=== PATIENT | male | born 1930 | race Caucasian/White ===

== ENCOUNTER 2017-03-15 12:08 | Inpatient (IN) | payer OTHER, MEDICARE ==
[2017-03-15] MEDS ORDERED: IPRATROPIUM/ALBUTEROL 0.5-2.5 MG/3 ML AMPUL NEB ONE (12:12)
[2017-03-15] MEDS ORDERED: ALBUTEROL SULFATE 0.083% NEB 2.5 MG/3 ML AMPUL NEB ONE (12:12)
--- NOTE | 2017-03-15 12:15 | ER Document Report ---
ED General - General Stated Complaint: DIFFICULTY BREATHING Time Seen by Provider: 03/15/17 12:12 Mode of Arrival: Medic Information source: Patient, Emergency Med Personnel Notes: 86-year-old male history of COPD presents in respiratory distress. Patient was found by EMS to be satting 72% on room air. Patient had been complaining of shortness of breath over 3 days with productive cough. Patient was given 2 DuoNeb's 125 mg of Cymetra prior to arrival notes improvement but is still breathing very hard TRAVEL OUTSIDE OF THE [place] IN LAST 30 DAYS: No - HPI Onset: Other - 3 day duration Onset/Duration: Persistent Quality of pain: No pain Severity: Severe Pain Level: Denies Associated symptoms: Productive cough - Yellow cough, Shortness of breath Exacerbated by: Walking, Coughing Relieved by: Denies Similar symptoms previously: No Recently seen / treated by doctor: No - Related Data Allergies/Adverse Reactions: Penicillins Allergy (Verified 03/15/17 13:02) Past Medical History - Social History Smoking Status: Current Every Day Smoker Cigarette use (# per day): Yes Chew tobacco use (# tins/day): No Smoking Education Provided: Yes - Patient counselled regarding cessation for 4 minutes Family History: Reviewed & Not Pertinent Review of Systems - Review of Systems Notes: REVIEW OF SYSTEMS: CONSTITUTIONAL : Denies fever, chills, or sweats. Denies recent illness. EENT: Denies eye, ear, throat, or mouth pain or symptoms. Denies nasal or sinus congestion or discharge. Denies throat, tongue, or mouth swelling or difficulty swallowing. CARDIOVASCULAR: Denies chest pain. Denies palpitations or racing or irregular heart beat. Denies ankle edema. RESPIRATORY: Admits shortness of breath difficulty breathing GASTROINTESTINAL: Denies abdominal pain or distention. Denies nausea, vomiting , or diarrhea. Denies blood in vomitus, stools, or per rectum. Denies black, tarry stools. Denies constipation. GENITOURINARY: Denies difficulty urinating, painful urination, burning, frequency, blood in urine, or discharge. MUSCULOSKELETAL: Denies back or neck pain or stiffness. Denies joint pain or swelling. SKIN: Denies rash, lesions or sores. HEMATOLOGIC : Denies easy bruising or bleeding. LYMPHATIC: Denies swollen, enlarged glands. NEUROLOGICAL: Denies confusion or altered mental status. Denies passing out or loss of consciousness. Denies dizziness or lightheadedness. Denies headache. Denies weakness or paralysis or loss of use of either side. Denies problems with gait or speech. Denies sensory loss, numbness, or tingling. Denies seizures. PSYCHIATRIC: Denies anxiety or stress. Denies depression, suicidal ideation, or homicidal ideation. ALL OTHER SYSTEMS REVIEWED AND NEGATIVE. Dictation was performed using [employer] voice recognition software PHYSICAL EXAMINATION: GENERAL: Cachectic male significant respiratory distress HEAD: Atraumatic, normocephalic. EYES: Pupils equal round and reactive to light, extraocular movements intact, sclera anicteric, conjunctiva are normal. ENT: Nares patent, oropharynx clear without exudates. Moist mucous membranes. NECK: Normal range of motion, supple without lymphadenopathy LUNGS: Decreased breath sounds all throughout faint inspiratory wheezing significant respiratory distress with intercostal supraclavicular retractions HEART: Regular rate and rhythm without murmurs ABDOMEN: Soft, nontender, nondistended abdomen. No guarding, no rebound. No masses appreciated. Musculoskeletal: Normal range of motion, no pitting or edema. No cyanosis. NEUROLOGICAL: Cranial nerves grossly intact. Normal speech, normal gait. Normal sensory, motor exams PSYCH: Normal mood, normal affect. SKIN: Warm, Dry, normal turgor, no rashes or lesions noted. Physical Exam - Vital signs Vitals: Resp 24 H 03/15/17 12:20 Course - Re-evaluation Re-evalutation: 03/15/17 12:15 Patient's O2 sats now has improved significantly at rest the patient is still having significant respiratory distress - Vital Signs Vital signs: Temp Pulse Resp BP Pulse Ox 21 H 106/50 L 96 03/15/17 13:01 03/15/17 13:01 03/15/17 13:01 - Laboratory Result Diagrams: 03/15/17 12:10 03/15/17 12:10 Laboratory results interpreted by me: 03/15/17 03/15/17 03/15/17 12:10 12:10 12:10 WBC 11.1 H Plt Count 138 L Lymphocytes % 12.6 L Absolute Neutrophils 8.4 H VBG pH 7.26 L VBG pCO2 84.2 H* VBG HCO3 37.3 H Chloride 93 L Carbon Dioxide 36 H BUN 23 H Glucose 127 H Calcium 10.3 H Direct Bilirubin 0.5 H Critical Care Note - Critical Care Note Total time excluding time spent on procedures (mins): 37 Comments: please allow for 37 minutes of CC time given respiratroy distress, hypercapnea, use of BIPAP and inpatient IMCU admission. direct face time with patient, family and admitting physician Discharge - Discharge Clinical Impression: Hypercapnia COPD (chronic obstructive pulmonary disease) Qualifiers: COPD type: chronic bronchitis Chronic bronchitis type: simple Qualified Code(s) : J41.0 - Simple chronic bronchitis Condition: Serious Disposition: ADMITTED INPATIENT Admitting Provider: Hospitalist Unit Admitted: IMCU
[2017-03-15 12:34] LABS: VENOUS BLOOD BASE EXCESS 6.3 mmol/L; VENOUS BLOOD HCO3 37.3 mmol/L (20-32); VENOUS BLOOD PH 7.26 (7.30-7.42)
[2017-03-15 12:36] LABS: ABSOLUTE LYMPHOCYTES (AUTO) 1.4 10^3/uL (0.5-4.7); ABSOLUTE MONOCYTES (AUTO) 1.2 10^3/uL (0.1-1.4); ABSOLUTE NEUT (AUTO) 8.4 10^3/uL (1.7-8.2); BASOPHILS % (AUTO) 0.3 % (0-2); EOSINOPHILS % (AUTO) 0.1 % (0-6); HEMATOCRIT 46.3 % (37.9-51.0); HEMOGLOBIN 15.8 g/dL (13.5-17.0); HGB HCT DIFFERENCE 1.1; LYMPHOCYTES % (AUTO) 12.6 % (13-45); MEAN CORPUSCULAR HEMOGLOBIN 31.5 pg (27.0-33.4); MEAN CORPUSCULAR HGB CONC 34.2 g/dL (32.0-36.0); MEAN CORPUSCULAR VOLUME 92 fl (80-97); MONOCYTES % (AUTO) 11.2 % (3-13); RED BLOOD COUNT 5.02 10^6/uL (4.35-5.55); RED CELL DISTRIBUTION WIDTH 13.6 % (11.5-14.0); SEGMENTED NEUTROPHILS % (AUTO) 75.8 % (42-78); WHITE BLOOD COUNT 11.1 10^3/uL (4.0-10.5)
[2017-03-15 12:37] LABS: VENOUS BLOOD PCO2 84.2 mmHg (35-63)
[2017-03-15 12:48] LABS: ALANINE AMINOTRANSFERASE 39 U/L (21-72); ALBUMIN 4.3 g/dL (3.5-5.0); ALKALINE PHOSPHATASE 116 U/L (38-126); ANION GAP 12 (5-19); ASPARTATE AMINO TRANSFERASE 32 U/L (17-59); BILIRUBIN,DIRECT 0.5 mg/dL (0.0-0.4); BILIRUBIN,TOTAL 0.7 mg/dL (0.2-1.3); BLOOD UREA NITROGEN 23 mg/dL (7-20); CALCIUM 10.3 mg/dL (8.4-10.2); CARBON DIOXIDE 36 mmol/L (22-30); CHLORIDE 93 mmol/L (98-107); CREATININE RESULT 0.66 mg/dL (0.52-1.25); GLUCOSE 127 mg/dL (75-110); POTASSIUM 4.4 mmol/L (3.6-5.0); SODIUM 141.4 mmol/L (137-145); TOTAL PROTEIN 7.3 g/dL (6.3-8.2)
--- NOTE | 2017-03-15 12:50 | RADIOLOGY REPORT (SQ) ---
EXAM DESCRIPTION: CHEST SINGLE VIEW COMPLETED DATE/TIME: 03/15/2017 12:42 pm REASON FOR STUDY: bed 9 sepsis protocol COMPARISON: 07/27/2007 NUMBER OF VIEWS: One view. TECHNIQUE: Single frontal radiographic view of the chest acquired. LIMITATIONS: None. FINDINGS: LUNGS AND PLEURA: No opacities, masses or pneumothorax. No pleural effusion. Attenuated bl ood vessels and flattened manuel-diaphragms. MEDIASTINUM AND HILAR STRUCTURES: No masses. Contour normal. HEART AND VASCULAR STRUCTURES: Heart normal in size. Normal vasculature. BONES: No acute findings. HARDWARE: None in the chest. OTHER: No other significant finding. IMPRESSION: COPD. NO ACUTE RADIOGRAPHIC FINDING IN THE CHEST. TECHNICAL DOCUMENTATION: JOB ID: [id number] [employer]- All Rights Reserved
[2017-03-15] MEDS ORDERED: ACETAMINOPHEN 325 MG TABLET PO PRN (13:27)
[2017-03-15] MEDS ORDERED: ONDANSETRON 4 MG TAB.RAPDIS PO PRN (13:27)
--- NOTE | 2017-03-15 13:54 | PDOC H&P ---
History of Present Illness Admission Date/PCP: LAURIE KELLOGG MD Patient complains of: Shortness of breath History of Present Illness: ARACELI PICKETT is a 86 year old male presents to the emergency room due to not been able to breathe. Patient's called paramedics due to patient being sick. Per ER report when patient was seen by the paramedics his O2 sat was in the low 80s. When patient arrived to the emergency room patient was placed on BiPAP due to venous blood gas demonstrated a PCO2 of 84. During my encounter patient was alert and oriented person place and time and answering questions appropriately is at bedside. Patient stated that he had been short of breath for the last several days. Patient also reports that he has been coughing up more phlegm than normal. states that she has noticed that he has not been himself for at least 4-5 days. also was concerned about patient's weight loss. reports that pulmonary doctor stated that he possibly saw a mass on an x-ray. states that no additional studies have been done since then. Past Medical History Cardiac Medical History: Reports: Hyperlipidema, Hypertension Pulmonary Medical History: Reports: Chronic Obstructive Pulmonary Disease (COPD) Past Surgical History Past Surgical History: Reports: Tonsillectomy, Vascular Surgery - veins stripped , carotid artery Social History Smoking Status: Current Every Day Smoker Family History Family History: Reviewed & Not Pertinent Parental Family History Reviewed: Yes - Father was an alcoholic, mother from old age Children Family History Reviewed: Yes Sibling(s) Family History Reviewed.: Yes Medication/Allergy Allergies/Adverse Reactions: Penicillins Allergy (Verified 03/15/17 13:02) Review of Systems Constitutional: PRESENT: fatigue, weakness, weight loss Eyes: ABSENT: visual disturbances Ears: ABSENT: hearing changes Cardiovascular: ABSENT: chest pain, dyspnea on exertion, edema, orthropnea, palpitations Respiratory: PRESENT: cough, dyspnea, sputum Gastrointestinal: ABSENT: abdominal pain, constipation, diarrhea, hematemesis, hematochezia, nausea, vomiting Genitourinary: ABSENT: dysuria, hematuria Musculoskeletal: ABSENT: joint swelling Integumentary: ABSENT: rash, wounds Neurological: ABSENT: abnormal gait, abnormal speech, confusion, dizziness, focal weakness, syncope Psychiatric: ABSENT: anxiety, depression, homidical ideation, suicidal ideation Endocrine: ABSENT: cold intolerance, heat intolerance, polydipsia, polyuria Hematologic/Lymphatic: ABSENT: easy bleeding, easy bruising Physical Exam Vital Signs: Temp Pulse Resp BP Pulse Ox 21 H 106/50 L 96 03/15/17 13:01 03/15/17 13:01 03/15/17 13:01 Intake & Output 03/14/17 03/15/17 03/16/17 06:59 06:59 06:59 Weight 49.442 kg General appearance: PRESENT: mild distress, other - Frail, appears older than stated age, temporal wasting, BiPAP machine in place Head exam: PRESENT: atraumatic, normocephalic Eye exam: PRESENT: conjunctiva pink, EOMI. ABSENT: scleral icterus Ear exam: PRESENT: normal external ear exam Mouth exam: PRESENT: moist, tongue midline Neck exam: ABSENT: carotid bruit, JVD, lymphadenopathy, thyromegaly Respiratory exam: PRESENT: prolonged expiratory phas - Fair air movement heard, wheezes Cardiovascular exam: PRESENT: RRR, tachycardia. ABSENT: diastolic murmur, rubs , systolic murmur Pulses: PRESENT: normal dorsalis pedis pul Vascular exam: PRESENT: normal capillary refill GI/Abdominal exam: PRESENT: normal bowel sounds, soft. ABSENT: distended, guarding, mass, organolmegaly, rebound, tenderness Rectal exam: PRESENT: deferred Extremities exam: PRESENT: full ROM. ABSENT: calf tenderness, clubbing, pedal edema Neurological exam: PRESENT: alert, awake, oriented to person, oriented to place , oriented to time, oriented to situation, CN II-XII grossly intact. ABSENT: motor sensory deficit Psychiatric exam: PRESENT: appropriate affect, normal mood. ABSENT: homicidal ideation, suicidal ideation Skin exam: PRESENT: dry, intact, warm. ABSENT: cyanosis, rash Results Laboratory Results: 03/15/17 12:10 03/15/17 12:10 03/15/17 03/15/17 03/15/17 12:10 12:10 12:10 WBC 11.1 H RBC 5.02 Hgb 15.8 Hct 46.3 MCV 92 MCH 31.5 MCHC 34.2 RDW 13.6 Plt Count 138 L Seg Neutrophils % 75.8 Lymphocytes % 12.6 L Monocytes % 11.2 Eosinophils % 0.1 Basophils % 0.3 Absolute Neutrophils 8.4 H Absolute Lymphocytes 1.4 Absolute Monocytes 1.2 Absolute Eosinophils 0.0 Absolute Basophils 0.0 VBG pH VBG pCO2 VBG HCO3 VBG Base Excess Sodium 141.4 Potassium 4.4 Chloride 93 L Carbon Dioxide 36 H Anion Gap 12 BUN 23 H Creatinine 0.66 Est GFR ( Amer) > 60 Est GFR (Non-Af Amer) > 60 Glucose 127 H Lactic Acid 1.4 Calcium 10.3 H Total Bilirubin 0.7 AST 32 ALT 39 Alkaline Phosphatase 116 Total Protein 7.3 Albumin 4.3 03/15/17 12:10 WBC RBC Hgb Hct MCV MCH MCHC RDW Plt Count Seg Neutrophils % Lymphocytes % Monocytes % Eosinophils % Basophils % Absolute Neutrophils Absolute Lymphocytes Absolute Monocytes Absolute Eosinophils Absolute Basophils VBG pH 7.26 L VBG pCO2 84.2 H* VBG HCO3 37.3 H VBG Base Excess 6.3 Sodium Potassium Chloride Carbon Dioxide Anion Gap BUN Creatinine Est GFR ( Amer) Est GFR (Non-Af Amer) Glucose Lactic Acid Calcium Total Bilirubin AST ALT Alkaline Phosphatase Total Protein Albumin Impressions: Chest X-Ray 03/15/17 12:09 IMPRESSION: COPD. NO ACUTE RADIOGRAPHIC FINDING IN THE CHEST. Assessment & Plan - Diagnosis (1) Acute respiratory failure with hypoxia and hypercapnia Is this a current diagnosis for this admission?: Yes Plan: We will place patient on steroids, breathing treatments, and antibiotics. Patient will continue on BiPAP. Will obtain ABG. Once patient's respiratory function is more stable will obtain CT of chest abdomen and pelvis. (2) COPD (chronic obstructive pulmonary disease) Qualifiers: COPD type: chronic bronchitis Chronic bronchitis type: simple Qualified Code(s): J41.0 - Simple chronic bronchitis Is this a current diagnosis for this admission?: Yes Plan: We will place patient on steroids, breathing treatments, and antibiotics. Will check ABG. Will continue patient on BiPAP. (3) Protein-calorie malnutrition, severe Is this a current diagnosis for this admission?: Yes Plan: Concern for malignancy as to why patient has continued to lose weight. Will check CT of chest abdomen and pelvis once respiratory function has stabilized. Have also recommended that patient see GI for outpatient colonoscopy and EGD. Will place patient on Ensure with meals. In addition patient with has been placed on regular diet. (4) Tobacco abuse Is this a current diagnosis for this admission?: Yes Plan: Encourage patient to discontinue tobacco use. (5) Dyspnea Qualifiers: Dyspnea type: acute respiratory distress Qualified Code(s): R06.03 - Acute respiratory distress Is this a current diagnosis for this admission?: Yes Plan: Secondary to COPD exacerbation: We will continue with steroids, breathing treatments, and antibiotics (6) CAD (coronary artery disease) Is this a current diagnosis for this admission?: Yes Plan: Patient denies chest pain. Will continue to monitor patient (7) Hypertension Qualifiers: Hypertension type: essential hypertension Qualified Code(s): I10 - Essential (primary) hypertension Is this a current diagnosis for this admission?: Yes Plan: Monitor patient's blood pressure throughout hospitalization. (8) Hyperlipidemia Is this a current diagnosis for this admission?: Yes Plan: Continue statin (9) DVT prophylaxis Is this a current diagnosis for this admission?: Yes Plan: Heparin for DVT prophylaxis - Time Time Spent: 30 to 50 Minutes Anticipated discharge: Home
[2017-03-15] MEDS: NORMAL SALINE 1000 ML 1,000 ML IV PRN (14:29)
[2017-03-15] MEDS: METHYLPREDNISOLONE INJ 40 MG/1 ML SDV IV SCH ×2 (14:33→21:07)
[2017-03-15] MEDS: HEPARIN SOD (PORCINE) 5,000 UNIT/ML 1 ML SYRINGE SUBCUT SCH ×2 (14:33→21:07)
[2017-03-15] MEDS ORDERED: LEVOFLOXACIN 500 MG/D5W RTU 500 MG/100 ML RTUPB IV SCH (15:00)
[2017-03-15] MEDS: LEVALBUTEROL HCL NEB 0.63 MG/3 ML AMPUL NEB SCH ×2 (15:34→20:01)
[2017-03-15 16:23] LABS: ARTERIAL BLOOD BASE EXCESS -0.2 mmol/L; ARTERIAL BLOOD O2 SATURATION 96.4 % (94-98)
[2017-03-15] MEDS ORDERED: INFLUENZA ADLT QUAD (36MOS+) 2017-18 VAC 0.5 ML SYR IM PRN (16:52)
--- NOTE | 2017-03-15 19:01 | PDOC CONSULTATION ---
Consultation Consult Date: 03/15/17 Attending physician:: KATHERIN RAMEY Consult reason:: Shortness of breath History of Present Illness Admission Date/PCP: 03/15/17 13:28 LAURIE KELLOGG MD Patient complains of: Shortness of breath History of Present Illness: ARACELI PICKETT is a 86 year old male presents to the emergency room due to not been able to breathe. Patient's called paramedics due to patient being sick. Per ER report when patient was seen by the paramedics his O2 sat was in the low 80s. When patient arrived to the emergency room patient was placed on BiPAP due to venous blood gas demonstrated a PCO2 of 84. During my encounter patient was alert and oriented person place and time and answering questions appropriately is at bedside. Patient stated that he had been short of breath for the last several days. Patient also reports that he has been coughing up more phlegm than normal. states that she has noticed that he has not been himself for at least 4-5 days. also was concerned about patient's weight loss. reports that pulmonary doctor stated that he possibly saw a mass on an x-ray. states that no additional studies have been done since then. This history was reviewed and confirmed. Patient does have history of coronary artery disease having had coronary artery bypass graft surgery many years ago. He denied any anginal type discomfort. Patient also denied any sustained palpitations, syncope, near syncope. Patient still currently smokes. Past Medical History Cardiac Medical History: Reports: Coronary Artery Disease, Hyperlipidema, Hypertension Pulmonary Medical History: Reports: Chronic Obstructive Pulmonary Disease (COPD) Past Surgical History Past Surgical History: Reports: Coronary Artery Bypass Graft, Tonsillectomy, Vascular Surgery - veins stripped, carotid artery Social History Smoking Status: Current Every Day Smoker Cigarettes Packs Per Day: 2 Frequency of Alcohol Use: None Hx Recreational Drug Use: No Drugs: None Hx Prescription Drug Abuse: No - Advance Directive Resuscitation Status: Full Code Surrogate healthcare decision maker:: Patient's is the surrogate decision-maker Family History Family History: CAD, Hypertension Parental Family History Reviewed: Yes Children Family History Reviewed: Yes Sibling(s) Family History Reviewed.: Yes Medication/Allergy Home Medications: Amlodipine Besylate [Norvasc 5 mg Tablet] 5 mg PO DAILY 03/15/17 Aspirin [Ecotrin 81 mg EC Tablet] 81 mg PO DAILY 03/15/17 Atorvastatin Calcium [Lipitor 40 mg Tablet] 40 mg PO QHS 03/15/17 Metoprolol Tartrate [Lopressor 50 mg Tablet] 50 mg PO Q12 03/15/17 Ramipril [Altace 10 mg Capsule] 10 mg PO Q12 03/15/17 Allergies/Adverse Reactions: Penicillins Allergy (Verified 03/15/17 15:25) Sulfa (Sulfonamide Antibiotics) Allergy (Verified 03/15/17 15:25) Physical Exam Vital Signs: Temp Pulse Resp BP Pulse Ox 97.4 F 89 22 H 133/101 H 96 03/15/17 16:08 03/15/17 16:11 03/15/17 16:08 03/15/17 16:08 03/15/17 16:08 Exam: GENERAL: Thin built and cachectic and in mild respiratory distress. Currently wearing BiPAP therapy. Alert and oriented x3 HEAD: Atraumatic, normocephalic. EYES: Pupils equal round and reactive to light, extraocular movements intact, sclera anicteric, conjunctiva are normal. ENT: TMs normal, nares patent, oropharynx clear without exudates. Moist mucous membranes. No oral ulcerations or bleeding gums noted NECK: supple without lymphadenopathy. Trachea is central. No cervical or axillary lymphadenopathy noted. Carotids are 2+, JVD WNL LUNGS: Respiration seems mildly labored, bilateral wheezes rales or rhonchi noted. No significant dullness noted on percussion. CHEST: Palpation of the chest wall shows no significant chest wall tenderness. No other significant abnormalities noted. HEART: [place] BUSHLER, No PSH, 1/6 LORETO aortic area, 1/6 adame systolic murmur mitral area, no rubs, no gallops. ABDOMEN: Soft, no significant tenderness appreciated, normoactive bowel sounds. No guarding, no rebound. No rigidity noted . No masses appreciated. EXTREMITIES: Pedal pulses are 1-2+, no calf tenderness noted. No clubbing or cyanosis.trace to 1+ pedal edema noted NEUROLOGICAL: Focused neurological exam showed no significant neurologic deficit. Normal speech, no focal weakness appreciated. PSYCH: Normal mood, normal affect. Judgment and insight within normal limits. SKIN: No significant ecchymosis, rash, ulcerations or signs of pruritus noted. MUSCULOSKELETAL EXAM: No significant joint swelling noted. Results Laboratory Results: 10/08/17 16:15 Carbonic Acid 1.72 H HCO3/H2CO3 Ratio 15:1 ABG pH 7.30 L ABG pCO2 57.1 H ABG pO2 94.6 ABG HCO3 27.5 H ABG O2 Saturation 96.4 ABG Base Excess -0.2 FiO2 30% 03/15/17 17:52 Troponin I 0.040 EKG Comments: Sinus rhythm, LVH with minor nonspecific ST segment changes. Impressions: Chest X-Ray 03/15/17 12:09 IMPRESSION: COPD. NO ACUTE RADIOGRAPHIC FINDING IN THE CHEST. Assessment & Plan - Diagnosis (1) Acute respiratory failure with hypoxia and hypercapnia Is this a current diagnosis for this admission?: Yes (2) CAD (coronary artery disease) Qualifiers: Coronary Disease-Associated Artery/Lesion type: unspecified vessel or lesion type Associated angina: angina presence unspecified Is this a current diagnosis for this admission?: Yes (3) COPD (chronic obstructive pulmonary disease) Qualifiers: COPD type: chronic bronchitis Chronic bronchitis type: simple Qualified Code(s): J41.0 - Simple chronic bronchitis Is this a current diagnosis for this admission?: Yes (4) Hyperlipidemia Qualifiers: Hyperlipidemia type: unspecified Qualified Code(s): E78.5 - Hyperlipidemia , unspecified Is this a current diagnosis for this admission?: Yes (5) Hypertension Qualifiers: Hypertension type: essential hypertension Qualified Code(s): I10 - Essential (primary) hypertension Is this a current diagnosis for this admission?: Yes (6) Protein-calorie malnutrition, severe Is this a current diagnosis for this admission?: Yes (7) Tobacco abuse Is this a current diagnosis for this admission?: Yes - Notes Notes: Acute respiratory failure: Most likely related to severe COPD with exacerbation. Chest x-ray shows no evidence of CHF. Coronary artery disease: Patient's has known CAD, and status post CABG in the past. Currently no significant EKG changes nor any significant chest discomfort. Will recommend just optimizing medical management. COPD: Patient seems to have severe COPD along with emphysema. Consider pulmonary evaluation. Dyslipidemia: LDL goal should be less than 70. Statins at the preferred treatment. Hypertension: Blood pressure under reasonable control. JAY inhibitors and beta- blockers preferred but beta-blockers may be relatively contraindicated. Tobacco abuse: Patient has been advised to quit smoking. Weight loss along with protein calorie malnutrition: Patient will benefit from improving nutrition. This could be a manifestation of severe COPD. - Time Time Spent: 30 to 50 Minutes - CODE STATUS was discussed, patient remains full code. Surrogate decision-maker unchanged. Multiple medical problems were addressed. More than 50% of the time spent coordinating care, discussing management plans with involved caregivers. Management plans discussed with involved personnels. Medical decision making was of moderate to high complexity , patient's has multiple comorbidities. Medications reviewed and adjusted accordingly: Yes
[2017-03-16] MEDS: LEVALBUTEROL HCL NEB 0.63 MG/3 ML AMPUL NEB SCH ×7 (00:05→23:38)
[2017-03-16] MEDS: NORMAL SALINE 1000 ML 1,000 ML IV PRN (02:40)
[2017-03-16] MEDS: METHYLPREDNISOLONE INJ 40 MG/1 ML SDV IV SCH ×2 (05:56→14:59)
[2017-03-16] MEDS: HEPARIN SOD (PORCINE) 5,000 UNIT/ML 1 ML SYRINGE SUBCUT SCH ×3 (05:56→21:32)
[2017-03-16] MEDS ORDERED: LANSOPRAZOLE 30 MG TAB.RAP.DR PO SCH (06:00)
[2017-03-16 06:18] LABS: ALANINE AMINOTRANSFERASE 38 U/L (21-72); ALBUMIN 3.4 g/dL (3.5-5.0); ALKALINE PHOSPHATASE 79 U/L (38-126); ANION GAP 9 (5-19); ASPARTATE AMINO TRANSFERASE 23 U/L (17-59); BILIRUBIN,DIRECT 0.4 mg/dL (0.0-0.4); BILIRUBIN,TOTAL 0.5 mg/dL (0.2-1.3); BLOOD UREA NITROGEN 38 mg/dL (7-20); CALCIUM 9.5 mg/dL (8.4-10.2); CARBON DIOXIDE 30 mmol/L (22-30); CHLORIDE 99 mmol/L (98-107); CREATININE RESULT 0.83 mg/dL (0.52-1.25); GLUCOSE 107 mg/dL (75-110); MAGNESIUM 1.9 mg/dL (1.6-2.3); PHOSPHORUS 3.3 mg/dL (2.5-4.5); POTASSIUM 4.4 mmol/L (3.6-5.0); SODIUM 138.4 mmol/L (137-145)
--- NOTE | 2017-03-16 06:27 | EKG REPORT ---
SEVERITY:- ABNORMAL ECG - SINUS RHYTHM BIATRIAL ABNORMALITIES NONSPECIFIC INTRAVENTRICULAR CONDUCTION DELAY CONSIDER LEFT VENTRICULAR HYPERTROPHY INFERIOR INFARCT, AGE INDETERMINATE : Confirmed by: Zari Vegas MD 16-Mar-2017 06:26:43
[2017-03-16 06:55] LABS: THYROID STIMULATING HORMONE 1.08 uIU/mL (0.47-4.68)
[2017-03-16 09:31] LABS: ABSOLUTE LYMPHOCYTES (AUTO) 0.7 10^3/uL (0.5-4.7); ABSOLUTE MONOCYTES (AUTO) 0.8 10^3/uL (0.1-1.4); ABSOLUTE NEUT (AUTO) 9.6 10^3/uL (1.7-8.2); BASOPHILS % (AUTO) 0.1 % (0-2); HEMATOCRIT 41.8 % (37.9-51.0); HEMOGLOBIN 14.2 g/dL (13.5-17.0); HGB HCT DIFFERENCE 0.8; LYMPHOCYTES % (AUTO) 6.2 % (13-45); MEAN CORPUSCULAR HEMOGLOBIN 31.2 pg (27.0-33.4); MEAN CORPUSCULAR HGB CONC 33.9 g/dL (32.0-36.0); MEAN CORPUSCULAR VOLUME 92 fl (80-97); MONOCYTES % (AUTO) 7.3 % (3-13); RED BLOOD COUNT 4.54 10^6/uL (4.35-5.55); RED CELL DISTRIBUTION WIDTH 13.5 % (11.5-14.0); SEGMENTED NEUTROPHILS % (AUTO) 86.4 % (42-78); WHITE BLOOD COUNT 11.1 10^3/uL (4.0-10.5)
[2017-03-16] MEDS: LEVOFLOXACIN 250 MG/D5W RTU 250 MG/50 ML RTUPB IV SCH (12:20)
[2017-03-16] MEDS ORDERED: INFLUENZA ADLT QUAD (36MOS+) 2017-18 VAC 0.5 ML SYR IM PRN (15:00)
[2017-03-16] MEDS ORDERED: ONDANSETRON 4 MG TAB.RAPDIS PO PRN (15:30)
--- NOTE | 2017-03-16 15:41 | PDOC PROGRESS REPORT ---
Subjective Progress Note for:: 03/16/17 Subjective:: Patient states that he is doing better. Patient's 2 daughters were in the room with multiple questions about patient's medical situation. Patient's was also present as well. Patient had eaten breakfast prior to my arrival and was on nasal cannula. Family expresses great concern over patient's weight loss. Physical Exam Vital Signs: Temp Pulse Resp BP Pulse Ox 97.6 F 80 22 H 128/55 H 100 03/16/17 12:00 03/16/17 12:25 03/16/17 12:25 03/16/17 12:00 03/16/17 12:00 Intake & Output 03/15/17 03/16/17 03/17/17 06:59 06:59 06:59 Intake Total 950 Balance 950 Weight 49.44 kg General appearance: PRESENT: mild distress, thin, other - Temporal wasting, fragility Head exam: PRESENT: atraumatic, normocephalic Eye exam: PRESENT: conjunctiva pink, EOMI. ABSENT: scleral icterus Ear exam: PRESENT: normal external ear exam Mouth exam: PRESENT: moist, tongue midline Neck exam: ABSENT: carotid bruit, JVD, lymphadenopathy, thyromegaly Respiratory exam: PRESENT: prolonged expiratory phas, rhonchi, wheezes Cardiovascular exam: PRESENT: RRR. ABSENT: diastolic murmur, rubs, systolic murmur Pulses: PRESENT: normal dorsalis pedis pul GI/Abdominal exam: PRESENT: normal bowel sounds, soft. ABSENT: distended, guarding, mass, organolmegaly, rebound, tenderness Rectal exam: PRESENT: deferred Extremities exam: PRESENT: full ROM. ABSENT: calf tenderness, clubbing, pedal edema Neurological exam: PRESENT: alert, awake, oriented to person, oriented to place , oriented to time, oriented to situation, CN II-XII grossly intact. ABSENT: motor sensory deficit Psychiatric exam: PRESENT: appropriate affect, normal mood. ABSENT: homicidal ideation, suicidal ideation Skin exam: PRESENT: dry, intact, warm. ABSENT: cyanosis, rash Results Laboratory Results: 03/16/17 09:10 03/16/17 05:06 03/15/17 03/16/17 03/16/17 16:15 05:06 05:06 WBC Cancelled RBC Cancelled Hgb Cancelled Hct Cancelled MCV Cancelled MCH Cancelled MCHC Cancelled RDW Cancelled Plt Count Cancelled Seg Neutrophils % Lymphocytes % Monocytes % Eosinophils % Basophils % Absolute Neutrophils Absolute Lymphocytes Absolute Monocytes Absolute Eosinophils Absolute Basophils Carbonic Acid 1.72 H HCO3/H2CO3 Ratio 15:1 ABG pH 7.30 L ABG pCO2 57.1 H ABG pO2 94.6 ABG HCO3 27.5 H ABG O2 Saturation 96.4 ABG Base Excess -0.2 FiO2 30% Sodium 138.4 Potassium 4.4 Chloride 99 Carbon Dioxide 30 Anion Gap 9 BUN 38 H Creatinine 0.83 Est GFR ( Amer) > 60 Est GFR (Non-Af Amer) > 60 Glucose 107 Calcium 9.5 Phosphorus 3.3 Magnesium 1.9 Total Bilirubin 0.5 AST 23 ALT 38 Alkaline Phosphatase 79 Total Protein 6.0 L Albumin 3.4 L TSH Free T4 03/16/17 03/16/17 03/16/17 05:06 07:25 09:10 WBC Cancelled 11.1 H RBC Cancelled 4.54 Hgb Cancelled 14.2 Hct Cancelled 41.8 MCV Cancelled 92 MCH Cancelled 31.2 MCHC Cancelled 33.9 RDW Cancelled 13.5 Plt Count Cancelled 178 Seg Neutrophils % Cancelled 86.4 H Lymphocytes % Cancelled 6.2 L Monocytes % Cancelled 7.3 Eosinophils % Cancelled 0.0 Basophils % Cancelled 0.1 Absolute Neutrophils Cancelled 9.6 H Absolute Lymphocytes Cancelled 0.7 Absolute Monocytes Cancelled 0.8 Absolute Eosinophils Cancelled 0.0 Absolute Basophils Cancelled 0.0 Carbonic Acid HCO3/H2CO3 Ratio ABG pH ABG pCO2 ABG pO2 ABG HCO3 ABG O2 Saturation ABG Base Excess FiO2 Sodium Potassium Chloride Carbon Dioxide Anion Gap BUN Creatinine Est GFR ( Amer) Est GFR (Non-Af Amer) Glucose Calcium Phosphorus Magnesium Total Bilirubin AST ALT Alkaline Phosphatase Total Protein Albumin TSH 1.08 Free T4 1.30 03/15/17 03/16/17 03/16/17 17:52 00:22 05:06 Troponin I 0.040 0.035 0.041 03/16/17 11:49 Troponin I 0.032 Impressions: Chest X-Ray 03/15/17 12:09 IMPRESSION: COPD. NO ACUTE RADIOGRAPHIC FINDING IN THE CHEST. Assessment & Plan - Diagnosis (1) Acute respiratory failure with hypoxia and hypercapnia Is this a current diagnosis for this admission?: Yes Plan: Patient appears to be doing better this morning. We will continue BiPAP at bedtime and with naps. Will continue steroids, reading treatments, and antibiotics. (2) COPD (chronic obstructive pulmonary disease) Qualifiers: COPD type: chronic bronchitis Chronic bronchitis type: simple Qualified Code(s): J41.0 - Simple chronic bronchitis Is this a current diagnosis for this admission?: Yes Plan: We will continue BiPAP, breathing treatments, steroids, and antibiotics. Family reports that patient's primary doctor had told him in the past that he needed home oxygen however patient refuses. Patient states that he knows that if he has home oxygen he is not able to smoke. (3) Protein-calorie malnutrition, severe Is this a current diagnosis for this admission?: Yes Plan: Ensure with meals. Will obtain CT of chest abdomen and pelvis to evaluate for malignancy. (4) Tobacco abuse Is this a current diagnosis for this admission?: Yes Plan: Encourage patient to discontinue tobacco use. (5) Dyspnea Qualifiers: Dyspnea type: acute respiratory distress Qualified Code(s): R06.03 - Acute respiratory distress Is this a current diagnosis for this admission?: Yes Plan: Secondary to COPD exacerbation: We will continue with steroids, breathing treatments, and antibiotics (6) CAD (coronary artery disease) Qualifiers: Coronary Disease-Associated Artery/Lesion type: unspecified vessel or lesion type Associated angina: angina presence unspecified Is this a current diagnosis for this admission?: Yes Plan: Patient denies chest pain. Will continue to monitor patient (7) Hypertension Qualifiers: Hypertension type: essential hypertension Qualified Code(s): I10 - Essential (primary) hypertension Is this a current diagnosis for this admission?: Yes Plan: Patient's blood pressure has been well controlled. Have modified patient's home blood pressure medications. (8) Hyperlipidemia Qualifiers: Hyperlipidemia type: unspecified Qualified Code(s): E78.5 - Hyperlipidemia , unspecified Is this a current diagnosis for this admission?: Yes Plan: Continue statin (9) Elevated troponin Is this a current diagnosis for this admission?: Yes Plan: Patient with slight equivocal elevation of troponins in setting of respiratory failure: Most likely supply demand mismatch. Patient has been chest pain-free throughout hospitalization. (10) DVT prophylaxis Is this a current diagnosis for this admission?: Yes Plan: Heparin for DVT prophylaxis - Time Time Spent with patient: 25-34 minutes Anticipated discharge: Home
[2017-03-16 18:56] LABS: APPEARANCE,URINE SLIGHTLY-CLOUDY; BILIRUBIN,URINE NEGATIVE (NEGATIVE); GLUCOSE, URINE NEGATIVE (NEGATIVE); KETONES,URINE NEGATIVE (NEGATIVE); LEUKOCYTE ESTERASE,URINE NEGATIVE (NEGATIVE); NITRITE,URINE NEGATIVE (NEGATIVE); PROTEIN,URINE 100 mg/dL (NEGATIVE); URINE SPECIFIC GRAVITY 1.025; UROBILINOGEN,URINE NEGATIVE mg/dL (<2.0)
--- NOTE | 2017-03-16 18:56 | RADIOLOGY REPORT (SQ) ---
EXAM DESCRIPTION: CT CHEST WITH COMPLETED DATE/TIME: 03/16/2017 6:43 pm REASON FOR STUDY: Concern for malignancy COMPARISON: None. TECHNIQUE: CT scan of the chest performed using helical scanning technique with dynamic intravenous contrast injection. Images reviewed with lung, soft tissue and bone windows. Reconstructed coronal and sagittal MPR images reviewed. All images stored on PACS. All CT scanners at this facility use dose modulation, iterative reconstruction, and/or weight based d osing when appropriate to reduce radiation dose to as low as reasonably achievable (ALARA). [facility]: Dose Right [facility]: CareDose [facility]: Dose Right [facility]: Teradose 4D [facility]: FIGS CONTRAST TYPE AND DOSE: contrast/concentration: Isovue 370.00 mg/ml; Total Contrast Delivered: 80.0 ml; Total Saline Delivered: 55.0 ml RENAL FUNCTION: GFR > 60. RADIATION DOSE: . LIMITATIONS: None. FINDINGS: LUNGS AND PLEURA: Extensive bullous emphysema. No opacities. No effusions. No masses. HILAR AND MEDIASTINAL STRUCTURES: No identified masses or abnormal nodes. HEART AND VASCULAR STRUCTURES: No aneurysm or dissection. No central pulmonary emboli. No pericardi al effusion. Extensive coronary artery calcification. Prior CABG. HARDWARE: None in the chest. UPPER ABDOMEN: See separate report of the CT of the abdomen. THYROID AND OTHER SOFT TISSUES: No masses. No adenopathy. BONES: No significant finding. OTHER: No other significant finding. IMPRESSION: Extensive emphysema. No acute process. TECHNICAL DOCUMENTATION: JOB ID: [id number] Quality ID # [id number]: Final reports with documentation of one or more dose reduction techniques (e.g., Au tomated exposure control, adjustment of the mA and/or kV according to patient size, use of iterative reconstruction technique) 2010 [employer]- All Rights Reserved
--- NOTE | 2017-03-16 19:02 | RADIOLOGY REPORT (SQ) ---
EXAM DESCRIPTION: CT ABD/PELVIS WITH IV ORAL COMPLETED DATE/TIME: 03/16/2017 6:43 pm REASON FOR STUDY: Concern for malignancy COMPARISON: None. TECHNIQUE: CT scan of the abdomen and pelvis performed using helical scanning technique with dynamic intravenous contrast injection. With oral contrast. Images reviewed with lung, soft tissue, and bon e windows. Reconstructed coronal and sagittal MPR images reviewed. Delayed images for evaluation of t he urinary system also acquired. All images stored on PACS. All CT scanners at this facility use dose modulation, iterative reconstruction, and/or weight based d osing when appropriate to reduce radiation dose to as low as reasonably achievable (ALARA). [facility]: Dose Right [facility]: CareDose [facility]: Dose Right [facility]: Teradose 4D [facility]: StyleFeeder CONTRAST TYPE AND DOSE: 80 Isovue 370- low osmolar. RENAL FUNCTION: GFR > 60. RADIATION DOSE: Up-to-date CT equipment and radiation dose reduction techniques were employed. CTDIv ol: 4.8 - 5.7 mGy. DLP: 604 mGy-cm.. LIMITATIONS: None. FINDINGS: LOWER CHEST: See separate report of the CT of the chest. LIVER: Normal size. No masses. No dilated ducts. SPLEEN: Normal size. No focal lesions. PANCREAS: No masses. No significant calcifications. No adjacent inflammation or peripancreatic fluid collections. Pancreatic duct not dilated. GALLBLADDER: No identified stones by CT criteria. No inflammatory changes to suggest cholecystitis. ADRENAL GLANDS: No significant masses or asymmetry. RIGHT KIDNEY AND URETER: Cyst No significant calcifications. No hydronephrosis or hydroureter. LEFT KIDNEY AND URETER: Cyst No significant calcifications. No hydronephrosis or hydroureter. AORTA AND VESSELS: Extensive vascular calcification. 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 RETROPERITONEUM: No retroperitoneal adenopathy, hemorrhage or masses. BOWEL AND PERITONEAL CAVITY: No masses or inflammatory changes. No free fluid or peritoneal masses. APPENDIX: Normal. PELVIS: No mass. No free fluid. Normal bladder. ABDOMINAL WALL: No masses. No hernias. BONES: No significant or acute findings. OTHER: No other significant finding. IMPRESSION: No acute findings. 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 TECHNICAL DOCUMENTATION: JOB ID: [id number] Quality ID # [id number]: Final reports with documentation of one or more dose reduction techniques (e.g., Au tomated exposure control, adjustment of the mA and/or kV according to patient size, use of iterative reconstruction technique) 2010 [employer]- All Rights Reserved
--- NOTE | 2017-03-16 19:59 | PDOC PROGRESS REPORT ---
Subjective Progress Note for:: 03/16/17 Subjective:: Patient seems to be doing better with some improvement. Pt is denying any chest arm or neck discomfort. Patient denying any PND, orthopnea. Patient denied any sustained palpitations, dizziness, syncope, near syncope. Patient denying any fever chills. Patient denying any other significant discomfort. Patient is maintaining sinus rhythm. Multiple family members in the room. They are concerned that home cardiac medications have not been restarted. It seems that they are on hold because of low blood pressure. Review of systems: Rest review of systems negative. Medications: Medications have been reviewed. Physical Exam Vital Signs: Temp Pulse Resp BP Pulse Ox 98.0 F 81 19 112/43 L 94 03/16/17 15:24 03/16/17 19:51 03/16/17 19:51 03/16/17 15:24 03/16/17 19:51 Intake & Output 03/15/17 03/16/17 03/17/17 06:59 06:59 06:59 Intake Total 950 840 Output Total 200 Balance 950 640 Weight 49.44 kg Results Laboratory Results: 03/16/17 09:10 03/16/17 05:06 03/16/17 03/16/17 03/16/17 05:06 05:06 05:06 WBC Cancelled RBC Cancelled Hgb Cancelled Hct Cancelled MCV Cancelled MCH Cancelled MCHC Cancelled RDW Cancelled Plt Count Cancelled Seg Neutrophils % Lymphocytes % Monocytes % Eosinophils % Basophils % Absolute Neutrophils Absolute Lymphocytes Absolute Monocytes Absolute Eosinophils Absolute Basophils Sodium 138.4 Potassium 4.4 Chloride 99 Carbon Dioxide 30 Anion Gap 9 BUN 38 H Creatinine 0.83 Est GFR ( Amer) > 60 Est GFR (Non-Af Amer) > 60 Glucose 107 Calcium 9.5 Phosphorus 3.3 Magnesium 1.9 Total Bilirubin 0.5 AST 23 ALT 38 Alkaline Phosphatase 79 Total Protein 6.0 L Albumin 3.4 L TSH 1.08 Free T4 1.30 Urine Color Urine Appearance Urine pH Ur Specific Wing Urine Protein Urine Glucose (UA) Urine Ketones Urine Blood Urine Nitrite Ur Leukocyte Esterase Urine WBC (Auto) Urine RBC (Auto) 03/16/17 03/16/17 03/16/17 07:25 09:10 14:30 WBC Cancelled 11.1 H RBC Cancelled 4.54 Hgb Cancelled 14.2 Hct Cancelled 41.8 MCV Cancelled 92 MCH Cancelled 31.2 MCHC Cancelled 33.9 RDW Cancelled 13.5 Plt Count Cancelled 178 Seg Neutrophils % Cancelled 86.4 H Lymphocytes % Cancelled 6.2 L Monocytes % Cancelled 7.3 Eosinophils % Cancelled 0.0 Basophils % Cancelled 0.1 Absolute Neutrophils Cancelled 9.6 H Absolute Lymphocytes Cancelled 0.7 Absolute Monocytes Cancelled 0.8 Absolute Eosinophils Cancelled 0.0 Absolute Basophils Cancelled 0.0 Sodium Potassium Chloride Carbon Dioxide Anion Gap BUN Creatinine Est GFR ( Amer) Est GFR (Non-Af Amer) Glucose Calcium Phosphorus Magnesium Total Bilirubin AST ALT Alkaline Phosphatase Total Protein Albumin TSH Free T4 Urine Color YELLOW Urine Appearance SLIGHTLY-CLOUDY Urine pH 5.0 Ur Specific Wing 1.025 Urine Protein 100 H Urine Glucose (UA) NEGATIVE Urine Ketones NEGATIVE Urine Blood SMALL H Urine Nitrite NEGATIVE Ur Leukocyte Esterase NEGATIVE Urine WBC (Auto) 5 Urine RBC (Auto) 5 03/15/17 03/16/17 03/16/17 17:52 00:22 05:06 Troponin I 0.040 0.035 0.041 03/16/17 03/16/17 11:49 18:15 Troponin I 0.032 0.038 Impressions: Chest X-Ray 03/15/17 12:09 IMPRESSION: COPD. NO ACUTE RADIOGRAPHIC FINDING IN THE CHEST. Abdomen/Pelvis CT 03/16/17 15:25 IMPRESSION: No acute findings. 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 Chest CT 03/16/17 15:25 IMPRESSION: Extensive emphysema. No acute process. Assessment & Plan - Diagnosis (1) Acute respiratory failure with hypoxia and hypercapnia Is this a current diagnosis for this admission?: Yes (2) CAD (coronary artery disease) Qualifiers: Coronary Disease-Associated Artery/Lesion type: unspecified vessel or lesion type Associated angina: angina presence unspecified Is this a current diagnosis for this admission?: Yes (3) COPD (chronic obstructive pulmonary disease) Qualifiers: COPD type: chronic bronchitis Chronic bronchitis type: simple Qualified Code(s): J41.0 - Simple chronic bronchitis Is this a current diagnosis for this admission?: Yes (4) Hyperlipidemia Qualifiers: Hyperlipidemia type: unspecified Qualified Code(s): E78.5 - Hyperlipidemia , unspecified Is this a current diagnosis for this admission?: Yes (5) Hypertension Qualifiers: Hypertension type: essential hypertension Qualified Code(s): I10 - Essential (primary) hypertension Is this a current diagnosis for this admission?: Yes (6) Protein-calorie malnutrition, severe Is this a current diagnosis for this admission?: Yes (7) Tobacco abuse Is this a current diagnosis for this admission?: Yes - Notes Notes: Acute respiratory failure: Most likely related to severe COPD with exacerbation. Chest x-ray shows no evidence of CHF. CT scan results reviewed. Coronary artery disease: Patient's has known CAD, and status post CABG in the past. Currently no significant EKG changes nor any significant chest discomfort. Will recommend just optimizing medical management. Patient was supposed to have an echocardiogram as an outpatient. They prefer to have it done as an inpatient therefore this order was entered. COPD: Patient seems to have severe COPD along with emphysema. Consider pulmonary evaluation. Dyslipidemia: LDL goal should be less than 70. Statins at the preferred treatment. Hypertension: Blood pressure under reasonable control, however noted to be on the low side. JAY inhibitors and beta-blockers preferred but beta-blockers may be relatively contraindicated. Tobacco abuse: Patient has been advised to quit smoking. Weight loss along with protein calorie malnutrition: Patient will benefit from improving nutrition. This could be a manifestation of severe COPD. - Time Time with patient: 15-25 minutes Medications reviewed and adjusted accordingly: Yes
[2017-03-16] MEDS: METHYLPREDNISOLONE INJ 125 MG/2 ML SDV IV SCH (21:32)
[2017-03-16] MEDS: METOPROLOL TARTRATE 50 MG TABLET PO SCH (21:32)
[2017-03-16] MEDS: ATORVASTATIN CALCIUM 40 MG TABLET PO SCH (21:32)
[2017-03-17] MEDS: LEVALBUTEROL HCL NEB 0.63 MG/3 ML AMPUL NEB SCH ×6 (03:50→23:48)
[2017-03-17] MEDS: HEPARIN SOD (PORCINE) 5,000 UNIT/ML 1 ML SYRINGE SUBCUT SCH ×3 (05:52→22:28)
[2017-03-17] MEDS: METHYLPREDNISOLONE INJ 125 MG/2 ML SDV IV SCH ×3 (05:53→22:28)
[2017-03-17] MEDS: LANSOPRAZOLE 30 MG TAB.RAP.DR PO SCH (05:53)
[2017-03-17] MEDS: NORMAL SALINE 1000 ML 1,000 ML IV PRN (05:55)
[2017-03-17] MEDS: LEVOFLOXACIN 250 MG/D5W RTU 250 MG/50 ML RTUPB IV SCH (11:05)
[2017-03-17] MEDS: ASPIRIN 81 MG TABLET, ENT COATED PO SCH (11:06)
[2017-03-17] MEDS: METOPROLOL TARTRATE 50 MG TABLET PO SCH ×2 (11:06→22:28)
--- NOTE | 2017-03-17 12:44 | XCELERA REPORT ---
[address] [address] Transthoracic Echocardiogram Report Name: ARACELI PICKETT Age: 86 yrs Gender: Male : 1930 Patient Status: Inpatient Patient Location: [address] [place] [address] Study Date: 03/17/2017 09:16 AM Height: 68 in Weight: 108 lb BSA: 1.6 m2 Procedure: A complete two-dimensional transthoracic echocardiogram was performed (2D, M-mode, spectral and color flow Doppler). The study was technically adequate with some images being suboptimal in quality. Reason For Study: Hypotension Ordering Physician: LUCIO HANSON Performed By: Gilles Rodriguez Interpretation Summary The left ventricular ejection fraction is normal. There is mild concentric left ventricular hypertrophy. Doppler measurements suggest pseudonormalized left ventricular relaxation, which is associated with grade II/IV or mild to moderate diastolic dysfunction The left ventricle is grossly normal size. Wall motion cannot be accurately commented on, but no definite regional wall motion abnormalities noted. The right ventricle is mildly dilated. The right atrium is normal in size The left atrial size is normal. There is a trace to mild amount of mitral regurgitation There is no mitral valve stenosis. No aortic regurgitation is present. There is no aortic valve stenosis There is a trace or physiologic amount of tricuspid regurgitation Tricuspid regurgitation jet envelope not well defined to measure RV systolic pressure accurately. The aortic root is not well visualized. The inferior vena cava appeared normal and decreased > 50% with respiration (RAP 5-10 mmHg) There is no pericardial effusion. MMode/2D Measurements & Calculations RVDd: 2.4 cm LVIDd: 5.3 cm FS: 35.7 % Ao root diam: 3.0 cm IVSd: 0.95 cm LVIDs: 3.4 cm EDV(Teich): 132.7 ml LVPWd: 0.95 cm ESV(Teich): 46.7 ml Ao root area: 7.0 cm2 EF(Teich): 64.8 % Doppler Measurements & Calculations MV E max melissa: MV dec slope: Ao V2 max: LV V1 max P.3 cm/sec 181.0 cm/sec 3.8 mmHg MV A max melissa: 457.3 cm/sec2 Ao max PG: LV V1 max: 117.9 cm/sec MV dec time: 13.1 mmHg 97.5 cm/sec MV E/A: 0.72 0.19 sec PA V2 max: TR max melissa: RAP systole: 110.0 cm/sec 272.8 cm/sec 5.0 mmHg PA max P.8 mmHg TR max P.8 mmHg RVSP(TR): 34.8 mmHg Left Ventricle The left ventricle is grossly normal size. There is mild concentric left ventricular hypertrophy. The left ventricular ejection fraction is normal. Doppler measurements suggest pseudonormalized left ventricular relaxation, which is associated with grade II/IV or mild to moderate diastolic dysfunction. Wall motion cannot be accurately commented on, but no definite regional wall motion abnormalities noted. Right Ventricle The right ventricle is mildly dilated. There is normal right ventricular wall thickness. The right ventricular systolic function is normal. Atria The right atrium is normal in size. The left atrial size is normal. Interarterial septum not well visualized and not well dopplered. Cannot comment on ASD/PFO presence. Mitral Valve The mitral valve leaflets are sclerotic, but show no functional abnormalities. There is no mitral valve stenosis. There is a trace to mild amount of mitral regurgitation. Aortic Valve The aortic valve is moderately calcified. The aortic valve opens well. A bicuspid aortic valve cannot be excluded. There is no aortic valve stenosis. No aortic regurgitation is present. Tricuspid Valve The tricuspid valve is not well visualized, but is grossly normal. There is no tricuspid stenosis. There is a trace or physiologic amount of tricuspid regurgitation. Tricuspid regurgitation jet envelope not well defined to measure RV systolic pressure accurately. Pulmonic Valve The pulmonic valve is not well visualized. Great Vessels The aortic root is not well visualized. The inferior vena cava appeared normal and decreased > 50% with respiration (RAP 5-10 mmHg). Effusions There is no pericardial effusion. : LUCIO HANSON > Lucio Hanson
--- NOTE | 2017-03-17 19:26 | PDOC PROGRESS REPORT ---
Subjective Progress Note for:: 03/17/17 Subjective:: Patient is a 86-year-old male who has advanced lung disease who continues to smoke and uses inhalers intermittently. Patient does not want any intervention. Physical Exam Vital Signs: Temp Pulse Resp BP Pulse Ox 97.7 F 59 L 16 130/48 H 95 03/17/17 16:24 03/17/17 16:24 03/17/17 16:24 03/17/17 16:24 03/17/17 16:24 Intake & Output 03/16/17 03/17/17 03/18/17 06:59 06:59 06:59 Intake Total 950 3165 1029 Output Total 200 Balance 950 2965 1029 Weight 49.44 kg 53.07 kg General appearance: PRESENT: no acute distress, thin Head exam: PRESENT: normocephalic Eye exam: PRESENT: EOMI Neck exam: PRESENT: full ROM Respiratory exam: PRESENT: decreased breath sounds, unlabored. ABSENT: wheezes Cardiovascular exam: PRESENT: RRR, +S1, +S2 GI/Abdominal exam: PRESENT: normal bowel sounds, soft. ABSENT: tenderness Rectal exam: PRESENT: deferred Extremities exam: ABSENT: pedal edema, tenderness Musculoskeletal exam: PRESENT: ambulatory, full ROM Neurological exam: PRESENT: alert, awake, oriented to person, oriented to place , oriented to time, oriented to situation, CN II-XII grossly intact Psychiatric exam: PRESENT: normal mood Skin exam: PRESENT: pallor Results Laboratory Results: 03/16/17 09:10 03/16/17 05:06 03/15/17 03/16/17 03/16/17 17:52 00:22 05:06 Troponin I 0.040 0.035 0.041 03/16/17 03/16/17 11:49 18:15 Troponin I 0.032 0.038 Impressions: Chest X-Ray 03/15/17 12:09 IMPRESSION: COPD. NO ACUTE RADIOGRAPHIC FINDING IN THE CHEST. Abdomen/Pelvis CT 03/16/17 15:25 IMPRESSION: No acute findings. 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 Chest CT 03/16/17 15:25 IMPRESSION: Extensive emphysema. No acute process. Assessment & Plan - Diagnosis (1) Acute respiratory failure with hypoxia and hypercapnia Is this a current diagnosis for this admission?: Yes Plan: Is slowly improving. Patient on steroids and antibiotics along with breathing treatments. BiPAP at night. Patient may benefit from home O2 however patient does not want this is he wants to continue to smoke (2) CAD (coronary artery disease) Qualifiers: Coronary Disease-Associated Artery/Lesion type: unspecified vessel or lesion type Associated angina: angina presence unspecified Is this a current diagnosis for this admission?: Yes Plan: Continue beta alysa, aspirin and statin. (3) COPD (chronic obstructive pulmonary disease) Qualifiers: COPD type: chronic bronchitis Chronic bronchitis type: simple Qualified Code(s): J41.0 - Simple chronic bronchitis Is this a current diagnosis for this admission?: Yes Plan: Continue steroids antibiotics and nebs. Patient will benefit from smoking cessation however he continues to smoke. (4) DVT prophylaxis Is this a current diagnosis for this admission?: Yes Plan: Continue heparin. (5) Elevated troponin Is this a current diagnosis for this admission?: Yes Plan: Most likely due to demand ischemia. Cardiac echo was completed today. Patient denies any chest pain. (6) Hyperlipidemia Qualifiers: Hyperlipidemia type: unspecified Qualified Code(s): E78.5 - Hyperlipidemia , unspecified Is this a current diagnosis for this admission?: Yes Plan: Continue on statin (7) Protein-calorie malnutrition, severe Is this a current diagnosis for this admission?: Yes Plan: Ensure with meals. CT of chest abdomen and pelvis has no obvious findings for malignancy. Patient weight loss may be due to his chronic lung disease. (8) Tobacco abuse Is this a current diagnosis for this admission?: Yes Plan: Counseled on cessation. - Time Time Spent with patient: 15-24 minutes Anticipated discharge: Home with Homehealth - Will continue to monitor patient respiratory status closely. Because patient does not want any intervention and wants to continue to smoke. He may benefit from palliative care.
[2017-03-17] MEDS: ATORVASTATIN CALCIUM 40 MG TABLET PO SCH (22:28)
[2017-03-18] MEDS: ACETAMINOPHEN 325 MG TABLET PO PRN ×2 (01:46→13:00)
[2017-03-18] MEDS: LEVALBUTEROL HCL NEB 0.63 MG/3 ML AMPUL NEB SCH ×6 (03:56→23:53)
[2017-03-18] MEDS: HEPARIN SOD (PORCINE) 5,000 UNIT/ML 1 ML SYRINGE SUBCUT SCH ×3 (05:20→21:29)
[2017-03-18] MEDS: LANSOPRAZOLE 30 MG TAB.RAP.DR PO SCH (05:20)
[2017-03-18] MEDS: METHYLPREDNISOLONE INJ 125 MG/2 ML SDV IV SCH ×2 (05:21→16:57)
--- NOTE | 2017-03-18 09:35 | RADIOLOGY REPORT (SQ) ---
EXAM DESCRIPTION: HIP RIGHT AP/LATERAL COMPLETED DATE/TIME: 03/18/2017 9:06 am REASON FOR STUDY: fall COMPARISON: CT abdomen and pelvis 03/16/2017 NUMBER OF VIEWS: Two views. TECHNIQUE: AP pelvis and additional frog-leg view of the right hip. LIMITATIONS: None. FINDINGS: MINERALIZATION: Osteopenic RIGHT HIP: No fracture or dislocation. No worrisome bone lesions. High-grade joint space narrowing with mild osteophyte formation. LEFT HIP: No fracture or dislocation. No worrisome bone lesions. Mild left hip joint space narrowin g. No significant bony spurs PUBIS AND ISCHIUM: No fracture. PELVIS: No fracture. SACRUM: No fracture or dislocation. No worrisome bone lesions. LOWER LUMBAR SPINE: Advanced disc space loss of height at L3-4, L4-5, L5-S1 SOFT TISSUES: Atherosclerotic aortoiliac calcification OTHER: No other significant finding. IMPRESSION: Advanced joint space narrowing right hip with bony spurring. No fracture. TECHNICAL DOCUMENTATION: JOB ID: [id number] [employer]- All Rights Reserved
[2017-03-18] MEDS: LEVOFLOXACIN 250 MG TABLET PO SCH (11:10)
[2017-03-18] MEDS: ASPIRIN 81 MG TABLET, ENT COATED PO SCH (11:13)
[2017-03-18] MEDS: METOPROLOL TARTRATE 50 MG TABLET PO SCH ×2 (11:13→21:28)
[2017-03-18] MEDS ORDERED: MONTELUKAST SODIUM 10 MG TABLET PO ONE (12:00)
[2017-03-18] MEDS ORDERED: TRAMADOL HCL 50 MG TABLET PO PRN (15:37)
[2017-03-18] MEDS: ZINC OXIDE 20% OINTMENT 28.35 GM TP SCH (16:57)
[2017-03-18] MEDS: OXYCODONE HCL IR 5 MG TABLET PO PRN (19:49)
--- NOTE | 2017-03-18 20:17 | PDOC PROGRESS REPORT ---
Subjective Progress Note for:: 03/18/17 Subjective:: Patient seems to be doing better with significant improvement. Dyspnea is much improved. Pt is denying any chest arm or neck discomfort. Patient denying any PND, orthopnea. Patient denied any sustained palpitations, dizziness, syncope, near syncope. Patient denying any fever chills. Patient denying any other significant discomfort. Patient is maintaining sinus rhythm. Review of systems: Rest review of systems negative. Medications: Medications have been reviewed. Physical Exam Vital Signs: Temp Pulse Resp BP Pulse Ox 98.3 F 78 24 H 120/68 98 03/18/17 16:07 03/18/17 16:07 03/18/17 16:07 03/18/17 16:07 03/18/17 16:07 Intake & Output 03/17/17 03/18/17 03/19/17 06:59 06:59 06:59 Intake Total 3165 1604 980 Output Total 200 Balance 2965 1604 980 Weight 53.07 kg 54.7 kg Exam: GENERAL: Thin built and seems undernourished and in no acute distress. Alert and oriented x3 HEAD: Atraumatic, normocephalic. EYES: Pupils equal round and reactive to light, extraocular movements intact, sclera anicteric, conjunctiva are normal. ENT: TMs normal, nares patent, oropharynx clear without exudates. Moist mucous membranes. No oral ulcerations or bleeding gums noted NECK: supple without lymphadenopathy. Trachea is central. No cervical or axillary lymphadenopathy noted. Carotids are 2+, JVD WNL LUNGS: Respiration seems nonlabored, no significant accessory muscle action noted. Mild bilateral wheezing noted. No dullness noted. CHEST: Palpation of the chest wall shows no significant chest wall tenderness. No other significant abnormalities noted. 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 ABDOMEN: Soft, no significant tenderness appreciated, normoactive bowel sounds. No guarding, no rebound. No rigidity noted . No masses appreciated. EXTREMITIES: Pedal pulses are 1-2+, no calf tenderness noted. No clubbing or cyanosis.trace + pedal edema noted NEUROLOGICAL: Focused neurological exam showed no significant neurologic deficit. Normal speech, no focal weakness appreciated. PSYCH: Normal mood, normal affect. Judgment and insight within normal limits. SKIN: No significant ecchymosis, rash, ulcerations or signs of pruritus noted. MUSCULOSKELETAL EXAM: No significant joint swelling noted. Results Laboratory Results: 03/16/17 09:10 03/16/17 05:06 03/16/17 09:45 Sputum Gram Stain - Final 03/16/17 09:45 Sputum Sputum Culture - Final NORMAL SHEA 03/16/17 14:30 Clean Catch Midstream Urine Culture - Final Mixed Urogenital Shea 03/15/17 03/16/17 03/16/17 17:52 00:22 05:06 Troponin I 0.040 0.035 0.041 03/16/17 03/16/17 11:49 18:15 Troponin I 0.032 0.038 Impressions: Chest X-Ray 03/15/17 12:09 IMPRESSION: COPD. NO ACUTE RADIOGRAPHIC FINDING IN THE CHEST. Abdomen/Pelvis CT 03/16/17 15:25 IMPRESSION: No acute findings. 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 Chest CT 03/16/17 15:25 IMPRESSION: Extensive emphysema. No acute process. Hip/Pelvis X-Ray 03/18/17 00:00 IMPRESSION: Advanced joint space narrowing right hip with bony spurring. No fracture. Assessment & Plan - Diagnosis (1) Acute respiratory failure with hypoxia and hypercapnia Is this a current diagnosis for this admission?: Yes (2) CAD (coronary artery disease) Qualifiers: Coronary Disease-Associated Artery/Lesion type: unspecified vessel or lesion type Associated angina: angina presence unspecified Is this a current diagnosis for this admission?: Yes (3) COPD (chronic obstructive pulmonary disease) Qualifiers: COPD type: chronic bronchitis Chronic bronchitis type: simple Qualified Code(s): J41.0 - Simple chronic bronchitis Is this a current diagnosis for this admission?: Yes (4) Hyperlipidemia Qualifiers: Hyperlipidemia type: unspecified Qualified Code(s): E78.5 - Hyperlipidemia , unspecified Is this a current diagnosis for this admission?: Yes (5) Hypertension Qualifiers: Hypertension type: essential hypertension Qualified Code(s): I10 - Essential (primary) hypertension Is this a current diagnosis for this admission?: Yes (6) Protein-calorie malnutrition, severe Is this a current diagnosis for this admission?: Yes (7) Tobacco abuse Is this a current diagnosis for this admission?: Yes - Notes Notes: Patient overall seems significantly improved. 2D echo results were reviewed. It showed normal LVEF. No significant stenotic valve disease or valvular regurgitation noted. Discussed with the patient and family that his main problem seems to be severe COPD and very advanced emphysema and that he would benefit from tobacco cessation. 2D echo results were reviewed. Will continue to follow tomorrow and he see does well, will sign off. Patient' s medical regimen was reviewed. - Time Time with patient: 15-25 minutes - CODE STATUS : was discussed, patient remains DO NOT RESUSCITATE. Surrogate decision-maker unchanged. Multiple medical problems were addressed. More than 50% of the time spent coordinating care, discussing management plans with involved caregivers. Management plans discussed with involved personnels. Medical decision making was of moderate to high complexity, patient's has multiple comorbidities. Medications reviewed and adjusted accordingly: Yes
[2017-03-18] MEDS: ATORVASTATIN CALCIUM 40 MG TABLET PO SCH (21:28)
[2017-03-18] MEDS: GABAPENTIN 100 MG CAPSULE PO SCH (21:28)
[2017-03-19] MEDS: OXYCODONE HCL IR 5 MG TABLET PO PRN ×4 (00:17→19:52)
[2017-03-19] MEDS: LEVALBUTEROL HCL NEB 0.63 MG/3 ML AMPUL NEB SCH ×6 (03:24→23:46)
[2017-03-19] MEDS: LANSOPRAZOLE 30 MG TAB.RAP.DR PO SCH (05:23)
[2017-03-19] MEDS: METHYLPREDNISOLONE INJ 125 MG/2 ML SDV IV SCH (05:23)
[2017-03-19] MEDS: GABAPENTIN 100 MG CAPSULE PO SCH ×3 (05:23→22:05)
[2017-03-19] MEDS: HEPARIN SOD (PORCINE) 5,000 UNIT/ML 1 ML SYRINGE SUBCUT SCH ×3 (05:23→22:02)
[2017-03-19] MEDS ORDERED: PREDNISONE 20 MG TABLET PO ONE (09:30)
[2017-03-19] MEDS: ASPIRIN 81 MG TABLET, ENT COATED PO SCH (09:39)
[2017-03-19] MEDS: METOPROLOL TARTRATE 50 MG TABLET PO SCH ×2 (09:39→22:04)
[2017-03-19] MEDS: LEVOFLOXACIN 250 MG TABLET PO SCH (09:39)
[2017-03-19] MEDS: ZINC OXIDE 20% OINTMENT 28.35 GM TP SCH ×2 (09:39→22:05)
--- NOTE | 2017-03-19 16:35 | PDOC CONSULTATION ---
Consultation Consult Date: 03/18/17 Consult reason:: Right hip pain status post fall History of Present Illness Admission Date/PCP: 03/15/17 13:28 LAURIE KELLOGG MD Patient complains of: Pain in the right hip with ambulation and range of motion History of Present Illness: 86-year-old gentleman admitted for pneumonia and other medical reasons who status post fall on 03/17/2017. States since the fall has having significant pain with range of motion and weightbearing. He does admit that he has been having on and off pain for years in that right hip but now has increased pain since the fall. Denies any numbness or tingling or paresthesias. Denies any numbness or tingling. States the weakness is second the pain. Denies any other extremity pain and denies any loss of consciousness. Describes the pain right now to be 5 out of 5 with weightbearing and ambulation. At rest pain is about a 2 out of 5 and it is in the groin anterior hip. Past Medical History Cardiac Medical History: Reports: Coronary Artery Disease, Hyperlipidema, Hypertension Pulmonary Medical History: Reports: Chronic Obstructive Pulmonary Disease (COPD) Past Surgical History Past Surgical History: Reports: Coronary Artery Bypass Graft, Tonsillectomy, Vascular Surgery - veins stripped, carotid artery Social History Smoking Status: Current Every Day Smoker Cigarettes Packs Per Day: 2 Frequency of Alcohol Use: None Hx Recreational Drug Use: No Drugs: None Hx Prescription Drug Abuse: No - Advance Directive Resuscitation Status: Full Code Family History Family History: Reviewed & Not Pertinent Parental Family History Reviewed: No Children Family History Reviewed: No Sibling(s) Family History Reviewed.: No Medication/Allergy Home Medications: Amlodipine Besylate [Norvasc 5 mg Tablet] 5 mg PO DAILY 03/15/17 Aspirin [Ecotrin 81 mg EC Tablet] 81 mg PO DAILY 03/15/17 Atorvastatin Calcium [Lipitor 40 mg Tablet] 40 mg PO QHS 03/15/17 Metoprolol Tartrate [Lopressor 50 mg Tablet] 50 mg PO Q12 03/15/17 Ramipril [Altace 10 mg Capsule] 10 mg PO Q12 03/15/17 Allergies/Adverse Reactions: Penicillins Allergy (Verified 03/15/17 15:25) Sulfa (Sulfonamide Antibiotics) Allergy (Verified 03/15/17 15:25) Review of Systems All systems: reviewed and no additional remarkable complaints except as stated Physical Exam Vital Signs: Temp Pulse Resp BP Pulse Ox 36.3 C 84 20 105/46 L 95 03/19/17 16:26 03/19/17 16:26 03/19/17 16:26 03/19/17 16:26 03/19/17 16:26 Intake & Output 03/18/17 03/19/17 03/20/17 06:59 06:59 06:59 Intake Total 1604 1760 Balance 1604 1760 Weight 54.7 kg 54.4 kg General appearance: PRESENT: no acute distress, well-nourished Eye exam: PRESENT: EOMI Neck exam: ABSENT: tenderness, thyromegaly, tracheal deviation Respiratory exam: PRESENT: symmetrical, unlabored. ABSENT: accessory muscle use , tachypnea Pulses: PRESENT: +2 pedal pulses bilateral Vascular exam: PRESENT: normal capillary refill GI/Abdominal exam: PRESENT: soft. ABSENT: distended, guarding, organolmegaly, rigid, tenderness Neurological exam: PRESENT: alert, awake, oriented to person, oriented to place , oriented to time, oriented to situation Psychiatric exam: PRESENT: appropriate affect, normal mood Skin exam: PRESENT: intact, normal color. ABSENT: abrasion, erythema, rash Adult Front & Back Image: 1 - Tender to palpation over the right groin and and to her hip. No tenderness over the greater trochanter. Limb lengths are grossly equal. Pain with flexion of the hip and pain with flexion and internal rotation of the hip. Good sensation to light touch distally with good capillary refill. Internal rotation is at 0 with hip flexed Results Laboratory Results: 03/16/17 09:10 03/16/17 05:06 03/15/17 03/16/17 03/16/17 17:52 00:22 05:06 Troponin I 0.040 0.035 0.041 03/16/17 03/16/17 11:49 18:15 Troponin I 0.032 0.038 Impressions: Chest X-Ray 03/15/17 12:09 IMPRESSION: COPD. NO ACUTE RADIOGRAPHIC FINDING IN THE CHEST. Abdomen/Pelvis CT 03/16/17 15:25 IMPRESSION: No acute findings. 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 Chest CT 03/16/17 15:25 IMPRESSION: Extensive emphysema. No acute process. Hip/Pelvis X-Ray 03/18/17 00:00 IMPRESSION: Advanced joint space narrowing right hip with bony spurring. No fracture. Status: Image reviewed by me Assessment & Plan - Diagnosis (1) Hip osteoarthritis Qualifiers: Osteoarthritis type: primary Laterality: right Qualified Code(s): M16.11 - Unilateral primary osteoarthritis, right hip Is this a current diagnosis for this admission?: Yes Plan: 86-year-old gentleman with exacerbation of his hip arthritis on the right side. X-rays show severe osteoarthritis with no joint space left. He has significant osteophytes as well. I believe the fall has irritated this. The CT scan and x-rays are negative for fracture. Recommend anti-inflammatories and pain control. Differential could be a bone contusion versus nondisplaced fracture that could only be seen on MRI but this moment do not deem necessary. Weight-bear as tolerated with physical therapy. Anticipate need of a walker until he can bear weight fully with time. If symptoms persist I recommend he consult radiology for a C-arm guided intra- articular corticosteroid injection. Patient can follow-up in the office to manage his hip arthritis once medical acute issues are resolved during this admission.
--- NOTE | 2017-03-19 19:50 | PDOC PROGRESS REPORT ---
Subjective Progress Note for:: 03/19/17 Subjective:: Patient seems to be doing better with significant improvement. Dyspnea is much improved. Pt is denying any chest arm or neck discomfort. Patient denying any PND, orthopnea. Patient denied any sustained palpitations, dizziness, syncope, near syncope. Patient denying any fever chills. Patient denying any other significant discomfort. Patient today complains of significant bilateral hip pain. Patient is maintaining sinus rhythm. Review of systems: Rest review of systems negative. Medications: Medications have been reviewed. Physical Exam Vital Signs: Temp Pulse Resp BP Pulse Ox 97.4 F 103 H 20 105/46 L 95 03/19/17 16:26 03/19/17 19:00 03/19/17 16:26 03/19/17 16:26 03/19/17 16:26 Intake & Output 03/18/17 03/19/17 03/20/17 06:59 06:59 06:59 Intake Total 1604 1760 1740 Balance 1604 1760 1740 Weight 54.7 kg 54.4 kg Exam: GENERAL: well-nourished and in no acute distress. Alert and oriented x3 HEAD: Atraumatic, normocephalic. EYES: Pupils equal round and reactive to light, extraocular movements intact, sclera anicteric, conjunctiva are normal. ENT: TMs normal, nares patent, oropharynx clear without exudates. Moist mucous membranes. No oral ulcerations or bleeding gums noted NECK: supple without lymphadenopathy. Trachea is central. No cervical or axillary lymphadenopathy noted. Carotids are 2+, JVD WNL LUNGS: Respiration seems nonlabored, no significant accessory muscle action noted. Bilateral wheezing noted. No dullness noted. CHEST: Palpation of the chest wall shows no significant chest wall tenderness. No other significant abnormalities noted. 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 ABDOMEN: Soft, no significant tenderness appreciated, normoactive bowel sounds. No guarding, no rebound. No rigidity noted . No masses appreciated. EXTREMITIES: Pedal pulses are 1-2+, no calf tenderness noted. No clubbing or cyanosis.trace to 1+ pedal edema noted NEUROLOGICAL: Focused neurological exam showed no significant neurologic deficit. Normal speech, no focal weakness appreciated. PSYCH: Normal mood, normal affect. Judgment and insight within normal limits. SKIN: No significant ecchymosis, rash, ulcerations or signs of pruritus noted. MUSCULOSKELETAL EXAM: No significant joint swelling noted. Bilateral hip pain noted Results Laboratory Results: 03/16/17 09:10 03/16/17 05:06 03/15/17 03/16/17 03/16/17 17:52 00:22 05:06 Troponin I 0.040 0.035 0.041 03/16/17 03/16/17 11:49 18:15 Troponin I 0.032 0.038 Impressions: Chest X-Ray 03/15/17 12:09 IMPRESSION: COPD. NO ACUTE RADIOGRAPHIC FINDING IN THE CHEST. Abdomen/Pelvis CT 03/16/17 15:25 IMPRESSION: No acute findings. 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 Chest CT 03/16/17 15:25 IMPRESSION: Extensive emphysema. No acute process. Hip/Pelvis X-Ray 03/18/17 00:00 IMPRESSION: Advanced joint space narrowing right hip with bony spurring. No fracture. Assessment & Plan - Diagnosis (1) Acute respiratory failure with hypoxia and hypercapnia Is this a current diagnosis for this admission?: Yes (2) CAD (coronary artery disease) Qualifiers: Coronary Disease-Associated Artery/Lesion type: unspecified vessel or lesion type Associated angina: angina presence unspecified Is this a current diagnosis for this admission?: Yes (3) COPD (chronic obstructive pulmonary disease) Qualifiers: COPD type: chronic bronchitis Chronic bronchitis type: simple Qualified Code(s): J41.0 - Simple chronic bronchitis Is this a current diagnosis for this admission?: Yes (4) Hyperlipidemia Qualifiers: Hyperlipidemia type: unspecified Qualified Code(s): E78.5 - Hyperlipidemia , unspecified Is this a current diagnosis for this admission?: Yes (5) Hypertension Qualifiers: Hypertension type: essential hypertension Qualified Code(s): I10 - Essential (primary) hypertension Is this a current diagnosis for this admission?: Yes (6) Protein-calorie malnutrition, severe Is this a current diagnosis for this admission?: Yes (7) Tobacco abuse Is this a current diagnosis for this admission?: Yes - Notes Notes: Acute respiratory failure: Most likely related to severe COPD with exacerbation. Chest x-ray shows no evidence of CHF. CT scan results reviewed. Patient dyspnea mostly related to COPD. It seems patient has severe emphysema and COPD. Coronary artery disease: Patient's has known CAD, and status post CABG in the past. Currently no significant EKG changes nor any significant chest discomfort. Currently stable as regards coronary artery disease. Patient seems to be on a stable regimen. COPD: Patient seems to have severe COPD along with emphysema. Currently on oxygen supplementation. Dyslipidemia: LDL goal should be less than 70. Statins at the preferred treatment. Hypertension: Blood pressure under reasonable control, however noted to be on the low side. JAY inhibitors and beta-blockers preferred but beta-blockers may be relatively contraindicated. Tobacco abuse: Patient has been advised to quit smoking. Patient has actually improved since he quit smoking in hospital. Weight loss along with protein calorie malnutrition: Patient's appetite has improved. Had a recent fall in the hospital, currently having some hip pain but that has improved. SHEENT has remained stable from cardiac standpoint for last several days. Therefore will sign off. Patient to follow-up with his primary care metal spinner. - Time Time with patient: 15-25 minutes - CODE STATUS : was discussed, patient remains DO NOT RESUSCITATE. Surrogate decision-maker unchanged. Multiple medical problems were addressed. More than 50% of the time spent coordinating care, discussing management plans with involved caregivers. Management plans discussed with involved personnels. Medical decision making was of moderate to high complexity, patient's has multiple comorbidities. Medications reviewed and adjusted accordingly: Yes
[2017-03-19] MEDS: ATORVASTATIN CALCIUM 40 MG TABLET PO SCH (22:05)
[2017-03-19] MEDS: MONTELUKAST SODIUM 10 MG TABLET PO SCH (22:05)
[2017-03-20] MEDS: OXYCODONE HCL IR 5 MG TABLET PO PRN ×2 (03:51→08:34)
[2017-03-20] MEDS: LEVALBUTEROL HCL NEB 0.63 MG/3 ML AMPUL NEB SCH ×5 (03:59→19:56)
--- NOTE | 2017-03-20 05:39 | PDOC PROGRESS REPORT ---
Subjective Progress Note for:: 03/18/17 Subjective:: Patient is a 86-year-old male who has advanced lung disease who continues to smoke and uses inhalers intermittently. Patient had a fall overnight while trying to get out of bed to go to the bathroom. Patient did not tell anyone. He is now complaining of right hip pain this morning. Patient states his very sore. He can feel it in his right buttock radiating down to his leg. It hurts to move. Physical Exam Vital Signs: Temp Pulse Resp BP Pulse Ox 98.8 F 87 18 152/74 H 99 03/18/17 21:00 03/18/17 21:00 03/18/17 21:00 03/18/17 21:00 03/18/17 21:00 Intake & Output 03/17/17 03/18/17 03/19/17 06:59 06:59 06:59 Intake Total 3165 1604 980 Output Total 200 Balance 2965 1604 980 Weight 53.07 kg 54.7 kg General appearance: PRESENT: mild distress, thin Head exam: PRESENT: atraumatic Eye exam: PRESENT: conjunctiva pink. ABSENT: scleral icterus Ear exam: PRESENT: normal external ear exam Mouth exam: PRESENT: moist Teeth exam: PRESENT: other - dentures in place Neck exam: ABSENT: carotid bruit, JVD, lymphadenopathy, thyromegaly Respiratory exam: PRESENT: clear to auscultation cortez, other - diffussely diminished. ABSENT: rales, rhonchi, wheezes Cardiovascular exam: PRESENT: RRR. ABSENT: diastolic murmur, rubs, systolic murmur GI/Abdominal exam: PRESENT: normal bowel sounds, soft. ABSENT: distended, guarding, mass, organolmegaly, rebound, tenderness Rectal exam: PRESENT: deferred Extremities exam: PRESENT: full ROM. ABSENT: calf tenderness, clubbing, pedal edema Neurological exam: PRESENT: alert, awake, oriented to person, oriented to place , oriented to time, oriented to situation, CN II-XII grossly intact. ABSENT: motor sensory deficit Psychiatric exam: PRESENT: agitated. ABSENT: homicidal ideation, suicidal ideation Skin exam: PRESENT: dry, intact, warm. ABSENT: cyanosis, rash Results Laboratory Results: 03/16/17 09:10 03/16/17 05:06 03/16/17 09:45 Sputum Gram Stain - Final 03/16/17 09:45 Sputum Sputum Culture - Final NORMAL BRODERICK 03/16/17 14:30 Clean Catch Midstream Urine Culture - Final Mixed Urogenital Broderick 03/15/17 03/16/17 03/16/17 17:52 00:22 05:06 Troponin I 0.040 0.035 0.041 03/16/17 03/16/17 11:49 18:15 Troponin I 0.032 0.038 Impressions: Chest X-Ray 03/15/17 12:09 IMPRESSION: COPD. NO ACUTE RADIOGRAPHIC FINDING IN THE CHEST. Abdomen/Pelvis CT 03/16/17 15:25 IMPRESSION: No acute findings. 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 Chest CT 03/16/17 15:25 IMPRESSION: Extensive emphysema. No acute process. Hip/Pelvis X-Ray 03/18/17 00:00 IMPRESSION: Advanced joint space narrowing right hip with bony spurring. No fracture. Assessment & Plan - Diagnosis (1) Acute respiratory failure with hypoxia and hypercapnia Is this a current diagnosis for this admission?: Yes Plan: Is slowly improving but stable on 2L NC. Patient on steroids and antibiotics along with breathing treatments. BiPAP at night as needed. Weaning steroids as patient is improving respiratory cordova. (2) CAD (coronary artery disease) Qualifiers: Coronary Disease-Associated Artery/Lesion type: unspecified vessel or lesion type Associated angina: angina presence unspecified Is this a current diagnosis for this admission?: Yes Plan: Continue beta alysa, aspirin and statin. No cardiac symptoms at present. No acute findings on echo. Cardiology following. Elevated troponin could be secondary to patient pulmonary status. (3) COPD (chronic obstructive pulmonary disease) Qualifiers: COPD type: chronic bronchitis Chronic bronchitis type: simple Qualified Code(s): J41.0 - Simple chronic bronchitis Is this a current diagnosis for this admission?: Yes Plan: Continue steroids antibiotics and nebs. Patient will benefit from smoking cessation however he continues to smoke. Currently weaning steroids. Will transition to oral in the am. (4) DVT prophylaxis Is this a current diagnosis for this admission?: Yes Plan: Continue heparin. (5) Elevated troponin Is this a current diagnosis for this admission?: Yes Plan: Most likely due to demand ischemia from patient's respiratory status. Patient denies chest pain. Cardiology following. Patient on aspirin, beta alysa. (6) Hyperlipidemia Qualifiers: Hyperlipidemia type: unspecified Qualified Code(s): E78.5 - Hyperlipidemia , unspecified Is this a current diagnosis for this admission?: Yes Plan: Continue on statin (7) Protein-calorie malnutrition, severe Is this a current diagnosis for this admission?: Yes Plan: Ensure with meals. CT of chest abdomen and pelvis has no obvious findings for malignancy. Patient weight loss may be due to his chronic lung disease and lack of large appetite since patient spends most of his time sitting in recliner at home. (8) Tobacco abuse Is this a current diagnosis for this admission?: Yes Plan: Counseled on cessation. Nicotine patch (9) Fall Is this a current diagnosis for this admission?: Yes Plan: Patient fell last night unwitnessed and got back up. X ray hip negative for fracture it does show OA. Family want more done. Explained to them that it may be bruised and will take a long time to feel better. Will attempt to management pain. Will consult ortho pedics to reassure them. Patient placed on fall precautions. PT/OT were already consulted. - Time Time Spent with patient: 35 or more minutes Anticipated discharge: Home with Homehealth Within: within 48 hours - Spent a lot of time talking with 2 daughters and . Seemed to asking the same questions if different ways. Made every effort to answer appropirately and completely.
--- NOTE | 2017-03-20 05:52 | PDOC PROGRESS REPORT ---
Subjective Progress Note for:: 03/19/17 Subjective:: Patient is a 86-year-old male who has advanced lung disease who continues to smoke and uses inhalers intermittently. Patient resting after given oxycodone for pain. Family at bedside and had several questions. Explained to them that he will need a doctor on discharge. Also expressed to them that he may benefit from rehab before returning home. The asked to speak to case management. Physical Exam Vital Signs: Temp Pulse Resp BP Pulse Ox 98.4 F 85 16 105/49 L 92 03/19/17 20:01 03/19/17 20:01 03/19/17 20:01 03/19/17 20:01 03/19/17 20:01 Intake & Output 03/18/17 03/19/17 03/20/17 06:59 06:59 06:59 Intake Total 1604 1760 1740 Balance 1604 1760 1740 Weight 54.7 kg 54.4 kg General appearance: PRESENT: no acute distress, thin Head exam: PRESENT: normocephalic Eye exam: ABSENT: scleral icterus Ear exam: PRESENT: normal external ear exam Mouth exam: PRESENT: moist, other - sleeping with mouth open Neck exam: ABSENT: tracheal deviation Respiratory exam: PRESENT: clear to auscultation cortez, decreased breath sounds. ABSENT: rales, rhonchi, wheezes Cardiovascular exam: PRESENT: RRR. ABSENT: diastolic murmur, rubs, systolic murmur GI/Abdominal exam: PRESENT: normal bowel sounds, soft. ABSENT: distended, guarding, mass, organolmegaly, rebound, tenderness Rectal exam: PRESENT: deferred Extremities exam: ABSENT: calf tenderness, clubbing, pedal edema Neurological exam: PRESENT: other - sleeping. ABSENT: motor sensory deficit Psychiatric exam: ABSENT: homicidal ideation, suicidal ideation Skin exam: PRESENT: dry, intact, warm. ABSENT: cyanosis, rash Results Laboratory Results: 03/16/17 09:10 03/16/17 05:06 03/15/17 03/16/17 03/16/17 17:52 00:22 05:06 Troponin I 0.040 0.035 0.041 03/16/17 03/16/17 11:49 18:15 Troponin I 0.032 0.038 Impressions: Chest X-Ray 03/15/17 12:09 IMPRESSION: COPD. NO ACUTE RADIOGRAPHIC FINDING IN THE CHEST. Abdomen/Pelvis CT 03/16/17 15:25 IMPRESSION: No acute findings. 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 Chest CT 03/16/17 15:25 IMPRESSION: Extensive emphysema. No acute process. Hip/Pelvis X-Ray 03/18/17 00:00 IMPRESSION: Advanced joint space narrowing right hip with bony spurring. No fracture. Assessment & Plan - Diagnosis (1) Fall Is this a current diagnosis for this admission?: Yes Plan: Patient fell 2 nights ago unwitnessed and got back up. Patient does not remember any details. X ray hip negative for fracture it does show extensive OA. Evaluated by orthopedics and there is nothing surgical to be done however pain needs to be managed. Patient placed on fall precautions. PT/OT were already consulted and plan in for rehab. Will have patient follow with ortho outpatient. (2) Acute respiratory failure with hypoxia and hypercapnia Is this a current diagnosis for this admission?: Yes Plan: Stable on 2L NC. BiPAP at night as needed. Explained to family that patient may benefit from night time oxygen at home although he refused. Patient has advance lung disease and have chronic hypoxia with hypercapnia. (3) CAD (coronary artery disease) Qualifiers: Coronary Disease-Associated Artery/Lesion type: unspecified vessel or lesion type Associated angina: angina presence unspecified Is this a current diagnosis for this admission?: Yes Plan: Continue beta alysa, aspirin and statin. No cardiac symptoms at present. No acute findings on echo. Cardiology following. Elevated troponin could be secondary to patient pulmonary status. No further intervention at this time. Also patient doesn't want anything aggressive. (4) COPD (chronic obstructive pulmonary disease) Qualifiers: COPD type: chronic bronchitis Chronic bronchitis type: simple Qualified Code(s): J41.0 - Simple chronic bronchitis Is this a current diagnosis for this admission?: Yes Plan: Continue steroids antibiotics and nebs. Patient will benefit from smoking cessation however he continues to smoke. Currently weaning steroids. Patient now on 40mg po prednsione. (5) DVT prophylaxis Is this a current diagnosis for this admission?: Yes Plan: Continue heparin. (6) Elevated troponin Is this a current diagnosis for this admission?: Yes Plan: Stable. Most likely due to demand ischemia from patient's respiratory status. Patient denies chest pain. Cardiology following. Patient on aspirin, beta alysa. (7) Hyperlipidemia Qualifiers: Hyperlipidemia type: unspecified Qualified Code(s): E78.5 - Hyperlipidemia , unspecified Is this a current diagnosis for this admission?: Yes Plan: Continue on statin (8) Protein-calorie malnutrition, severe Is this a current diagnosis for this admission?: Yes Plan: Ensure with meals. Encourage patient to eat. CT of chest abdomen and pelvis has no obvious findings for malignancy. Patient weight loss may be due to his chronic lung disease and lack of large appetite since patient spends most of his time sitting in recliner at home. (9) Tobacco abuse Is this a current diagnosis for this admission?: Yes Plan: Counseled on cessation. Nicotine patch - Time Time Spent with patient: 35 or more minutes Anticipated discharge: SNF Within: when bed available - Case managment working on looking for rehab for patient. Family decided on this today.
[2017-03-20] MEDS: HEPARIN SOD (PORCINE) 5,000 UNIT/ML 1 ML SYRINGE SUBCUT SCH ×3 (06:30→22:52)
[2017-03-20] MEDS: GABAPENTIN 100 MG CAPSULE PO SCH ×3 (06:34→22:49)
[2017-03-20] MEDS: LANSOPRAZOLE 30 MG TAB.RAP.DR PO SCH (06:34)
[2017-03-20] MEDS: LEVOFLOXACIN 250 MG TABLET PO SCH (10:56)
[2017-03-20] MEDS: METOPROLOL TARTRATE 50 MG TABLET PO SCH ×2 (10:56→22:52)
[2017-03-20] MEDS: ZINC OXIDE 20% OINTMENT 28.35 GM TP SCH ×2 (10:56→22:52)
[2017-03-20] MEDS: ASPIRIN 81 MG TABLET, ENT COATED PO SCH (10:56)
[2017-03-20] MEDS: MONTELUKAST SODIUM 10 MG TABLET PO SCH (22:47)
[2017-03-20] MEDS: ATORVASTATIN CALCIUM 40 MG TABLET PO SCH (22:48)
[2017-03-21] MEDS: LEVALBUTEROL HCL NEB 0.63 MG/3 ML AMPUL NEB SCH ×7 (00:02→23:56)
[2017-03-21] MEDS: HEPARIN SOD (PORCINE) 5,000 UNIT/ML 1 ML SYRINGE SUBCUT SCH ×3 (06:22→21:37)
[2017-03-21] MEDS: LANSOPRAZOLE 30 MG TAB.RAP.DR PO SCH (06:22)
[2017-03-21] MEDS: OXYCODONE HCL IR 5 MG TABLET PO PRN ×2 (06:22→17:48)
[2017-03-21] MEDS: GABAPENTIN 100 MG CAPSULE PO SCH ×3 (06:23→21:37)
[2017-03-21] MEDS: ASPIRIN 81 MG TABLET, ENT COATED PO SCH (10:40)
[2017-03-21] MEDS: METOPROLOL TARTRATE 50 MG TABLET PO SCH ×2 (10:40→21:37)
[2017-03-21] MEDS: LEVOFLOXACIN 250 MG TABLET PO SCH (10:40)
[2017-03-21] MEDS: ZINC OXIDE 20% OINTMENT 28.35 GM TP SCH ×2 (10:40→21:38)
[2017-03-21] MEDS: ATORVASTATIN CALCIUM 40 MG TABLET PO SCH (21:37)
[2017-03-21] MEDS: MONTELUKAST SODIUM 10 MG TABLET PO SCH (21:37)
[2017-03-22] MEDS: LEVALBUTEROL HCL NEB 0.63 MG/3 ML AMPUL NEB SCH ×4 (04:12→20:01)
--- NOTE | 2017-03-22 04:25 | PDOC PROGRESS REPORT ---
Subjective Progress Note for:: 03/20/17 Subjective:: Patient is a 86-year-old male who has advanced lung disease who continues to smoke and uses inhalers intermittently. Patient resting after given oxycodone for pain. Patient doing well today. is concerned about a tremor his has. He also has this tremor at home. Physical Exam Vital Signs: Temp Pulse Resp BP Pulse Ox 98.7 F 103 H 14 94/35 L 95 03/20/17 20:00 03/20/17 20:00 03/20/17 20:00 03/20/17 20:00 03/20/17 20:00 Intake & Output 03/19/17 03/20/17 03/21/17 06:59 06:59 06:59 Intake Total 1760 1890 1460 Output Total 400 Balance 1760 1490 1460 Weight 54.4 kg 52.9 kg General appearance: PRESENT: no acute distress, thin Head exam: PRESENT: normocephalic Eye exam: PRESENT: EOMI. ABSENT: scleral icterus Mouth exam: PRESENT: moist Neck exam: ABSENT: carotid bruit, JVD, lymphadenopathy, thyromegaly Respiratory exam: PRESENT: clear to auscultation cortez, decreased breath sounds, unlabored. ABSENT: rales, rhonchi, wheezes Cardiovascular exam: PRESENT: RRR. ABSENT: diastolic murmur, rubs, systolic murmur Pulses: PRESENT: normal dorsalis pedis pul Vascular exam: PRESENT: normal capillary refill GI/Abdominal exam: PRESENT: normal bowel sounds, soft. ABSENT: distended, guarding, mass, organolmegaly, rebound, tenderness Rectal exam: PRESENT: deferred Extremities exam: PRESENT: full ROM. ABSENT: calf tenderness, clubbing, pedal edema Neurological exam: PRESENT: alert, awake, oriented to person, oriented to place , oriented to time, oriented to situation, CN II-XII grossly intact. ABSENT: motor sensory deficit Psychiatric exam: PRESENT: appropriate affect, normal mood. ABSENT: homicidal ideation, suicidal ideation Skin exam: PRESENT: dry, intact, warm. ABSENT: cyanosis, rash Results Laboratory Results: 03/16/17 09:10 03/16/17 05:06 03/15/17 13:41 Blood Blood Culture - Final Corynebacterium Species 03/15/17 03/16/17 03/16/17 17:52 00:22 05:06 Troponin I 0.040 0.035 0.041 03/16/17 03/16/17 11:49 18:15 Troponin I 0.032 0.038 Impressions: Chest X-Ray 03/15/17 12:09 IMPRESSION: COPD. NO ACUTE RADIOGRAPHIC FINDING IN THE CHEST. Abdomen/Pelvis CT 03/16/17 15:25 IMPRESSION: No acute findings. 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 Chest CT 03/16/17 15:25 IMPRESSION: Extensive emphysema. No acute process. Hip/Pelvis X-Ray 03/18/17 00:00 IMPRESSION: Advanced joint space narrowing right hip with bony spurring. No fracture. Assessment & Plan - Diagnosis (1) Fall Is this a current diagnosis for this admission?: Yes Plan: Patient fell 2 nights ago unwitnessed and got back up. Patient does not remember any details. X ray hip negative for fracture it does show extensive OA. Evaluated by orthopedics. No surgical intervention needed. Patient better controlled with oxycodone. Patient placed on fall precautions. PT/OT were already consulted and plan in for rehab. Will have patient follow with ortho outpatient. (2) Acute respiratory failure with hypoxia and hypercapnia Is this a current diagnosis for this admission?: Yes Plan: Stable on 2L NC. BiPAP at night as needed. Explained to family that patient may benefit from night time oxygen at home although he initially refused. Patient has advance lung disease and have chronic hypoxia with hypercapnia. (3) CAD (coronary artery disease) Qualifiers: Coronary Disease-Associated Artery/Lesion type: unspecified vessel or lesion type Associated angina: angina presence unspecified Is this a current diagnosis for this admission?: Yes Plan: Stable. Continue beta alysa, aspirin and statin. No cardiac symptoms at present. No acute findings on echo. Cardiology following. Elevated troponin could be secondary to patient pulmonary status. No further intervention at this time. (4) COPD (chronic obstructive pulmonary disease) Qualifiers: COPD type: chronic bronchitis Chronic bronchitis type: simple Qualified Code(s): J41.0 - Simple chronic bronchitis Is this a current diagnosis for this admission?: Yes Plan: Continue steroids antibiotics and nebs. Patient will benefit from smoking cessation however he continues to smoke. Currently weaning steroids. Patient now on 40mg po prednisone. Will wean to 20mg po tomorrow. (5) DVT prophylaxis Is this a current diagnosis for this admission?: Yes Plan: Continue heparin. (6) Elevated troponin Is this a current diagnosis for this admission?: Yes Plan: Stable. Most likely due to demand ischemia from patient's respiratory status. Patient denies chest pain. Cardiology following. Patient on aspirin, beta alysa. (7) Hyperlipidemia Qualifiers: Hyperlipidemia type: unspecified Qualified Code(s): E78.5 - Hyperlipidemia , unspecified Is this a current diagnosis for this admission?: Yes Plan: Continue statin (8) Protein-calorie malnutrition, severe Is this a current diagnosis for this admission?: Yes Plan: Ensure with meals. Encourage patient to eat. CT of chest abdomen and pelvis has no obvious findings for malignancy. Patient weight loss may be due to his chronic lung. (9) Tobacco abuse Is this a current diagnosis for this admission?: Yes Plan: Counseled on cessation. Nicotine patch - Time Time Spent with patient: 15-24 minutes Anticipated discharge: SNF - SNF for rehab. Patient family looking into places.
--- NOTE | 2017-03-22 04:33 | PDOC PROGRESS REPORT ---
Subjective Progress Note for:: 03/21/17 Subjective:: Patient is a 86-year-old male who has advanced lung disease who continues to smoke and uses inhalers intermittently. Patient resting after given oxycodone for pain. Patient doing well today. Patient is having a good day. Awaiting rehab placement. Physical Exam Vital Signs: Temp Pulse Resp BP Pulse Ox 98.8 F 88 17 118/44 L 97 03/21/17 21:04 03/21/17 21:04 03/21/17 21:04 03/21/17 21:04 03/21/17 21:04 Intake & Output 03/20/17 03/21/17 03/22/17 06:59 06:59 06:59 Intake Total 1890 1480 880 Output Total 400 500 125 Balance 1490 980 755 Weight 52.9 kg 54.5 kg General appearance: PRESENT: no acute distress, thin Head exam: PRESENT: atraumatic, normocephalic Eye exam: PRESENT: conjunctiva pink, EOMI. ABSENT: scleral icterus Ear exam: PRESENT: normal external ear exam Mouth exam: PRESENT: moist Neck exam: ABSENT: carotid bruit, JVD, lymphadenopathy, thyromegaly Respiratory exam: PRESENT: clear to auscultation cortez, decreased breath sounds. ABSENT: rales, rhonchi, unlabored, wheezes Cardiovascular exam: PRESENT: RRR. ABSENT: diastolic murmur, rubs, systolic murmur Pulses: PRESENT: normal dorsalis pedis pul Vascular exam: PRESENT: normal capillary refill GI/Abdominal exam: PRESENT: normal bowel sounds, soft. ABSENT: distended, guarding, mass, organolmegaly, rebound, tenderness Rectal exam: PRESENT: deferred Extremities exam: PRESENT: full ROM. ABSENT: calf tenderness, clubbing, pedal edema Neurological exam: PRESENT: alert, awake, oriented to person, oriented to place , oriented to time, oriented to situation, CN II-XII grossly intact. ABSENT: motor sensory deficit Psychiatric exam: PRESENT: appropriate affect, normal mood. ABSENT: homicidal ideation, suicidal ideation Skin exam: PRESENT: dry, intact, warm. ABSENT: cyanosis, rash Results Laboratory Results: 03/16/17 09:10 03/16/17 05:06 03/15/17 03/16/17 03/16/17 17:52 00:22 05:06 Troponin I 0.040 0.035 0.041 03/16/17 03/16/17 11:49 18:15 Troponin I 0.032 0.038 Impressions: Chest X-Ray 03/15/17 12:09 IMPRESSION: COPD. NO ACUTE RADIOGRAPHIC FINDING IN THE CHEST. Abdomen/Pelvis CT 03/16/17 15:25 IMPRESSION: No acute findings. 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 Chest CT 03/16/17 15:25 IMPRESSION: Extensive emphysema. No acute process. Hip/Pelvis X-Ray 03/18/17 00:00 IMPRESSION: Advanced joint space narrowing right hip with bony spurring. No fracture. Assessment & Plan - Diagnosis (1) Fall Is this a current diagnosis for this admission?: Yes Plan: Patient fell 2 nights ago unwitnessed and got back up. Patient does not remember any details. X ray hip negative for fracture it does show extensive OA. Evaluated by orthopedics. No surgical intervention needed. Patient better controlled with oxycodone. Patient placed on fall precautions. Plan for discharge to rehab. Follow up ortho outpatient. (2) Acute respiratory failure with hypoxia and hypercapnia Is this a current diagnosis for this admission?: Yes Plan: Stable on 2L NC. BiPAP at night as needed. Explained to family that patient may benefit from night time oxygen at home although he initially refused. Patient has advance lung disease and have chronic hypoxia with hypercapnia. (3) CAD (coronary artery disease) Qualifiers: Coronary Disease-Associated Artery/Lesion type: unspecified vessel or lesion type Associated angina: angina presence unspecified Is this a current diagnosis for this admission?: Yes Plan: Stable. Continue beta alysa, aspirin and statin. No cardiac symptoms at present. No acute findings on echo. Cardiology following. Elevated troponin could be secondary to patient pulmonary status. No further intervention at this time. Decreased the dose of beta alysa as patient blood pressure are running on the lower side. (4) COPD (chronic obstructive pulmonary disease) Qualifiers: COPD type: chronic bronchitis Chronic bronchitis type: simple Qualified Code(s): J41.0 - Simple chronic bronchitis Is this a current diagnosis for this admission?: Yes Plan: Continue steroids antibiotics and nebs. Patient will benefit from smoking cessation however he continues to smoke. Weaned off steroids. (5) DVT prophylaxis Is this a current diagnosis for this admission?: Yes Plan: Continue heparin. (6) Elevated troponin Is this a current diagnosis for this admission?: Yes Plan: Stable. Most likely due to demand ischemia from patient's respiratory status. Patient denies chest pain. Cardiology following. Patient on aspirin, beta alysa. (7) Hyperlipidemia Qualifiers: Hyperlipidemia type: unspecified Qualified Code(s): E78.5 - Hyperlipidemia , unspecified Is this a current diagnosis for this admission?: Yes Plan: Continue statin (8) Protein-calorie malnutrition, severe Is this a current diagnosis for this admission?: Yes Plan: Ensure with meals. Encourage patient to eat. CT of chest abdomen and pelvis has no obvious findings for malignancy. Patient weight loss may be due to his chronic lung disease. (9) Tobacco abuse Is this a current diagnosis for this admission?: Yes Plan: Counseled on cessation. Nicotine patch - Time Time Spent with patient: 15-24 minutes Medications reviewed and adjusted accordingly: Yes Anticipated discharge: SNF Within: when bed available - Patient going to rehab. Case management following.
[2017-03-22] MEDS: HEPARIN SOD (PORCINE) 5,000 UNIT/ML 1 ML SYRINGE SUBCUT SCH ×2 (06:23→14:23)
[2017-03-22] MEDS: GABAPENTIN 100 MG CAPSULE PO SCH ×3 (06:23→22:02)
[2017-03-22] MEDS: LANSOPRAZOLE 30 MG TAB.RAP.DR PO SCH (06:23)
[2017-03-22] MEDS: OXYCODONE HCL IR 5 MG TABLET PO PRN (09:49)
[2017-03-22] MEDS: METOPROLOL TARTRATE 50 MG TABLET PO SCH ×2 (09:53→22:02)
[2017-03-22] MEDS: ZINC OXIDE 20% OINTMENT 28.35 GM TP SCH ×2 (09:53→22:02)
[2017-03-22] MEDS: ASPIRIN 81 MG TABLET, ENT COATED PO SCH (09:53)
[2017-03-22] MEDS ORDERED: NORMAL SALINE 1000 ML 1,000 ML IV PRN (14:20)
[2017-03-22] MEDS ORDERED: SENNOSIDES/DOCUSATE 8.6-50 MG 1 EACH TABLET PO ONE (15:00)
[2017-03-22] MEDS ORDERED: DOCUSATE SODIUM 100 MG CAPSULE PO ONE (15:00)
--- NOTE | 2017-03-22 15:46 | RADIOLOGY REPORT (SQ) ---
EXAM DESCRIPTION: CHEST SINGLE VIEW COMPLETED DATE/TIME: 03/22/2017 3:30 pm REASON FOR STUDY: gisella rhonchi COMPARISON: CT chest 03/16/2017 Chest films 03/15/2017, 07/27/2007 EXAM PARAMETERS: NUMBER OF VIEWS: One view. TECHNIQUE: Single frontal radiographic view of the chest acquired. RADIATION DOSE: NA LIMITATIONS: None. FINDINGS: LUNGS AND PLEURA: Increased interstitial markings pulmonary vascular congestion worrisome for fluid overload or congestive failure. No dense consolidation worrisome for pneumonia. No pleural effusions. No pneumothorax. MEDIASTINUM AND HILAR STRUCTURES: No masses. Contour normal. HEART AND VASCULAR STRUCTURES: No cardiomegaly. Old sternotomy for CABG. Calcified aortic arch. BONES: No acute findings. HARDWARE: None in the chest. OTHER: No other significant finding. IMPRESSION: Pulmonary vascular congestion with mild interstitial edema. TECHNICAL DOCUMENTATION: JOB ID: [id number]
--- NOTE | 2017-03-22 15:56 | RADIOLOGY REPORT (SQ) ---
EXAM DESCRIPTION: CT PELVIS WITHOUT COMPLETED DATE/TIME: 03/22/2017 3:18 pm REASON FOR STUDY: ? occult fx of left hip COMPARISON: CT abdomen pelvis 03/16/2017 TECHNIQUE: CT scan of the pelvis performed without intravenous or oral contrast. Images reviewed wi th soft tissue and bone windows. Reconstructed coronal and sagittal MPR images reviewed. All images stored on PACS. All CT scanners at this facility use dose modulation, iterative reconstruction, and/or weight based d osing when appropriate to reduce radiation dose to as low as reasonably achievable (ALARA). [facility]: Dose Right [facility]: CareDose [facility]: Dose Right [facility]: Teradose 4D [facility]: [employer] RADIATION DOSE: Up-to-date CT equipment and radiation dose reduction techniques were employed. CTDIv ol: 12.2 mGy. DLP: 473 mGy-cm. mGy. LIMITATIONS: None. FINDINGS: A moderate size retroperitoneal hematoma is present on the right, extending from the upper edge of the field of view at the L3 level down along the iliacus muscle into the pelvis. This measu res about 15 cm craniocaudad by 8 cm transverse by 4 cm AP, and is best shown on the axial images 1-4 8. This report was called to Dr. Harris PELVIC BONES: No acute fracture. No worrisome bone lesions. VISUALIZED SPINE: No acute findings. HIPS: No acute fracture or dislocation. Advanced joint space narrowing is present bilaterally. PELVIC SOFT TISSUES: As above. No free pelvic fluid. Bladder unremarkable. Oral contrast in the di stal colon. Heavily calcified aorta and iliac vessels. EXTRAPELVIC SOFT TISSUES: No significant findings. OTHER: No other significant finding. IMPRESSION: Right-sided retroperitoneal acute hematoma, incompletely included in the field of view, this may extend superiorly in the retroperitoneum up around the right kidney or liver. Findings call ed as a critical result to the attending physician, 1545 hours 03/22/2017 TECHNICAL DOCUMENTATION: JOB ID: [id number] Quality ID # [id number]: Final reports with documentation of one or more dose reduction techniques (e.g., Au tomated exposure control, adjustment of the mA and/or kV according to patient size, use of iterative reconstruction technique) 2010 [employer]- All Rights Reserved
--- NOTE | 2017-03-22 16:16 | PDOC PROGRESS REPORT ---
Subjective Progress Note for:: 03/22/17 Subjective:: Patient seen earlier today on morning rounds with and [id number] at bedside. Patient complains of left hip pain. reports that his appetite has been poor. Patient has constipation. Patient does have some abdominal pain. Patient denies chest pain, shortness of breath, nausea, vomiting, fevers, chills , diarrhea, headache, new onset weakness. Physical Exam Vital Signs: Temp Pulse Resp BP Pulse Ox 98.5 F 123 H 14 106/40 L 91 L 03/22/17 07:12 03/22/17 14:00 03/22/17 12:13 03/22/17 07:12 03/22/17 08:34 Intake & Output 03/21/17 03/22/17 03/23/17 06:59 06:59 06:59 Intake Total 1480 1190 Output Total 500 375 Balance 980 815 Weight 54.5 kg 54.5 kg Exam: General: Awake alert and oriented x3, mild respiratory distress, mild tachypnea HEENT: AT/NC, PERRL, EOMI, oropharynx is dry, pink, no scleral icterus, no conjunctival injection Neck: No JVD, trachea midline Chest: Prolonged expiratory phase, Rhonchi BOYD CV: Regular rate and rhythm, normal S1 and S2, no rub or gallop Abdomen: Firm, tender to palpation RUQ, nondistended, hypoactive bowel sounds; no rebound; voluntary guarding Extremities: No cyanosis, clubbing or edema Neuro: Cranial nerves II through XII are grossly intact without focal deficits; awake alert and oriented x3 Psych: Normal mood and affect Results Laboratory Results: 03/16/17 09:10 03/16/17 05:06 03/15/17 03/16/17 03/16/17 17:52 00:22 05:06 Troponin I 0.040 0.035 0.041 03/16/17 03/16/17 11:49 18:15 Troponin I 0.032 0.038 Impressions: Abdomen/Pelvis CT 03/16/17 15:25 IMPRESSION: No acute findings. 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 Chest CT 03/16/17 15:25 IMPRESSION: Extensive emphysema. No acute process. Hip/Pelvis X-Ray 03/18/17 00:00 IMPRESSION: Advanced joint space narrowing right hip with bony spurring. No fracture. Chest X-Ray 03/22/17 00:00 IMPRESSION: Pulmonary vascular congestion with mild interstitial edema. Pelvis CT 03/22/17 00:00 IMPRESSION: Right-sided retroperitoneal acute hematoma, incompletely included in the field of view, this may extend superiorly in the retroperitoneum up around the right kidney or liver. Findings called as a critical result to the attending physician, 1545 hours 03/22/2017 Assessment & Plan - Diagnosis (1) Traumatic retroperitoneal hematoma Qualifiers: Encounter type: subsequent encounter Qualified Code(s): S36.892D - Contusion of other intra-abdominal organs, subsequent encounter Is this a current diagnosis for this admission?: Yes Plan: Patient fell in the hospital on the night of 03/17/17. Have repeated patient's CT of the pelvis for possible occult hip fracture in light of his severe osteoarthritis ongoing pain and abdominal pain. Patient found to have a retroperitoneal hematoma. Repeat CT with IV contrast. Type and screen. Place patient on IV fluids. Repeat BMP, CBC, PT, INR, PTT. Hold all anticoagulation including aspirin. (2) Acute respiratory failure with hypoxia and hypercapnia Is this a current diagnosis for this admission?: Yes Plan: Continue oxygen and BiPAP as needed (3) CAD (coronary artery disease) Qualifiers: Coronary Disease-Associated Artery/Lesion type: unspecified vessel or lesion type Associated angina: angina presence unspecified Is this a current diagnosis for this admission?: Yes Plan: Generic Name Dose Route Start Last Admin Trade Name Freq PRN Reason Stop Dose Admin Atorvastatin Calcium 40 mg 03/16/17 22:00 03/21/17 21:37 Lipitor 40 Mg Tablet PO 04/15/17 21:59 40 mg QHS GILBERTO Metoprolol Tartrate 25 mg 03/21/17 22:13 03/22/17 09:53 Lopressor 50 Mg Tablet PO 04/20/17 22:12 Not Given Q12 GILBERTO (4) COPD (chronic obstructive pulmonary disease) Qualifiers: COPD type: chronic bronchitis Chronic bronchitis type: simple Qualified Code(s): J41.0 - Simple chronic bronchitis Is this a current diagnosis for this admission?: Yes Plan: At this time, patient is not on a steroid. We will hold this. We will repeat his chest x-ray looking for possible pneumonia as he does have some rhonchi in the left upper lobe. (5) Elevated troponin Is this a current diagnosis for this admission?: Yes Plan: Likely related to demand ischemia (6) Fall Qualifiers: Encounter type: subsequent encounter Qualified Code(s): W19.XXXD - Unspecified fall, subsequent encounter Is this a current diagnosis for this admission?: Yes Plan: Patient fell approximately 5 days ago. Will follow labs. (7) Hip osteoarthritis Qualifiers: Osteoarthritis type: primary Laterality: right Qualified Code(s): M16.11 - Unilateral primary osteoarthritis, right hip Is this a current diagnosis for this admission?: Yes Plan: Patient was seen by orthopedic surgery. It did follow up with them and they recommended if patient has had ongoing pain to consider an intra-articular injection via CT with IR. At this time due to hematoma. We will hold any intervention. (8) Hyperlipidemia Qualifiers: Hyperlipidemia type: unspecified Qualified Code(s): E78.5 - Hyperlipidemia , unspecified Is this a current diagnosis for this admission?: Yes Plan: Continue statin (9) Hypertension Qualifiers: Hypertension type: essential hypertension Qualified Code(s): I10 - Essential (primary) hypertension Is this a current diagnosis for this admission?: Yes Plan: Patient is actually mildly hypotensive. Will place patient on IV fluids and anticipate the need to give this patient blood. (10) Protein-calorie malnutrition, severe Is this a current diagnosis for this admission?: Yes Plan: Continue Ensure supplementation. Appreciate dietary input. (11) Tobacco abuse Is this a current diagnosis for this admission?: Yes (12) Hematuria Qualifiers: Hematuria type: gross Qualified Code(s): R31.0 - Gross hematuria Is this a current diagnosis for this admission?: Yes Plan: shows me his underwear which does have small red droplets on them. Will obtain UA and culture. Concern for pelvic fracture in light of recent fall. Pending repeat CT. - Time Time Spent with patient: 35 or more minutes Medications reviewed and adjusted accordingly: Yes Anticipated discharge: Acute Rehab
[2017-03-22] MEDS ORDERED: NYSTATIN CREAM 15 GM TP ONE (16:30)
[2017-03-22 16:39] LABS: PROTHROMBIN TIME 14.2 SEC (11.4-15.4)
[2017-03-22 16:41] LABS: PARTIAL THROMBOPLASTIN TIME 75.6 SEC (23.5-35.8)
[2017-03-22 16:47] LABS: ANION GAP 7 (5-19); BLOOD UREA NITROGEN 32 mg/dL (7-20); CALCIUM 8.3 mg/dL (8.4-10.2); CARBON DIOXIDE 35 mmol/L (22-30); CHLORIDE 96 mmol/L (98-107); CREATININE RESULT 0.78 mg/dL (0.52-1.25); GLUCOSE 152 mg/dL (75-110); POTASSIUM 4.2 mmol/L (3.6-5.0); SODIUM 137.6 mmol/L (137-145)
[2017-03-22 17:20] LABS: HEMATOCRIT 20.8 % (37.9-51.0); HGB HCT DIFFERENCE 0.2; MEAN CORPUSCULAR HEMOGLOBIN 31.1 pg (27.0-33.4); MEAN CORPUSCULAR HGB CONC 33.6 g/dL (32.0-36.0); MEAN CORPUSCULAR VOLUME 92 fl (80-97); RED BLOOD COUNT 2.25 10^6/uL (4.35-5.55); WHITE BLOOD COUNT 16.1 10^3/uL (4.0-10.5)
[2017-03-22 17:35] LABS: BAND NEUTROPHILS % (MANUAL) 2 % (3-5); BASOPHILS % (MANUAL) 0 % (0-2); EOSINOPHILS % (MANUAL) 0 % (0-6); LYMPHOCYTES % (MANUAL) 4 % (13-45); TOTAL CELLS COUNTED 100
[2017-03-22 17:37] LABS: HYPOCHROMASIA SLIGHT; PLATELET CLUMPS PRESENT
[2017-03-22] MEDS ORDERED: NORMAL SALINE 250 ML IV PRN (17:50)
--- NOTE | 2017-03-22 17:50 | PDOC PROGRESS REPORT ---
Subjective Progress Note for:: 03/22/17 Subjective:: pt denies any abdominal pain Physical Exam Vital Signs: Temp Pulse Resp BP Pulse Ox 98.5 F 123 H 14 106/40 L 91 L 03/22/17 07:12 03/22/17 14:00 03/22/17 12:13 03/22/17 07:12 03/22/17 08:34 Intake & Output 03/21/17 03/22/17 03/23/17 06:59 06:59 06:59 Intake Total 1480 1190 Output Total 500 375 Balance 980 815 Weight 54.5 kg 54.5 kg GI/Abdominal exam: PRESENT: other - soft abdomen, no distention non tender Results Laboratory Results: 03/22/17 17:13 03/22/17 16:15 03/22/17 03/22/17 03/22/17 16:15 16:15 16:15 WBC Cancelled RBC Cancelled Hgb Cancelled Hct Cancelled MCV Cancelled MCH Cancelled MCHC Cancelled RDW Cancelled Plt Count Cancelled Seg Neutrophils % Cancelled Lymphocytes % Cancelled Monocytes % Cancelled Eosinophils % Cancelled Basophils % Cancelled Absolute Neutrophils Cancelled Absolute Lymphocytes Cancelled Absolute Monocytes Cancelled Absolute Eosinophils Cancelled Absolute Basophils Cancelled Sodium 137.6 Potassium 4.2 Chloride 96 L Carbon Dioxide 35 H Anion Gap 7 BUN 32 H Creatinine 0.78 Est GFR ( Amer) > 60 Est GFR (Non-Af Amer) > 60 Glucose 152 H Calcium 8.3 L Blood Type A NEGATIVE Antibody Screen NEGATIVE 03/22/17 17:13 WBC 16.1 H RBC 2.25 L Hgb 7.0 L Hct 20.8 L MCV 92 MCH 31.1 MCHC 33.6 RDW 14.0 Plt Count 128 L Seg Neutrophils % Not Reportable Lymphocytes % Not Reportable Monocytes % Not Reportable Eosinophils % Not Reportable Basophils % Not Reportable Absolute Neutrophils Not Reportable Absolute Lymphocytes Not Reportable Absolute Monocytes Not Reportable Absolute Eosinophils Not Reportable Absolute Basophils Not Reportable Sodium Potassium Chloride Carbon Dioxide Anion Gap BUN Creatinine Est GFR ( Amer) Est GFR (Non-Af Amer) Glucose Calcium Blood Type Antibody Screen 03/15/17 03/16/17 03/16/17 17:52 00:22 05:06 Troponin I 0.040 0.035 0.041 03/16/17 03/16/17 11:49 18:15 Troponin I 0.032 0.038 Impressions: Abdomen/Pelvis CT 03/16/17 15:25 IMPRESSION: No acute findings. 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 Chest CT 03/16/17 15:25 IMPRESSION: Extensive emphysema. No acute process. Hip/Pelvis X-Ray 03/18/17 00:00 IMPRESSION: Advanced joint space narrowing right hip with bony spurring. No fracture. Chest X-Ray 03/22/17 00:00 IMPRESSION: Pulmonary vascular congestion with mild interstitial edema. Pelvis CT 03/22/17 00:00 IMPRESSION: Right-sided retroperitoneal acute hematoma, incompletely included in the field of view, this may extend superiorly in the retroperitoneum up around the right kidney or liver. Findings called as a critical result to the attending physician, 1545 hours 03/22/2017 Assessment & Plan - Plan Summary Plan Summary: Spontaneous retroperitoneal hematomam plan PRBC transfusion Surgery is not an option dc anticoagulants d/w pt and Hospitalist
[2017-03-22] MEDS: DOCUSATE SODIUM 100 MG CAPSULE PO SCH (18:19)
--- NOTE | 2017-03-22 18:58 | RADIOLOGY REPORT (SQ) ---
EXAM DESCRIPTION: CT ABDOMEN IV CONTRAST ONLY COMPLETED DATE/TIME: 03/22/2017 6:02 pm REASON FOR STUDY: ?liver lac COMPARISON: 03/16/2017 TECHNIQUE: CT scan of the abdomen performed with intravenous and without oral contrast using helical scanning technique with dynamic intravenous contrast injection. Images reviewed with lung, soft tiss ue, and bone windows. Reconstructed coronal and sagittal MPR images reviewed. Delayed images for eval uation of the urinary system also acquired and evaluated. All images stored on PACS. All CT scanners at this facility use dose modulation, iterative reconstruc tion, and/or weight based dosing when appropriate to reduce radiation dose to as low as reasonably ac hievable (ALARA). [facility]: Dose Right [facility]: CareDose [facility]: Dose Right [facility]: Teradose 4D [facility]: [email or web address] CONTRAST TYPE AND DOSE: contrast/concentration: Isovue 370.00 mg/ml; Total Contrast Delivered: 58.0 ml; Total Saline Delivered: 65.0 ml RENAL FUNCTION: GFR > 60. RADIATION DOSE: Up-to-date CT equipment and radiation dose reduction techniques were employed. CTDIv ol: 8.4 - 11.6 mGy. DLP: 958 mGy-cm. . LIMITATIONS: None. FINDINGS: LOWER CHEST: Moderate bilateral pleural effusions and lower lobe airspace disease. LIVER: Normal size. No masses. No dilated ducts. SPLEEN: Normal size. No focal lesions. PANCREAS: No masses. No significant calcifications. Pancreatic duct not dilated. GALLBLADDER: No identified stones by CT criteria. ADRENAL GLANDS: No significant masses or asymmetry. RIGHT KIDNEY AND URETER: Parenchymal cysts No significant calcifications. No hydronephrosis or hyd roureter. LEFT KIDNEY AND URETER: Parenchymal cysts. No significant calcifications. No hydronephrosis or hyd roureter. AORTA AND VESSELS: No aneurysm. No dissection. Renal arteries, SMA, celiac are patent. RETROPERITONEUM: Large right retroperitoneal mixed density hematoma extending from the inferior aspec t of the ileus psoas muscle to the level of the right kidney, this measures 19 cm in craniocaudad dim ension by 10 cm transversely by 8 cm thickness. BOWEL AND PERITONEAL CAVITY: No obstruction. Trace free fluid. APPENDIX: Not visualized. ABDOMINAL WALL: No masses. No hernias. BONES: No acute findings. OTHER: No other significant finding. IMPRESSION: Large right retroperitoneal mixed density hematoma extending from the inferior aspect of the ileus psoas muscle to the level of the right kidney, this measures 19 cm in craniocaudad dimensi on by 10 cm transversely by 8 cm thickness. Moderate bilateral pleural effusions and lower lobe airspace disease. TECHNICAL DOCUMENTATION: JOB ID: [id number] Quality ID # [id number]: Final reports with documentation of one or more dose reduction techniques (e.g., Au tomated exposure control, adjustment of the mA and/or kV according to patient size, use of iterative reconstruction technique) 2010 [employer]- All Rights Reserved
[2017-03-22] MEDS ORDERED: FUROSEMIDE INJ/PF 20 MG/2 ML SDV IV PRN (19:07)
[2017-03-22] MEDS ORDERED: PHYTONADIONE INJ 10 MG/1 ML AMPULE SUBCUT ONE (19:09)
[2017-03-22 21:05] LABS: APPEARANCE,URINE CLEAR; BILIRUBIN,URINE NEGATIVE (NEGATIVE); GLUCOSE, URINE NEGATIVE (NEGATIVE); KETONES,URINE NEGATIVE (NEGATIVE); LEUKOCYTE ESTERASE,URINE NEGATIVE (NEGATIVE); NITRITE,URINE NEGATIVE (NEGATIVE); PROTEIN,URINE 30 mg/dL (NEGATIVE); URINE SPECIFIC GRAVITY 1.043
--- NOTE | 2017-03-22 21:33 | CONSULTATION REPORT E ---
Consultation Report NAME: ARACELI PICKETT : 1930 AGE: 86Y DATE: 03/22/2017 527 A TO: ZENA FLANNERY M.D. FROM: KATHERIN RAMEY M.D. Requesting Physician HISTORY OF PRESENT ILLNESS: Consultation called in today by hospitalist for evaluation and management of possible retroperitoneal hematoma. The patient has been admitted to the hospital with history of shortness of breath. The patient has history of COPD with and was admitted to the hospital from that time. There was complaint of fatigue and also hip pain. He had an abdominal CT scan, which shows vascular disease all over but no acute problem. The patient has pelvic pain. He had a CT scan, which revealed acute peritoneal hematoma. Past medical problems are pretty significant for history of severe COPD. PHYSICAL EXAMINATION: GENERAL: This is an elderly gentleman who is a COPD patient who has been on oxygen, but not in any distress. Currently afebrile. HEAD AND NECK: Examination no lymphadenopathy, no masses. RESPIRATORY: Good air entry, but wheeze present. ABDOMINAL: Soft, flat abdomen, no distention, nontender. He does deny any pain in the abdomen/pelvic area at this point. EXTREMITIES: Warm and perfused. DIAGNOSTIC STUDIES: The pelvic CT scan done today revealed moderate retroperitoneal hematoma IMPRESSION: The patient denies any problem. No abdominal pain. spontaneous retroperitoneal hematoma. The patient has a pretty significant medical problem. Also retroperitoneal hematoma does not need to be drained and he needs conservative management. Very poor risk for any surgical intervention. But in any case, a triple hematoma itself should not be drained in case it gets tamponaded and starts bleeding. PLAN: Supportive care, transfusions as needed and then stop the blood thinners. Same thing I discussed with the patient and also primary care hospitalist team. DICTATING PHYSICIAN: ZENA FLANNERY M.D. [id number] PHY#: [id number] ID: [id number] JOB#: [id number] ACCT: [id number] cc:ZENA FLANNERY M.D. > [facility]
[2017-03-22] MEDS ORDERED: SENNOSIDES/DOCUSATE 8.6-50 MG 1 EACH TABLET PO SCH (22:00)
[2017-03-22] MEDS: MONTELUKAST SODIUM 10 MG TABLET PO SCH (22:02)
[2017-03-22] MEDS: ATORVASTATIN CALCIUM 40 MG TABLET PO SCH (22:02)
[2017-03-22] MEDS: NYSTATIN CREAM 15 GM TP SCH (22:02)
[2017-03-22] MEDS: SENNOSIDES/DOCUSATE 8.6-50 MG 1 EACH TABLET PO SCH (22:02)
[2017-03-23] MEDS: LEVALBUTEROL HCL NEB 0.63 MG/3 ML AMPUL NEB SCH ×4 (01:58→19:37)
[2017-03-23] MEDS: OXYCODONE HCL IR 5 MG TABLET PO PRN ×2 (03:07→18:51)
[2017-03-23] MEDS: LANSOPRAZOLE 30 MG TAB.RAP.DR PO SCH (05:41)
[2017-03-23] MEDS: GABAPENTIN 100 MG CAPSULE PO SCH ×3 (05:41→21:54)
[2017-03-23 08:19] LABS: HEMATOCRIT 31.2 % (37.9-51.0); HGB HCT DIFFERENCE 0.6; MEAN CORPUSCULAR HEMOGLOBIN 30.8 pg (27.0-33.4); MEAN CORPUSCULAR HGB CONC 34.1 g/dL (32.0-36.0); MEAN CORPUSCULAR VOLUME 90 fl (80-97); RED BLOOD COUNT 3.45 10^6/uL (4.35-5.55); WHITE BLOOD COUNT 16.4 10^3/uL (4.0-10.5)
[2017-03-23 08:21] LABS: HEMOGLOBIN 10.6 g/dL (13.5-17.0)
[2017-03-23] MEDS: METOPROLOL TARTRATE 50 MG TABLET PO SCH (10:15)
[2017-03-23] MEDS: MEGESTROL ACETATE SUSP 400 MG/10 ML UDCUP PO SCH (10:15)
[2017-03-23] MEDS: DOCUSATE SODIUM 100 MG CAPSULE PO SCH ×2 (10:15→18:51)
[2017-03-23] MEDS: NYSTATIN CREAM 15 GM TP SCH ×2 (10:16→21:55)
[2017-03-23] MEDS: ZINC OXIDE 20% OINTMENT 28.35 GM TP SCH ×2 (10:16→21:55)
[2017-03-23] MEDS: NORMAL SALINE 1000 ML 1,000 ML IV PRN ×2 (11:53→18:56)
[2017-03-23 13:11] LABS: ANION GAP 7 (5-19); BLOOD UREA NITROGEN 23 mg/dL (7-20); CALCIUM 7.9 mg/dL (8.4-10.2); CARBON DIOXIDE 33 mmol/L (22-30); CHLORIDE 97 mmol/L (98-107); CREATININE RESULT 0.55 mg/dL (0.52-1.25); GLUCOSE 142 mg/dL (75-110); POTASSIUM 3.7 mmol/L (3.6-5.0)
--- NOTE | 2017-03-23 14:02 | PDOC PROGRESS REPORT ---
Subjective Progress Note for:: 03/23/17 Subjective:: Pt essentially obtunded. Physical Exam Vital Signs: Temp Pulse Resp BP Pulse Ox 98.0 F 74 22 H 119/45 L 96 03/23/17 11:19 03/23/17 11:19 03/23/17 11:19 03/23/17 11:19 03/23/17 11:19 Intake & Output 03/22/17 03/23/17 03/24/17 06:59 06:59 06:59 Intake Total 1190 3702 Output Total 375 400 Balance 815 3302 Weight 54.5 kg 54.5 kg GI/Abdominal exam: PRESENT: other - no abdominal distension Results Laboratory Results: 03/23/17 07:54 03/23/17 12:27 03/22/17 03/22/17 03/22/17 16:15 16:15 16:15 WBC Cancelled RBC Cancelled Hgb Cancelled Hct Cancelled MCV Cancelled MCH Cancelled MCHC Cancelled RDW Cancelled Plt Count Cancelled Seg Neutrophils % Cancelled Lymphocytes % Cancelled Monocytes % Cancelled Eosinophils % Cancelled Basophils % Cancelled Absolute Neutrophils Cancelled Absolute Lymphocytes Cancelled Absolute Monocytes Cancelled Absolute Eosinophils Cancelled Absolute Basophils Cancelled Sodium 137.6 Potassium 4.2 Chloride 96 L Carbon Dioxide 35 H Anion Gap 7 BUN 32 H Creatinine 0.78 Est GFR ( Amer) > 60 Est GFR (Non-Af Amer) > 60 Glucose 152 H Calcium 8.3 L Urine Color Urine Appearance Urine pH Ur Specific Thompson Urine Protein Urine Glucose (UA) Urine Ketones Urine Blood Urine Nitrite Ur Leukocyte Esterase Urine WBC (Auto) Urine RBC (Auto) Blood Type A NEGATIVE Antibody Screen NEGATIVE 03/22/17 03/22/17 03/23/17 17:13 20:15 07:54 WBC 16.1 H 16.4 H RBC 2.25 L 3.45 L Hgb 7.0 L 10.6 L D Hct 20.8 L 31.2 L MCV 92 90 MCH 31.1 30.8 MCHC 33.6 34.1 RDW 14.0 15.0 H Plt Count 128 L 179 Seg Neutrophils % Not Reportable Lymphocytes % Not Reportable Monocytes % Not Reportable Eosinophils % Not Reportable Basophils % Not Reportable Absolute Neutrophils Not Reportable Absolute Lymphocytes Not Reportable Absolute Monocytes Not Reportable Absolute Eosinophils Not Reportable Absolute Basophils Not Reportable Sodium Potassium Chloride Carbon Dioxide Anion Gap BUN Creatinine Est GFR ( Amer) Est GFR (Non-Af Amer) Glucose Calcium Urine Color YELLOW Urine Appearance CLEAR Urine pH 7.0 Ur Specific Thompson 1.043 Urine Protein 30 H Urine Glucose (UA) NEGATIVE Urine Ketones NEGATIVE Urine Blood SMALL H Urine Nitrite NEGATIVE Ur Leukocyte Esterase NEGATIVE Urine WBC (Auto) 1 Urine RBC (Auto) 2 Blood Type Antibody Screen 03/23/17 12:27 WBC RBC Hgb Hct MCV MCH MCHC RDW Plt Count Seg Neutrophils % Lymphocytes % Monocytes % Eosinophils % Basophils % Absolute Neutrophils Absolute Lymphocytes Absolute Monocytes Absolute Eosinophils Absolute Basophils Sodium 137.0 Potassium 3.7 Chloride 97 L Carbon Dioxide 33 H Anion Gap 7 BUN 23 H Creatinine 0.55 Est GFR ( Amer) > 60 Est GFR (Non-Af Amer) > 60 Glucose 142 H Calcium 7.9 L Urine Color Urine Appearance Urine pH Ur Specific Thompson Urine Protein Urine Glucose (UA) Urine Ketones Urine Blood Urine Nitrite Ur Leukocyte Esterase Urine WBC (Auto) Urine RBC (Auto) Blood Type Antibody Screen 03/15/17 03/16/17 03/16/17 17:52 00:22 05:06 Troponin I 0.040 0.035 0.041 03/16/17 03/16/17 11:49 18:15 Troponin I 0.032 0.038 Impressions: Abdomen/Pelvis CT 03/16/17 15:25 IMPRESSION: No acute findings. 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 Chest CT 03/16/17 15:25 IMPRESSION: Extensive emphysema. No acute process. Hip/Pelvis X-Ray 03/18/17 00:00 IMPRESSION: Advanced joint space narrowing right hip with bony spurring. No fracture. Abdomen CT 03/22/17 00:00 IMPRESSION: Large right retroperitoneal mixed density hematoma extending from the inferior aspect of the ileus psoas muscle to the level of the right kidney, this measures 19 cm in craniocaudad dimension by 10 cm transversely by 8 cm thickness. Moderate bilateral pleural effusions and lower lobe airspace disease. Chest X-Ray 03/22/17 00:00 IMPRESSION: Pulmonary vascular congestion with mild interstitial edema. Pelvis CT 03/22/17 00:00 IMPRESSION: Right-sided retroperitoneal acute hematoma, incompletely included in the field of view, this may extend superiorly in the retroperitoneum up around the right kidney or liver. Findings called as a critical result to the attending physician, 1545 hours 03/22/2017 Assessment & Plan - Diagnosis (1) Traumatic retroperitoneal hematoma Qualifiers: Encounter type: subsequent encounter Qualified Code(s): S36.892D - Contusion of other intra-abdominal organs, subsequent encounter Is this a current diagnosis for this admission?: Yes Plan: S/P fall, Retroperitoenal hematoma, HD stable after 2 u RBC Tx PLAN: 1. Supportive Tx; no role for surgery at this time 2. Will Sign off ; call again if needed
--- NOTE | 2017-03-23 17:16 | PDOC PROGRESS REPORT ---
Subjective Progress Note for:: 03/23/17 Subjective:: Patient seen earlier today on morning rounds. Patient was essentially obtunded when I saw him. He was sleeping soundly and only localized to noxious stimuli Physical Exam Vital Signs: Temp Pulse Resp BP Pulse Ox 98.3 F 84 22 H 118/48 L 96 03/23/17 16:18 03/23/17 16:18 03/23/17 16:18 03/23/17 16:18 03/23/17 16:18 Intake & Output 03/22/17 03/23/17 03/24/17 06:59 06:59 06:59 Intake Total 1190 3702 500 Output Total 375 400 Balance 815 3302 500 Weight 54.5 kg 54.5 kg Exam: General: Essentially obtunded, mild respiratory distress, mild tachypnea HEENT: AT/NC, PERRL, EOMI, oropharynx is dry, pink, no scleral icterus, no conjunctival injection Neck: No JVD, trachea midline Chest: Prolonged expiratory phase, Rhonchi BOYD CV: Regular rate and rhythm, normal S1 and S2, no rub or gallop Abdomen: Soft, mild tender to palpation RUQ, nondistended, hypoactive bowel sounds; no rebound Extremities: No cyanosis, clubbing or edema Results Laboratory Results: 03/23/17 07:54 03/23/17 12:27 03/22/17 03/22/17 03/22/17 16:15 17:13 20:15 WBC 16.1 H RBC 2.25 L Hgb 7.0 L Hct 20.8 L MCV 92 MCH 31.1 MCHC 33.6 RDW 14.0 Plt Count 128 L Seg Neutrophils % Not Reportable Lymphocytes % Not Reportable Monocytes % Not Reportable Eosinophils % Not Reportable Basophils % Not Reportable Absolute Neutrophils Not Reportable Absolute Lymphocytes Not Reportable Absolute Monocytes Not Reportable Absolute Eosinophils Not Reportable Absolute Basophils Not Reportable Sodium Potassium Chloride Carbon Dioxide Anion Gap BUN Creatinine Est GFR ( Amer) Est GFR (Non-Af Amer) Glucose Calcium Urine Color YELLOW Urine Appearance CLEAR Urine pH 7.0 Ur Specific [place] 1.043 Urine Protein 30 H Urine Glucose (UA) NEGATIVE Urine Ketones NEGATIVE Urine Blood SMALL H Urine Nitrite NEGATIVE Ur Leukocyte Esterase NEGATIVE Urine WBC (Auto) 1 Urine RBC (Auto) 2 Blood Type A NEGATIVE Antibody Screen NEGATIVE 03/23/17 03/23/17 07:54 12:27 WBC 16.4 H RBC 3.45 L Hgb 10.6 L D Hct 31.2 L MCV 90 MCH 30.8 MCHC 34.1 RDW 15.0 H Plt Count 179 Seg Neutrophils % Lymphocytes % Monocytes % Eosinophils % Basophils % Absolute Neutrophils Absolute Lymphocytes Absolute Monocytes Absolute Eosinophils Absolute Basophils Sodium 137.0 Potassium 3.7 Chloride 97 L Carbon Dioxide 33 H Anion Gap 7 BUN 23 H Creatinine 0.55 Est GFR ( Amer) > 60 Est GFR (Non-Af Amer) > 60 Glucose 142 H Calcium 7.9 L Urine Color Urine Appearance Urine pH Ur Specific [place] Urine Protein Urine Glucose (UA) Urine Ketones Urine Blood Urine Nitrite Ur Leukocyte Esterase Urine WBC (Auto) Urine RBC (Auto) Blood Type Antibody Screen 03/15/17 03/16/17 03/16/17 17:52 00:22 05:06 Troponin I 0.040 0.035 0.041 03/16/17 03/16/17 11:49 18:15 Troponin I 0.032 0.038 Impressions: Abdomen/Pelvis CT 03/16/17 15:25 IMPRESSION: No acute findings. 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 Chest CT 03/16/17 15:25 IMPRESSION: Extensive emphysema. No acute process. Hip/Pelvis X-Ray 03/18/17 00:00 IMPRESSION: Advanced joint space narrowing right hip with bony spurring. No fracture. Abdomen CT 03/22/17 00:00 IMPRESSION: Large right retroperitoneal mixed density hematoma extending from the inferior aspect of the ileus psoas muscle to the level of the right kidney, this measures 19 cm in craniocaudad dimension by 10 cm transversely by 8 cm thickness. Moderate bilateral pleural effusions and lower lobe airspace disease. Chest X-Ray 03/22/17 00:00 IMPRESSION: Pulmonary vascular congestion with mild interstitial edema. Pelvis CT 03/22/17 00:00 IMPRESSION: Right-sided retroperitoneal acute hematoma, incompletely included in the field of view, this may extend superiorly in the retroperitoneum up around the right kidney or liver. Findings called as a critical result to the attending physician, 1545 hours 03/22/2017 Assessment & Plan - Diagnosis (1) Traumatic retroperitoneal hematoma Qualifiers: Encounter type: subsequent encounter Qualified Code(s): S36.892D - Contusion of other intra-abdominal organs, subsequent encounter Is this a current diagnosis for this admission?: Yes Plan: Patient fell in the hospital on the night of 03/17/17. Have repeated patient's CT of the pelvis for possible occult hip fracture in light of his severe osteoarthritis ongoing pain and abdominal pain. Patient found to have a retroperitoneal hematoma. Repeat CT with IV contrast reveals a large retroperitoneal hematoma. Patient is stable status post 2 units packed red blood cells. Continue to monitor H&H. Hold all anticoagulation. Appreciate surgical input. (2) Acute blood loss anemia Is this a current diagnosis for this admission?: Yes Plan: Currently stable status post 2 units packed red blood cells on 03/22/2017 (3) Acute respiratory failure with hypoxia and hypercapnia Is this a current diagnosis for this admission?: Yes Plan: Continue oxygen and BiPAP as needed (4) CAD (coronary artery disease) Qualifiers: Coronary Disease-Associated Artery/Lesion type: unspecified vessel or lesion type Associated angina: angina presence unspecified Is this a current diagnosis for this admission?: Yes Plan: (5) COPD (chronic obstructive pulmonary disease) Qualifiers: COPD type: chronic bronchitis Chronic bronchitis type: simple Qualified Code(s): J41.0 - Simple chronic bronchitis Is this a current diagnosis for this admission?: Yes Plan: At this time, patient is not on a steroid. We will hold this. Repeat chest x- ray did not reveal any consolidation. (6) Elevated troponin Is this a current diagnosis for this admission?: Yes Plan: Likely related to demand ischemia (7) Fall Qualifiers: Encounter type: subsequent encounter Qualified Code(s): W19.XXXD - Unspecified fall, subsequent encounter Is this a current diagnosis for this admission?: Yes Plan: Patient fell approximately 5 days ago. (8) Hip osteoarthritis Qualifiers: Osteoarthritis type: primary Laterality: right Qualified Code(s): M16.11 - Unilateral primary osteoarthritis, right hip Is this a current diagnosis for this admission?: Yes (9) Hyperlipidemia Qualifiers: Hyperlipidemia type: unspecified Qualified Code(s): E78.5 - Hyperlipidemia , unspecified Is this a current diagnosis for this admission?: Yes (10) Hypertension Qualifiers: Hypertension type: essential hypertension Qualified Code(s): I10 - Essential (primary) hypertension Is this a current diagnosis for this admission?: Yes (11) Protein-calorie malnutrition, severe Is this a current diagnosis for this admission?: Yes Plan: Continue Ensure supplementation. Appreciate dietary input. (12) Tobacco abuse Is this a current diagnosis for this admission?: Yes (13) Hematuria Qualifiers: Hematuria type: gross Qualified Code(s): R31.0 - Gross hematuria Is this a current diagnosis for this admission?: Yes - Time Time Spent with patient: 25-34 minutes Medications reviewed and adjusted accordingly: Yes
[2017-03-23 18:06] LABS: HEMATOCRIT 30.7 % (37.9-51.0); HEMOGLOBIN 10.5 g/dL (13.5-17.0); HGB HCT DIFFERENCE 0.8; MEAN CORPUSCULAR HEMOGLOBIN 30.9 pg (27.0-33.4); MEAN CORPUSCULAR HGB CONC 34.2 g/dL (32.0-36.0); MEAN CORPUSCULAR VOLUME 90 fl (80-97); RED BLOOD COUNT 3.39 10^6/uL (4.35-5.55); WHITE BLOOD COUNT 15.8 10^3/uL (4.0-10.5)
[2017-03-23 18:40] LABS: BAND NEUTROPHILS % (MANUAL) 1 % (3-5); BASOPHILS % (MANUAL) 0 % (0-2); EOSINOPHILS % (MANUAL) 1 % (0-6); LYMPHOCYTES % (MANUAL) 5 % (13-45); TOTAL CELLS COUNTED 100
[2017-03-23 18:41] LABS: ANISOCYTOSIS SLIGHT; HYPOCHROMASIA SLIGHT; PLATELET CLUMPS PRESENT
[2017-03-23] MEDS: SENNOSIDES/DOCUSATE 8.6-50 MG 1 EACH TABLET PO SCH (21:52)
[2017-03-23] MEDS: MONTELUKAST SODIUM 10 MG TABLET PO SCH (21:54)
[2017-03-23] MEDS: ATORVASTATIN CALCIUM 40 MG TABLET PO SCH (21:54)
[2017-03-23] MEDS: METOPROLOL TARTRATE 25 MG TABLET PO SCH (21:55)
[2017-03-24] MEDS: LEVALBUTEROL HCL NEB 0.63 MG/3 ML AMPUL NEB SCH ×4 (02:24→20:24)
[2017-03-24] MEDS: NORMAL SALINE 1000 ML 1,000 ML IV PRN (02:38)
[2017-03-24] MEDS: LANSOPRAZOLE 30 MG TAB.RAP.DR PO SCH (06:10)
[2017-03-24] MEDS: GABAPENTIN 100 MG CAPSULE PO SCH ×3 (06:11→21:31)
[2017-03-24] MEDS: METOPROLOL TARTRATE 25 MG TABLET PO SCH ×2 (10:05→21:31)
[2017-03-24] MEDS: DOCUSATE SODIUM 100 MG CAPSULE PO SCH ×2 (10:06→17:31)
[2017-03-24] MEDS: MEGESTROL ACETATE SUSP 400 MG/10 ML UDCUP PO SCH (10:06)
[2017-03-24] MEDS: NYSTATIN CREAM 15 GM TP SCH ×2 (10:07→21:34)
[2017-03-24] MEDS: ZINC OXIDE 20% OINTMENT 28.35 GM TP SCH ×2 (10:07→21:31)
--- NOTE | 2017-03-24 16:54 | PDOC PROGRESS REPORT ---
Subjective Progress Note for:: 03/24/17 Subjective:: Family states that pt is doing better. Pt states that he is having pain on the right side. Physical Exam Vital Signs: Temp Pulse Resp BP Pulse Ox 98.0 F 103 H 18 122/40 L 98 03/24/17 11:30 03/24/17 14:00 03/24/17 13:02 03/24/17 11:30 03/24/17 16:00 Intake & Output 03/23/17 03/24/17 03/25/17 06:59 06:59 06:59 Intake Total 3702 3260 149 Output Total 400 650 Balance 3302 2610 149 Weight 54.5 kg 54.5 kg General appearance: PRESENT: no acute distress, thin Head exam: PRESENT: atraumatic, normocephalic Eye exam: PRESENT: conjunctiva pink, EOMI. ABSENT: scleral icterus Ear exam: PRESENT: normal external ear exam Mouth exam: PRESENT: moist, tongue midline Neck exam: ABSENT: carotid bruit, JVD, lymphadenopathy, thyromegaly Respiratory exam: PRESENT: clear to auscultation [place]. ABSENT: rales, rhonchi, wheezes Cardiovascular exam: PRESENT: RRR. ABSENT: diastolic murmur, rubs, systolic murmur Pulses: PRESENT: normal dorsalis pedis pul Vascular exam: PRESENT: normal capillary refill GI/Abdominal exam: PRESENT: normal bowel sounds, soft. ABSENT: distended, guarding, mass, organolmegaly, rebound, tenderness Rectal exam: PRESENT: deferred Extremities exam: PRESENT: full ROM. ABSENT: calf tenderness, clubbing, pedal edema Neurological exam: PRESENT: alert, awake, oriented to person, oriented to place , oriented to time, oriented to situation, CN II-XII grossly intact. ABSENT: motor sensory deficit Psychiatric exam: PRESENT: appropriate affect, normal mood. ABSENT: homicidal ideation, suicidal ideation Skin exam: PRESENT: dry, intact, warm. ABSENT: cyanosis, rash Results Laboratory Results: 03/23/17 17:45 03/23/17 12:27 03/23/17 17:45 WBC 15.8 H RBC 3.39 L Hgb 10.5 L Hct 30.7 L MCV 90 MCH 30.9 MCHC 34.2 RDW 15.0 H Plt Count 129 L Seg Neutrophils % Not Reportable Lymphocytes % Not Reportable Monocytes % Not Reportable Eosinophils % Not Reportable Basophils % Not Reportable Absolute Neutrophils Not Reportable Absolute Lymphocytes Not Reportable Absolute Monocytes Not Reportable Absolute Eosinophils Not Reportable Absolute Basophils Not Reportable 03/15/17 03/16/17 03/16/17 17:52 00:22 05:06 Troponin I 0.040 0.035 0.041 03/16/17 03/16/17 11:49 18:15 Troponin I 0.032 0.038 Impressions: Abdomen/Pelvis CT 03/16/17 15:25 IMPRESSION: No acute findings. 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 Chest CT 03/16/17 15:25 IMPRESSION: Extensive emphysema. No acute process. Hip/Pelvis X-Ray 03/18/17 00:00 IMPRESSION: Advanced joint space narrowing right hip with bony spurring. No fracture. Abdomen CT 03/22/17 00:00 IMPRESSION: Large right retroperitoneal mixed density hematoma extending from the inferior aspect of the ileus psoas muscle to the level of the right kidney, this measures 19 cm in craniocaudad dimension by 10 cm transversely by 8 cm thickness. Moderate bilateral pleural effusions and lower lobe airspace disease. Chest X-Ray 03/22/17 00:00 IMPRESSION: Pulmonary vascular congestion with mild interstitial edema. Pelvis CT 03/22/17 00:00 IMPRESSION: Right-sided retroperitoneal acute hematoma, incompletely included in the field of view, this may extend superiorly in the retroperitoneum up around the right kidney or liver. Findings called as a critical result to the attending physician, 1545 hours 03/22/2017 Assessment & Plan - Diagnosis (1) Traumatic retroperitoneal hematoma Qualifiers: Encounter type: subsequent encounter Qualified Code(s): S36.892D - Contusion of other intra-abdominal organs, subsequent encounter Is this a current diagnosis for this admission?: Yes Plan: Supportive care. Will continue to monitor. (2) Acute respiratory failure with hypoxia and hypercapnia Is this a current diagnosis for this admission?: Yes Plan: Pt much improved. Will continue to monitor. (3) COPD (chronic obstructive pulmonary disease) Qualifiers: COPD type: chronic bronchitis Chronic bronchitis type: simple Qualified Code(s): J41.0 - Simple chronic bronchitis Is this a current diagnosis for this admission?: Yes Plan: Will continue current treatment. (4) Protein-calorie malnutrition, severe Is this a current diagnosis for this admission?: Yes Plan: Will continue supplemental drinks. (5) Tobacco abuse Is this a current diagnosis for this admission?: Yes Plan: Encourage stopping Tob use. (6) Dyspnea Qualifiers: Dyspnea type: acute respiratory distress Qualified Code(s): R06.03 - Acute respiratory distress Is this a current diagnosis for this admission?: Yes Plan: Secondary to COPD exacerbation: Will continue current treatment. (7) CAD (coronary artery disease) Qualifiers: Coronary Disease-Associated Artery/Lesion type: unspecified vessel or lesion type Associated angina: angina presence unspecified Is this a current diagnosis for this admission?: Yes Plan: Will continue current treatment. (8) Hypertension Qualifiers: Hypertension type: essential hypertension Qualified Code(s): I10 - Essential (primary) hypertension Is this a current diagnosis for this admission?: Yes Plan: metoprolol. (9) Hyperlipidemia Qualifiers: Hyperlipidemia type: unspecified Qualified Code(s): E78.5 - Hyperlipidemia , unspecified Is this a current diagnosis for this admission?: Yes Plan: Lipitor. (10) Elevated troponin Is this a current diagnosis for this admission?: Yes Plan: Patient with slight equivocal elevation of troponins in setting of respiratory failure: Most likely supply demand mismatch. Patient has been chest pain-free throughout hospitalization. (11) DVT prophylaxis Is this a current diagnosis for this admission?: Yes Plan: SCDs - Time Time Spent with patient: 15-24 minutes
[2017-03-24] MEDS: ATORVASTATIN CALCIUM 40 MG TABLET PO SCH (21:31)
[2017-03-24] MEDS: MONTELUKAST SODIUM 10 MG TABLET PO SCH (21:31)
[2017-03-24] MEDS: SENNOSIDES/DOCUSATE 8.6-50 MG 1 EACH TABLET PO SCH (21:34)
[2017-03-25] MEDS: LEVALBUTEROL HCL NEB 0.63 MG/3 ML AMPUL NEB SCH ×4 (02:02→19:45)
[2017-03-25 04:12] LABS: ABSOLUTE EOSINOPHILS # (AUTO) 0.3 10^3/uL (0.0-0.6); ABSOLUTE LYMPHOCYTES (AUTO) 0.8 10^3/uL (0.5-4.7); ABSOLUTE MONOCYTES (AUTO) 1.7 10^3/uL (0.1-1.4); ABSOLUTE NEUT (AUTO) 10.6 10^3/uL (1.7-8.2); BASOPHILS % (AUTO) 0.2 % (0-2); HEMOGLOBIN 9.7 g/dL (13.5-17.0); HGB HCT DIFFERENCE 1.1; LYMPHOCYTES % (AUTO) 6.2 % (13-45); MEAN CORPUSCULAR HEMOGLOBIN 31.5 pg (27.0-33.4); MEAN CORPUSCULAR HGB CONC 34.7 g/dL (32.0-36.0); MEAN CORPUSCULAR VOLUME 91 fl (80-97); MONOCYTES % (AUTO) 12.9 % (3-13); RED BLOOD COUNT 3.09 10^6/uL (4.35-5.55); RED CELL DISTRIBUTION WIDTH 14.8 % (11.5-14.0); SEGMENTED NEUTROPHILS % (AUTO) 78.7 % (42-78); WHITE BLOOD COUNT 13.5 10^3/uL (4.0-10.5)
[2017-03-25 04:24] LABS: ANION GAP 6 (5-19); BLOOD UREA NITROGEN 22 mg/dL (7-20); CALCIUM 8.1 mg/dL (8.4-10.2); CARBON DIOXIDE 31 mmol/L (22-30); CHLORIDE 104 mmol/L (98-107); CREATININE RESULT 0.55 mg/dL (0.52-1.25); GLUCOSE 85 mg/dL (75-110); POTASSIUM 3.9 mmol/L (3.6-5.0); SODIUM 140.5 mmol/L (137-145)
[2017-03-25] MEDS: NORMAL SALINE 1000 ML 1,000 ML IV PRN ×3 (04:59→22:12)
[2017-03-25] MEDS: LANSOPRAZOLE 30 MG TAB.RAP.DR PO SCH (05:00)
[2017-03-25] MEDS: GABAPENTIN 100 MG CAPSULE PO SCH ×3 (05:00→21:55)
[2017-03-25] MEDS: DOCUSATE SODIUM 100 MG CAPSULE PO SCH ×2 (10:57→18:00)
[2017-03-25] MEDS: METOPROLOL TARTRATE 25 MG TABLET PO SCH ×2 (10:57→21:55)
[2017-03-25] MEDS: MEGESTROL ACETATE SUSP 400 MG/10 ML UDCUP PO SCH (10:58)
[2017-03-25] MEDS: NYSTATIN CREAM 15 GM TP SCH ×2 (10:58→21:55)
[2017-03-25] MEDS: ZINC OXIDE 20% OINTMENT 28.35 GM TP SCH ×2 (10:58→21:55)
--- NOTE | 2017-03-25 14:40 | PDOC PROGRESS REPORT ---
Subjective Progress Note for:: 03/25/17 Subjective:: No new issues. Pt sitting on side of bed. Physical Exam Vital Signs: Temp Pulse Resp BP Pulse Ox 98.2 F 93 18 124/43 L 94 03/25/17 11:27 03/25/17 14:17 03/25/17 14:17 03/25/17 11:27 03/25/17 14:17 Intake & Output 03/24/17 03/25/17 03/26/17 06:59 06:59 06:59 Intake Total 3260 2287 Output Total 650 1402 Balance 2610 885 Weight 54.5 kg 57.9 kg General appearance: PRESENT: no acute distress, thin Head exam: PRESENT: atraumatic, normocephalic Eye exam: PRESENT: conjunctiva pink, EOMI. ABSENT: scleral icterus Ear exam: PRESENT: normal external ear exam Mouth exam: PRESENT: moist, tongue midline Neck exam: ABSENT: carotid bruit, JVD, lymphadenopathy, thyromegaly Respiratory exam: PRESENT: prolonged expiratory phas, other - fair air movements.. ABSENT: rales, rhonchi, wheezes Cardiovascular exam: PRESENT: RRR. ABSENT: diastolic murmur, rubs, systolic murmur Pulses: PRESENT: normal dorsalis pedis pul Vascular exam: PRESENT: normal capillary refill GI/Abdominal exam: PRESENT: normal bowel sounds, soft. ABSENT: distended, guarding, mass, organolmegaly, rebound, tenderness Rectal exam: PRESENT: deferred Extremities exam: PRESENT: full ROM. ABSENT: calf tenderness, clubbing, pedal edema Neurological exam: PRESENT: alert, awake, oriented to person, oriented to place , oriented to time, oriented to situation, CN II-XII grossly intact. ABSENT: motor sensory deficit Psychiatric exam: PRESENT: appropriate affect, normal mood. ABSENT: homicidal ideation, suicidal ideation Skin exam: PRESENT: dry, intact, warm. ABSENT: cyanosis, rash Results Laboratory Results: 03/25/17 03:25 03/25/17 03:25 03/25/17 03/25/17 03:25 03:25 WBC 13.5 H RBC 3.09 L Hgb 9.7 L Hct 28.0 L MCV 91 MCH 31.5 MCHC 34.7 RDW 14.8 H Plt Count 217 Seg Neutrophils % 78.7 H Lymphocytes % 6.2 L Monocytes % 12.9 Eosinophils % 2.0 Basophils % 0.2 Absolute Neutrophils 10.6 H Absolute Lymphocytes 0.8 Absolute Monocytes 1.7 H Absolute Eosinophils 0.3 Absolute Basophils 0.0 Sodium 140.5 Potassium 3.9 Chloride 104 Carbon Dioxide 31 H Anion Gap 6 BUN 22 H Creatinine 0.55 Est GFR ( Amer) > 60 Est GFR (Non-Af Amer) > 60 Glucose 85 Calcium 8.1 L 03/22/17 20:15 Clean Catch Midstream Urine Culture - Final Urogenital Shea Staph Coagulase Negative 03/15/17 03/16/17 03/16/17 17:52 00:22 05:06 Troponin I 0.040 0.035 0.041 03/16/17 03/16/17 11:49 18:15 Troponin I 0.032 0.038 Impressions: Abdomen/Pelvis CT 03/16/17 15:25 IMPRESSION: No acute findings. 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 Chest CT 03/16/17 15:25 IMPRESSION: Extensive emphysema. No acute process. Hip/Pelvis X-Ray 03/18/17 00:00 IMPRESSION: Advanced joint space narrowing right hip with bony spurring. No fracture. Abdomen CT 03/22/17 00:00 IMPRESSION: Large right retroperitoneal mixed density hematoma extending from the inferior aspect of the ileus psoas muscle to the level of the right kidney, this measures 19 cm in craniocaudad dimension by 10 cm transversely by 8 cm thickness. Moderate bilateral pleural effusions and lower lobe airspace disease. Chest X-Ray 03/22/17 00:00 IMPRESSION: Pulmonary vascular congestion with mild interstitial edema. Pelvis CT 03/22/17 00:00 IMPRESSION: Right-sided retroperitoneal acute hematoma, incompletely included in the field of view, this may extend superiorly in the retroperitoneum up around the right kidney or liver. Findings called as a critical result to the attending physician, 1545 hours 03/22/2017 Assessment & Plan - Diagnosis (1) Traumatic retroperitoneal hematoma Qualifiers: Encounter type: subsequent encounter Qualified Code(s): S36.892D - Contusion of other intra-abdominal organs, subsequent encounter Is this a current diagnosis for this admission?: Yes Plan: Supportive care. Will continue to monitor. (2) Acute respiratory failure with hypoxia and hypercapnia Is this a current diagnosis for this admission?: Yes Plan: Pt much improved. Will continue to monitor. (3) COPD (chronic obstructive pulmonary disease) Qualifiers: COPD type: chronic bronchitis Chronic bronchitis type: simple Qualified Code(s): J41.0 - Simple chronic bronchitis Is this a current diagnosis for this admission?: Yes Plan: Will continue current treatment. (4) Protein-calorie malnutrition, severe Is this a current diagnosis for this admission?: Yes Plan: Will continue supplemental drinks. Pt responding well to Megace. (5) Tobacco abuse Is this a current diagnosis for this admission?: Yes Plan: Encourage stopping Tob use. (6) Dyspnea Qualifiers: Dyspnea type: acute respiratory distress Qualified Code(s): R06.03 - Acute respiratory distress Is this a current diagnosis for this admission?: Yes Plan: Secondary to COPD exacerbation: Will continue current treatment. (7) CAD (coronary artery disease) Qualifiers: Coronary Disease-Associated Artery/Lesion type: unspecified vessel or lesion type Associated angina: angina presence unspecified Is this a current diagnosis for this admission?: Yes Plan: Will continue current treatment. (8) Hypertension Qualifiers: Hypertension type: essential hypertension Qualified Code(s): I10 - Essential (primary) hypertension Is this a current diagnosis for this admission?: Yes Plan: metoprolol. (9) Hyperlipidemia Qualifiers: Hyperlipidemia type: unspecified Qualified Code(s): E78.5 - Hyperlipidemia , unspecified Is this a current diagnosis for this admission?: Yes Plan: Lipitor (10) Elevated troponin Is this a current diagnosis for this admission?: Yes Plan: Patient with slight equivocal elevation of troponins in setting of respiratory failure: Most likely supply demand mismatch. Patient has been chest pain-free throughout hospitalization. (11) DVT prophylaxis Is this a current diagnosis for this admission?: Yes Plan: SCDs - Time Time Spent with patient: 15-24 minutes
[2017-03-25] MEDS: MONTELUKAST SODIUM 10 MG TABLET PO SCH (21:55)
[2017-03-25] MEDS: ATORVASTATIN CALCIUM 40 MG TABLET PO SCH (21:55)
[2017-03-25] MEDS: SENNOSIDES/DOCUSATE 8.6-50 MG 1 EACH TABLET PO SCH (21:56)
[2017-03-25] MEDS: ACETAMINOPHEN 325 MG TABLET PO PRN (22:26)
[2017-03-26] MEDS: LEVALBUTEROL HCL NEB 0.63 MG/3 ML AMPUL NEB SCH ×4 (02:02→20:08)
[2017-03-26] MEDS: ACETAMINOPHEN 325 MG TABLET PO PRN ×2 (02:23→09:09)
[2017-03-26] MEDS: OXYCODONE HCL IR 5 MG TABLET PO PRN ×2 (03:10→22:14)
[2017-03-26] MEDS: GABAPENTIN 100 MG CAPSULE PO SCH ×3 (05:17→22:13)
[2017-03-26] MEDS: LANSOPRAZOLE 30 MG TAB.RAP.DR PO SCH (05:17)
[2017-03-26] MEDS: NORMAL SALINE 1000 ML 1,000 ML IV PRN ×2 (05:21→13:30)
[2017-03-26] MEDS: METOPROLOL TARTRATE 25 MG TABLET PO SCH ×2 (09:08→22:14)
[2017-03-26] MEDS: DOCUSATE SODIUM 100 MG CAPSULE PO SCH ×2 (09:09→18:12)
[2017-03-26] MEDS: MEGESTROL ACETATE SUSP 400 MG/10 ML UDCUP PO SCH (09:11)
[2017-03-26] MEDS: ZINC OXIDE 20% OINTMENT 28.35 GM TP SCH ×2 (13:31→22:14)
[2017-03-26] MEDS: NYSTATIN CREAM 15 GM TP SCH ×2 (13:32→22:13)
--- NOTE | 2017-03-26 17:03 | PDOC PROGRESS REPORT ---
Subjective Progress Note for:: 03/26/17 Subjective:: Pt states that he is doing well. Pt states that his appetite is good. Physical Exam Vital Signs: Temp Pulse Resp BP Pulse Ox 98.0 F 94 18 134/55 H 98 03/26/17 15:27 03/26/17 15:27 03/26/17 15:27 03/26/17 15:27 03/26/17 15:27 Intake & Output 03/25/17 03/26/17 03/27/17 06:59 06:59 06:59 Intake Total 2287 3000 597 Output Total 1402 1275 225 Balance 885 1725 372 Weight 57.9 kg 60.9 kg General appearance: PRESENT: no acute distress, thin Head exam: PRESENT: atraumatic, normocephalic Eye exam: PRESENT: conjunctiva pink, EOMI, PERRLA. ABSENT: scleral icterus Ear exam: PRESENT: normal external ear exam Mouth exam: PRESENT: moist, tongue midline Neck exam: ABSENT: carotid bruit, JVD, lymphadenopathy, thyromegaly Respiratory exam: PRESENT: clear to auscultation [place]. ABSENT: rales, rhonchi, wheezes Cardiovascular exam: PRESENT: RRR. ABSENT: diastolic murmur, rubs, systolic murmur Pulses: PRESENT: normal dorsalis pedis pul Vascular exam: PRESENT: normal capillary refill GI/Abdominal exam: PRESENT: normal bowel sounds, soft. ABSENT: distended, guarding, mass, organolmegaly, rebound, tenderness Rectal exam: PRESENT: deferred Extremities exam: PRESENT: full ROM. ABSENT: calf tenderness, clubbing, pedal edema Neurological exam: PRESENT: alert, awake, oriented to person, oriented to place , oriented to time, oriented to situation, CN II-XII grossly intact. ABSENT: motor sensory deficit Psychiatric exam: PRESENT: appropriate affect, normal mood. ABSENT: homicidal ideation, suicidal ideation Skin exam: PRESENT: dry, intact, warm. ABSENT: cyanosis, rash Results Laboratory Results: 03/25/17 03:25 03/25/17 03:25 03/15/17 03/16/17 03/16/17 17:52 00:22 05:06 Troponin I 0.040 0.035 0.041 03/16/17 03/16/17 11:49 18:15 Troponin I 0.032 0.038 Impressions: Abdomen/Pelvis CT 03/16/17 15:25 IMPRESSION: No acute findings. 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 Chest CT 03/16/17 15:25 IMPRESSION: Extensive emphysema. No acute process. Hip/Pelvis X-Ray 03/18/17 00:00 IMPRESSION: Advanced joint space narrowing right hip with bony spurring. No fracture. Abdomen CT 03/22/17 00:00 IMPRESSION: Large right retroperitoneal mixed density hematoma extending from the inferior aspect of the ileus psoas muscle to the level of the right kidney, this measures 19 cm in craniocaudad dimension by 10 cm transversely by 8 cm thickness. Moderate bilateral pleural effusions and lower lobe airspace disease. Chest X-Ray 03/22/17 00:00 IMPRESSION: Pulmonary vascular congestion with mild interstitial edema. Pelvis CT 03/22/17 00:00 IMPRESSION: Right-sided retroperitoneal acute hematoma, incompletely included in the field of view, this may extend superiorly in the retroperitoneum up around the right kidney or liver. Findings called as a critical result to the attending physician, 1545 hours 03/22/2017 Assessment & Plan - Diagnosis (1) Traumatic retroperitoneal hematoma Qualifiers: Encounter type: subsequent encounter Qualified Code(s): S36.892D - Contusion of other intra-abdominal organs, subsequent encounter Is this a current diagnosis for this admission?: Yes Plan: Supportive care. Will continue to monitor. (2) Acute respiratory failure with hypoxia and hypercapnia Is this a current diagnosis for this admission?: Yes Plan: Pt much improved. Will continue to monitor. (3) COPD (chronic obstructive pulmonary disease) Qualifiers: COPD type: chronic bronchitis Chronic bronchitis type: simple Qualified Code(s): J41.0 - Simple chronic bronchitis Is this a current diagnosis for this admission?: Yes Plan: Will continue current treatment. (4) Protein-calorie malnutrition, severe Is this a current diagnosis for this admission?: Yes Plan: Will continue supplemental drinks. Pt responding well to Megace. (5) Tobacco abuse Is this a current diagnosis for this admission?: Yes Plan: Encourage stopping Tob use. (6) Dyspnea Qualifiers: Dyspnea type: acute respiratory distress Qualified Code(s): R06.03 - Acute respiratory distress Is this a current diagnosis for this admission?: Yes Plan: Secondary to COPD exacerbation: Will continue current treatment. (7) CAD (coronary artery disease) Qualifiers: Coronary Disease-Associated Artery/Lesion type: unspecified vessel or lesion type Associated angina: angina presence unspecified Is this a current diagnosis for this admission?: Yes Plan: Will continue current treatment. (8) Hypertension Qualifiers: Hypertension type: essential hypertension Qualified Code(s): I10 - Essential (primary) hypertension Is this a current diagnosis for this admission?: Yes Plan: metoprolol. (9) Hyperlipidemia Qualifiers: Hyperlipidemia type: unspecified Qualified Code(s): E78.5 - Hyperlipidemia , unspecified Is this a current diagnosis for this admission?: Yes Plan: Lipitor (10) Elevated troponin Is this a current diagnosis for this admission?: Yes Plan: Patient with slight equivocal elevation of troponins in setting of respiratory failure: Most likely supply demand mismatch. Patient has been chest pain-free throughout hospitalization. (11) DVT prophylaxis Is this a current diagnosis for this admission?: Yes Plan: SCDs - Time Time Spent with patient: 15-24 minutes - no new changes
[2017-03-26] MEDS: ATORVASTATIN CALCIUM 40 MG TABLET PO SCH (22:14)
[2017-03-26] MEDS: MONTELUKAST SODIUM 10 MG TABLET PO SCH (22:14)
[2017-03-26] MEDS: SENNOSIDES/DOCUSATE 8.6-50 MG 1 EACH TABLET PO SCH (22:14)
[2017-03-27] MEDS: LEVALBUTEROL HCL NEB 0.63 MG/3 ML AMPUL NEB SCH ×4 (01:22→19:51)
[2017-03-27] MEDS: ACETAMINOPHEN 325 MG TABLET PO PRN ×3 (03:22→17:26)
[2017-03-27] MEDS: GABAPENTIN 100 MG CAPSULE PO SCH ×3 (05:52→22:40)
[2017-03-27] MEDS: LANSOPRAZOLE 30 MG TAB.RAP.DR PO SCH (05:52)
[2017-03-27 06:47] LABS: ABSOLUTE EOSINOPHILS # (AUTO) 0.2 10^3/uL (0.0-0.6); ABSOLUTE LYMPHOCYTES (AUTO) 0.8 10^3/uL (0.5-4.7); ABSOLUTE MONOCYTES (AUTO) 1.4 10^3/uL (0.1-1.4); ABSOLUTE NEUT (AUTO) 10.8 10^3/uL (1.7-8.2); BASOPHILS % (AUTO) 0.4 % (0-2); EOSINOPHILS % (AUTO) 1.2 % (0-6); HEMATOCRIT 29.1 % (37.9-51.0); HGB HCT DIFFERENCE 0.9; LYMPHOCYTES % (AUTO) 6.3 % (13-45); MEAN CORPUSCULAR HEMOGLOBIN 31.2 pg (27.0-33.4); MEAN CORPUSCULAR HGB CONC 34.2 g/dL (32.0-36.0); MEAN CORPUSCULAR VOLUME 91 fl (80-97); MONOCYTES % (AUTO) 10.3 % (3-13); RED BLOOD COUNT 3.19 10^6/uL (4.35-5.55); RED CELL DISTRIBUTION WIDTH 14.7 % (11.5-14.0); SEGMENTED NEUTROPHILS % (AUTO) 81.8 % (42-78); WHITE BLOOD COUNT 13.2 10^3/uL (4.0-10.5)
[2017-03-27 07:16] LABS: ANION GAP 6 (5-19); BLOOD UREA NITROGEN 21 mg/dL (7-20); CALCIUM 8.5 mg/dL (8.4-10.2); CARBON DIOXIDE 31 mmol/L (22-30); CHLORIDE 102 mmol/L (98-107); GLUCOSE 76 mg/dL (75-110); POTASSIUM 4.3 mmol/L (3.6-5.0); SODIUM 139.2 mmol/L (137-145)
[2017-03-27] MEDS: DOCUSATE SODIUM 100 MG CAPSULE PO SCH ×2 (10:43→17:28)
[2017-03-27] MEDS: METOPROLOL TARTRATE 25 MG TABLET PO SCH ×2 (10:43→22:39)
[2017-03-27] MEDS: MEGESTROL ACETATE SUSP 400 MG/10 ML UDCUP PO SCH (10:44)
[2017-03-27] MEDS ORDERED: FUROSEMIDE INJ/PF 40 MG/4 ML SDV IV ONE (14:55)
[2017-03-27] MEDS: ZINC OXIDE 20% OINTMENT 28.35 GM TP SCH ×2 (16:11→22:43)
[2017-03-27] MEDS: NYSTATIN CREAM 15 GM TP SCH ×2 (16:11→22:42)
--- NOTE | 2017-03-27 16:33 | PDOC PROGRESS REPORT ---
Subjective Progress Note for:: 03/27/17 Subjective:: Pt states that he is swelling and shaking. Physical Exam Vital Signs: Temp Pulse Resp BP Pulse Ox 98.1 F 82 18 121/46 L 97 03/27/17 12:16 03/27/17 12:16 03/27/17 12:16 03/27/17 12:16 03/27/17 15:45 Intake & Output 03/26/17 03/27/17 03/28/17 06:59 06:59 06:59 Intake Total 3000 1134 Output Total 1275 225 Balance 1725 909 Weight 60.9 kg 61.9 kg General appearance: PRESENT: no acute distress, thin Head exam: PRESENT: atraumatic, normocephalic Eye exam: PRESENT: conjunctiva pink, EOMI. ABSENT: scleral icterus Ear exam: PRESENT: normal external ear exam Mouth exam: PRESENT: moist, tongue midline Neck exam: ABSENT: carotid bruit, JVD, lymphadenopathy, thyromegaly Respiratory exam: PRESENT: clear to auscultation cortez. ABSENT: rales, rhonchi, wheezes Cardiovascular exam: PRESENT: RRR. ABSENT: diastolic murmur, rubs, systolic murmur Pulses: PRESENT: normal dorsalis pedis pul Vascular exam: PRESENT: normal capillary refill GI/Abdominal exam: PRESENT: normal bowel sounds, soft. ABSENT: distended, guarding, mass, organolmegaly, rebound, tenderness Rectal exam: PRESENT: deferred Extremities exam: PRESENT: full ROM, +1 edema - upper and lower ext 1 edema. ABSENT: calf tenderness, clubbing Neurological exam: PRESENT: alert, awake, oriented to person, oriented to place , oriented to time, oriented to situation, CN II-XII grossly intact. ABSENT: motor sensory deficit Psychiatric exam: PRESENT: appropriate affect, normal mood. ABSENT: homicidal ideation, suicidal ideation Skin exam: PRESENT: dry, intact, warm. ABSENT: cyanosis, rash Results Laboratory Results: 03/27/17 05:50 03/27/17 05:50 03/27/17 03/27/17 05:50 05:50 WBC 13.2 H RBC 3.19 L Hgb 10.0 L Hct 29.1 L MCV 91 MCH 31.2 MCHC 34.2 RDW 14.7 H Plt Count 229 Seg Neutrophils % 81.8 H Lymphocytes % 6.3 L Monocytes % 10.3 Eosinophils % 1.2 Basophils % 0.4 Absolute Neutrophils 10.8 H Absolute Lymphocytes 0.8 Absolute Monocytes 1.4 Absolute Eosinophils 0.2 Absolute Basophils 0.0 Sodium 139.2 Potassium 4.3 Chloride 102 Carbon Dioxide 31 H Anion Gap 6 BUN 21 H Creatinine 0.50 L Est GFR ( Amer) > 60 Est GFR (Non-Af Amer) > 60 Glucose 76 Calcium 8.5 03/15/17 03/16/17 03/16/17 17:52 00:22 05:06 Troponin I 0.040 0.035 0.041 03/16/17 03/16/17 11:49 18:15 Troponin I 0.032 0.038 Impressions: Abdomen/Pelvis CT 03/16/17 15:25 IMPRESSION: No acute findings. 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 Chest CT 03/16/17 15:25 IMPRESSION: Extensive emphysema. No acute process. Hip/Pelvis X-Ray 03/18/17 00:00 IMPRESSION: Advanced joint space narrowing right hip with bony spurring. No fracture. Abdomen CT 03/22/17 00:00 IMPRESSION: Large right retroperitoneal mixed density hematoma extending from the inferior aspect of the ileus psoas muscle to the level of the right kidney, this measures 19 cm in craniocaudad dimension by 10 cm transversely by 8 cm thickness. Moderate bilateral pleural effusions and lower lobe airspace disease. Chest X-Ray 03/22/17 00:00 IMPRESSION: Pulmonary vascular congestion with mild interstitial edema. Pelvis CT 03/22/17 00:00 IMPRESSION: Right-sided retroperitoneal acute hematoma, incompletely included in the field of view, this may extend superiorly in the retroperitoneum up around the right kidney or liver. Findings called as a critical result to the attending physician, 1545 hours 03/22/2017 Assessment & Plan - Diagnosis (1) Volume overload Qualifiers: Hypervolemia type: transfusion-associated Qualified Code(s): E87.71 - Transfusion associated circulatory overload Is this a current diagnosis for this admission?: Yes Plan: Secondary to Steroids and Fluids: Will give Lasix. (2) Traumatic retroperitoneal hematoma Qualifiers: Encounter type: subsequent encounter Qualified Code(s): S36.892D - Contusion of other intra-abdominal organs, subsequent encounter Is this a current diagnosis for this admission?: Yes Plan: Supportive care. Will continue to monitor. (3) Acute respiratory failure with hypoxia and hypercapnia Is this a current diagnosis for this admission?: Yes Plan: Resolved (4) COPD (chronic obstructive pulmonary disease) Qualifiers: COPD type: chronic bronchitis Chronic bronchitis type: simple Qualified Code(s): J41.0 - Simple chronic bronchitis Is this a current diagnosis for this admission?: Yes Plan: Will continue current treatment. (5) Protein-calorie malnutrition, severe Is this a current diagnosis for this admission?: Yes Plan: Will continue supplemental drinks. Pt responding well to Megace. (6) Tobacco abuse Is this a current diagnosis for this admission?: Yes Plan: Encourage stopping Tob use. (7) Dyspnea Qualifiers: Dyspnea type: acute respiratory distress Qualified Code(s): R06.03 - Acute respiratory distress Is this a current diagnosis for this admission?: Yes Plan: Secondary to COPD exacerbation: Will continue current treatment. (8) CAD (coronary artery disease) Qualifiers: Coronary Disease-Associated Artery/Lesion type: unspecified vessel or lesion type Associated angina: angina presence unspecified Is this a current diagnosis for this admission?: Yes Plan: Will continue current treatment. (9) Hypertension Qualifiers: Hypertension type: essential hypertension Qualified Code(s): I10 - Essential (primary) hypertension Is this a current diagnosis for this admission?: Yes Plan: metoprolol. Will start JAY inhibitor and Norvasc (10) Hyperlipidemia Qualifiers: Hyperlipidemia type: unspecified Qualified Code(s): E78.5 - Hyperlipidemia , unspecified Is this a current diagnosis for this admission?: Yes Plan: Lipitor (11) Elevated troponin Is this a current diagnosis for this admission?: Yes Plan: Patient with slight equivocal elevation of troponins in setting of respiratory failure: Most likely supply demand mismatch. Patient has been chest pain-free throughout hospitalization. (12) DVT prophylaxis Is this a current diagnosis for this admission?: Yes Plan: SCDs - Time Time Spent with patient: 15-24 minutes
[2017-03-27] MEDS: ATORVASTATIN CALCIUM 40 MG TABLET PO SCH (22:39)
[2017-03-27] MEDS: MONTELUKAST SODIUM 10 MG TABLET PO SCH (22:40)
[2017-03-27] MEDS: RAMIPRIL 10 MG CAPSULE PO SCH (22:40)
[2017-03-27] MEDS: SENNOSIDES/DOCUSATE 8.6-50 MG 1 EACH TABLET PO SCH (22:43)
[2017-03-28] MEDS: LEVALBUTEROL HCL NEB 0.63 MG/3 ML AMPUL NEB SCH ×4 (01:57→20:05)
[2017-03-28 05:02] LABS: ABSOLUTE BASOPHILS # (AUTO) 0.1 10^3/uL (0.0-0.2); ABSOLUTE EOSINOPHILS # (AUTO) 0.2 10^3/uL (0.0-0.6); ABSOLUTE LYMPHOCYTES (AUTO) 0.9 10^3/uL (0.5-4.7); ABSOLUTE MONOCYTES (AUTO) 1.1 10^3/uL (0.1-1.4); ABSOLUTE NEUT (AUTO) 7.9 10^3/uL (1.7-8.2); BASOPHILS % (AUTO) 0.6 % (0-2); EOSINOPHILS % (AUTO) 1.7 % (0-6); HEMATOCRIT 28.9 % (37.9-51.0); HEMOGLOBIN 9.8 g/dL (13.5-17.0); HGB HCT DIFFERENCE 0.5; LYMPHOCYTES % (AUTO) 8.9 % (13-45); MEAN CORPUSCULAR HEMOGLOBIN 31.2 pg (27.0-33.4); MEAN CORPUSCULAR HGB CONC 34.1 g/dL (32.0-36.0); MEAN CORPUSCULAR VOLUME 92 fl (80-97); MONOCYTES % (AUTO) 10.6 % (3-13); RED BLOOD COUNT 3.16 10^6/uL (4.35-5.55); RED CELL DISTRIBUTION WIDTH 14.7 % (11.5-14.0); SEGMENTED NEUTROPHILS % (AUTO) 78.2 % (42-78)
[2017-03-28 05:16] LABS: BLOOD UREA NITROGEN 22 mg/dL (7-20); CALCIUM 8.2 mg/dL (8.4-10.2); CREATININE RESULT 0.49 mg/dL (0.52-1.25); GLUCOSE 83 mg/dL (75-110)
[2017-03-28 05:32] LABS: ANION GAP 5 (5-19); CARBON DIOXIDE 36 mmol/L (22-30); CHLORIDE 99 mmol/L (98-107); SODIUM 139.6 mmol/L (137-145)
[2017-03-28] MEDS: GABAPENTIN 100 MG CAPSULE PO SCH ×3 (06:31→23:33)
[2017-03-28] MEDS: LANSOPRAZOLE 30 MG TAB.RAP.DR PO SCH (06:31)
[2017-03-28] MEDS: DOCUSATE SODIUM 100 MG CAPSULE PO SCH ×2 (09:50→17:14)
[2017-03-28] MEDS: NYSTATIN CREAM 15 GM TP SCH ×2 (09:57→23:36)
[2017-03-28] MEDS: ZINC OXIDE 20% OINTMENT 28.35 GM TP SCH ×2 (09:57→23:37)
[2017-03-28] MEDS: AMLODIPINE BESYLATE 5 MG TABLET PO SCH (09:58)
[2017-03-28] MEDS: MEGESTROL ACETATE SUSP 400 MG/10 ML UDCUP PO SCH (09:59)
[2017-03-28] MEDS: METOPROLOL TARTRATE 25 MG TABLET PO SCH (09:59)
[2017-03-28] MEDS: RAMIPRIL 10 MG CAPSULE PO SCH (09:59)
--- NOTE | 2017-03-28 12:17 | PDOC PROGRESS REPORT ---
Subjective Progress Note for:: 03/28/17 Subjective:: Pt states that he is doing ok today. Physical Exam Vital Signs: Temp Pulse Resp BP Pulse Ox 98.0 F 89 16 128/40 H 94 03/28/17 07:32 03/28/17 07:32 03/28/17 07:32 03/28/17 07:32 03/28/17 07:32 Intake & Output 03/27/17 03/28/17 03/29/17 06:59 06:59 06:59 Intake Total 1134 1335 Output Total 225 1200 Balance 909 135 Weight 61.9 kg 61.9 kg General appearance: PRESENT: no acute distress, thin Head exam: PRESENT: atraumatic, normocephalic Eye exam: PRESENT: conjunctiva pink, EOMI. ABSENT: scleral icterus Ear exam: PRESENT: normal external ear exam Mouth exam: PRESENT: dry mucosa Neck exam: ABSENT: carotid bruit, JVD, lymphadenopathy, thyromegaly Respiratory exam: PRESENT: clear to auscultation cortez, prolonged expiratory phas. ABSENT: rales, rhonchi, wheezes Cardiovascular exam: PRESENT: RRR. ABSENT: diastolic murmur, rubs, systolic murmur Pulses: PRESENT: normal dorsalis pedis pul Vascular exam: PRESENT: normal capillary refill GI/Abdominal exam: PRESENT: normal bowel sounds, soft. ABSENT: distended, guarding, mass, organolmegaly, rebound, tenderness Rectal exam: PRESENT: deferred Extremities exam: PRESENT: full ROM. ABSENT: calf tenderness, clubbing, pedal edema Neurological exam: PRESENT: alert, awake, oriented to person, oriented to place , oriented to time, oriented to situation, CN II-XII grossly intact. ABSENT: motor sensory deficit Psychiatric exam: PRESENT: appropriate affect, normal mood. ABSENT: homicidal ideation, suicidal ideation Skin exam: PRESENT: dry, intact, warm. ABSENT: cyanosis, rash Results Laboratory Results: 03/28/17 03:57 03/28/17 03:57 03/28/17 03/28/17 03:57 03:57 WBC 10.0 RBC 3.16 L Hgb 9.8 L Hct 28.9 L MCV 92 MCH 31.2 MCHC 34.1 RDW 14.7 H Plt Count 184 Seg Neutrophils % 78.2 H Lymphocytes % 8.9 L Monocytes % 10.6 Eosinophils % 1.7 Basophils % 0.6 Absolute Neutrophils 7.9 Absolute Lymphocytes 0.9 Absolute Monocytes 1.1 Absolute Eosinophils 0.2 Absolute Basophils 0.1 Sodium 139.6 Potassium 4.0 Chloride 99 Carbon Dioxide 36 H Anion Gap 5 BUN 22 H Creatinine 0.49 L Est GFR ( Amer) > 60 Est GFR (Non-Af Amer) > 60 Glucose 83 Calcium 8.2 L 03/15/17 03/16/17 03/16/17 17:52 00:22 05:06 Troponin I 0.040 0.035 0.041 03/16/17 03/16/17 11:49 18:15 Troponin I 0.032 0.038 Impressions: Abdomen/Pelvis CT 03/16/17 15:25 IMPRESSION: No acute findings. 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 Chest CT 03/16/17 15:25 IMPRESSION: Extensive emphysema. No acute process. Hip/Pelvis X-Ray 03/18/17 00:00 IMPRESSION: Advanced joint space narrowing right hip with bony spurring. No fracture. Abdomen CT 03/22/17 00:00 IMPRESSION: Large right retroperitoneal mixed density hematoma extending from the inferior aspect of the ileus psoas muscle to the level of the right kidney, this measures 19 cm in craniocaudad dimension by 10 cm transversely by 8 cm thickness. Moderate bilateral pleural effusions and lower lobe airspace disease. Chest X-Ray 03/22/17 00:00 IMPRESSION: Pulmonary vascular congestion with mild interstitial edema. Pelvis CT 03/22/17 00:00 IMPRESSION: Right-sided retroperitoneal acute hematoma, incompletely included in the field of view, this may extend superiorly in the retroperitoneum up around the right kidney or liver. Findings called as a critical result to the attending physician, 1545 hours 03/22/2017 Assessment & Plan - Diagnosis (1) Traumatic retroperitoneal hematoma Qualifiers: Encounter type: subsequent encounter Qualified Code(s): S36.892D - Contusion of other intra-abdominal organs, subsequent encounter Is this a current diagnosis for this admission?: Yes Plan: Supportive care. Will continue to monitor. (2) Volume overload Qualifiers: Hypervolemia type: transfusion-associated Qualified Code(s): E87.71 - Transfusion associated circulatory overload Is this a current diagnosis for this admission?: Yes Plan: Resolved. (3) Acute respiratory failure with hypoxia and hypercapnia Is this a current diagnosis for this admission?: Yes Plan: Resolved (4) COPD (chronic obstructive pulmonary disease) Qualifiers: COPD type: chronic bronchitis Chronic bronchitis type: simple Qualified Code(s): J41.0 - Simple chronic bronchitis Is this a current diagnosis for this admission?: Yes Plan: Will continue current treatment. Will place on Spiriva and Symbicort. (5) Protein-calorie malnutrition, severe Is this a current diagnosis for this admission?: Yes Plan: Will continue supplemental drinks. Pt responding well to Megace. (6) Tobacco abuse Is this a current diagnosis for this admission?: Yes Plan: Encourage stopping Tob use. (7) Dyspnea Qualifiers: Dyspnea type: acute respiratory distress Qualified Code(s): R06.03 - Acute respiratory distress Is this a current diagnosis for this admission?: Yes Plan: Secondary to COPD exacerbation: Will continue current treatment. (8) CAD (coronary artery disease) Qualifiers: Coronary Disease-Associated Artery/Lesion type: unspecified vessel or lesion type Associated angina: angina presence unspecified Is this a current diagnosis for this admission?: Yes Plan: Will continue current treatment. (9) Hypertension Qualifiers: Hypertension type: essential hypertension Qualified Code(s): I10 - Essential (primary) hypertension Is this a current diagnosis for this admission?: Yes Plan: metoprolol. JAY inhibitor and Norvasc (10) Hyperlipidemia Qualifiers: Hyperlipidemia type: unspecified Qualified Code(s): E78.5 - Hyperlipidemia , unspecified Is this a current diagnosis for this admission?: Yes Plan: Lipitor (11) Elevated troponin Is this a current diagnosis for this admission?: Yes Plan: Patient with slight equivocal elevation of troponins in setting of respiratory failure: Most likely supply demand mismatch. Patient has been chest pain-free throughout hospitalization. (12) DVT prophylaxis Is this a current diagnosis for this admission?: Yes Plan: SCDs - Time Time Spent with patient: 15-24 minutes
[2017-03-28] MEDS ORDERED: NORMAL SALINE 500 ML IV ONE (15:45)
[2017-03-28] MEDS: SENNOSIDES/DOCUSATE 8.6-50 MG 1 EACH TABLET PO SCH (23:33)
[2017-03-28] MEDS: ATORVASTATIN CALCIUM 40 MG TABLET PO SCH (23:34)
[2017-03-28] MEDS: MONTELUKAST SODIUM 10 MG TABLET PO SCH (23:34)
[2017-03-28] MEDS: BUDESONIDE/FORMOTEROL 160-4.5 MCG 60 PUFF/6 GM MDI IH SCH (23:34)
[2017-03-29] MEDS: METOPROLOL TARTRATE 25 MG TABLET PO SCH ×3 (00:15→22:46)
[2017-03-29] MEDS: RAMIPRIL 10 MG CAPSULE PO SCH ×3 (00:18→22:46)
[2017-03-29] MEDS: ACETAMINOPHEN 325 MG TABLET PO PRN ×3 (01:32→22:47)
[2017-03-29] MEDS: LEVALBUTEROL HCL NEB 0.63 MG/3 ML AMPUL NEB SCH ×4 (02:05→20:39)
[2017-03-29] MEDS: OXYCODONE HCL IR 5 MG TABLET PO PRN (03:57)
[2017-03-29] MEDS: LANSOPRAZOLE 30 MG TAB.RAP.DR PO SCH (07:32)
[2017-03-29] MEDS: GABAPENTIN 100 MG CAPSULE PO SCH ×3 (07:32→22:46)
[2017-03-29 08:24] LABS: BLOOD UREA NITROGEN 24 mg/dL (7-20); CALCIUM 8.8 mg/dL (8.4-10.2); CARBON DIOXIDE 36 mmol/L (22-30); CHLORIDE 99 mmol/L (98-107); CREATININE RESULT 0.51 mg/dL (0.52-1.25); GLUCOSE 80 mg/dL (75-110); POTASSIUM 4.1 mmol/L (3.6-5.0); SODIUM 139.2 mmol/L (137-145)
[2017-03-29 08:52] LABS: ANION GAP 4 (5-19)
[2017-03-29] MEDS: ZINC OXIDE 20% OINTMENT 28.35 GM TP SCH ×2 (10:09→22:47)
[2017-03-29] MEDS: DOCUSATE SODIUM 100 MG CAPSULE PO SCH ×2 (10:10→17:33)
[2017-03-29] MEDS: AMLODIPINE BESYLATE 5 MG TABLET PO SCH (10:10)
[2017-03-29] MEDS: MEGESTROL ACETATE SUSP 400 MG/10 ML UDCUP PO SCH (10:10)
[2017-03-29] MEDS: BUDESONIDE/FORMOTEROL 160-4.5 MCG 60 PUFF/6 GM MDI IH SCH ×2 (10:10→22:46)
[2017-03-29] MEDS: NYSTATIN CREAM 15 GM TP SCH (10:10)
[2017-03-29] MEDS: TIOTROPIUM BROMIDE DPI 5 CAP/KIT (18 MCG/CAP) IH SCH (10:11)
--- NOTE | 2017-03-29 11:05 | PDOC PROGRESS REPORT ---
Subjective Progress Note for:: 03/29/17 Subjective:: Pt states that he is ready to go to rehab. Pt states that he is ready to get out of here. Physical Exam Vital Signs: Temp Pulse Resp BP Pulse Ox 97.8 F 92 16 153/62 H 96 03/29/17 07:35 03/29/17 07:35 03/29/17 07:35 03/29/17 07:35 03/29/17 07:35 Intake & Output 03/28/17 03/29/17 03/30/17 06:59 06:59 06:59 Intake Total 1335 1850 Output Total 1200 175 Balance 135 1675 Weight 61.9 kg 60.2 kg General appearance: PRESENT: no acute distress, thin Head exam: PRESENT: atraumatic, normocephalic Eye exam: PRESENT: conjunctiva pink, EOMI. ABSENT: scleral icterus Ear exam: PRESENT: normal external ear exam Mouth exam: PRESENT: moist, tongue midline Neck exam: ABSENT: carotid bruit, JVD, lymphadenopathy, thyromegaly Respiratory exam: PRESENT: clear to auscultation cortez. ABSENT: rales, rhonchi, wheezes Cardiovascular exam: PRESENT: RRR. ABSENT: diastolic murmur, rubs, systolic murmur Pulses: PRESENT: normal dorsalis pedis pul Vascular exam: PRESENT: normal capillary refill GI/Abdominal exam: PRESENT: normal bowel sounds, soft. ABSENT: distended, guarding, mass, organolmegaly, rebound, tenderness Rectal exam: PRESENT: deferred Extremities exam: PRESENT: full ROM. ABSENT: calf tenderness, clubbing, pedal edema Neurological exam: PRESENT: alert, awake, oriented to person, oriented to place , oriented to time, oriented to situation, CN II-XII grossly intact. ABSENT: motor sensory deficit Psychiatric exam: PRESENT: appropriate affect, normal mood. ABSENT: homicidal ideation, suicidal ideation Skin exam: PRESENT: dry, intact, warm. ABSENT: cyanosis, rash Results Laboratory Results: 03/28/17 03:57 03/29/17 07:59 03/29/17 07:59 Sodium 139.2 Potassium 4.1 Chloride 99 Carbon Dioxide 36 H Anion Gap 4 L BUN 24 H Creatinine 0.51 L Est GFR ( Amer) > 60 Est GFR (Non-Af Amer) > 60 Glucose 80 Calcium 8.8 03/15/17 03/16/17 03/16/17 17:52 00:22 05:06 Troponin I 0.040 0.035 0.041 03/16/17 03/16/17 11:49 18:15 Troponin I 0.032 0.038 Impressions: Abdomen/Pelvis CT 03/16/17 15:25 IMPRESSION: No acute findings. 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 Chest CT 03/16/17 15:25 IMPRESSION: Extensive emphysema. No acute process. Hip/Pelvis X-Ray 03/18/17 00:00 IMPRESSION: Advanced joint space narrowing right hip with bony spurring. No fracture. Abdomen CT 03/22/17 00:00 IMPRESSION: Large right retroperitoneal mixed density hematoma extending from the inferior aspect of the ileus psoas muscle to the level of the right kidney, this measures 19 cm in craniocaudad dimension by 10 cm transversely by 8 cm thickness. Moderate bilateral pleural effusions and lower lobe airspace disease. Chest X-Ray 03/22/17 00:00 IMPRESSION: Pulmonary vascular congestion with mild interstitial edema. Pelvis CT 03/22/17 00:00 IMPRESSION: Right-sided retroperitoneal acute hematoma, incompletely included in the field of view, this may extend superiorly in the retroperitoneum up around the right kidney or liver. Findings called as a critical result to the attending physician, 1545 hours 03/22/2017 Assessment & Plan - Diagnosis (1) Traumatic retroperitoneal hematoma Qualifiers: Encounter type: subsequent encounter Qualified Code(s): S36.892D - Contusion of other intra-abdominal organs, subsequent encounter Is this a current diagnosis for this admission?: Yes Plan: Supportive care. Will continue to monitor. (2) Volume overload Qualifiers: Hypervolemia type: transfusion-associated Qualified Code(s): E87.71 - Transfusion associated circulatory overload Is this a current diagnosis for this admission?: Yes Plan: Resolved. (3) Acute respiratory failure with hypoxia and hypercapnia Is this a current diagnosis for this admission?: Yes Plan: Resolved (4) COPD (chronic obstructive pulmonary disease) Qualifiers: COPD type: chronic bronchitis Chronic bronchitis type: simple Qualified Code(s): J41.0 - Simple chronic bronchitis Is this a current diagnosis for this admission?: Yes Plan: Will continue current treatment. Spiriva and Symbicort. (5) Protein-calorie malnutrition, severe Is this a current diagnosis for this admission?: Yes Plan: Will continue supplemental drinks. Pt responding well to Megace. (6) Tobacco abuse Is this a current diagnosis for this admission?: Yes Plan: Encourage stopping Tob use. (7) Dyspnea Qualifiers: Dyspnea type: acute respiratory distress Qualified Code(s): R06.03 - Acute respiratory distress Is this a current diagnosis for this admission?: Yes Plan: Secondary to COPD exacerbation: Will continue current treatment. (8) CAD (coronary artery disease) Qualifiers: Coronary Disease-Associated Artery/Lesion type: unspecified vessel or lesion type Associated angina: angina presence unspecified Is this a current diagnosis for this admission?: Yes Plan: Will continue current treatment. (9) Hypertension Qualifiers: Hypertension type: essential hypertension Qualified Code(s): I10 - Essential (primary) hypertension Is this a current diagnosis for this admission?: Yes Plan: Medications were held yesterday due to hypotension secondary to diuresing pt. Pt was given IVF and BP elevated. Will restart home medications. (10) Hyperlipidemia Qualifiers: Hyperlipidemia type: unspecified Qualified Code(s): E78.5 - Hyperlipidemia , unspecified Is this a current diagnosis for this admission?: Yes Plan: Lipitor (11) Elevated troponin Is this a current diagnosis for this admission?: Yes Plan: Patient with slight equivocal elevation of troponins in setting of respiratory failure: Most likely supply demand mismatch. Patient has been chest pain-free throughout hospitalization. (12) DVT prophylaxis Is this a current diagnosis for this admission?: Yes Plan: SCDs - Time Time Spent with patient: Less than 15 minutes - Pt awaiting placement.
[2017-03-29] MEDS: MONTELUKAST SODIUM 10 MG TABLET PO SCH (22:46)
[2017-03-29] MEDS: ATORVASTATIN CALCIUM 40 MG TABLET PO SCH (22:46)
[2017-03-29] MEDS: SENNOSIDES/DOCUSATE 8.6-50 MG 1 EACH TABLET PO SCH (22:46)
[2017-03-30] MEDS: LEVALBUTEROL HCL NEB 0.63 MG/3 ML AMPUL NEB SCH ×4 (02:21→20:44)
[2017-03-30] MEDS: LANSOPRAZOLE 30 MG TAB.RAP.DR PO SCH (06:51)
[2017-03-30] MEDS: GABAPENTIN 100 MG CAPSULE PO SCH ×3 (06:52→21:24)
[2017-03-30] MEDS: BUDESONIDE/FORMOTEROL 160-4.5 MCG 60 PUFF/6 GM MDI IH SCH ×2 (09:53→21:24)
[2017-03-30] MEDS: RAMIPRIL 10 MG CAPSULE PO SCH ×2 (09:54→21:25)
[2017-03-30] MEDS: MEGESTROL ACETATE SUSP 400 MG/10 ML UDCUP PO SCH (09:54)
[2017-03-30] MEDS: METOPROLOL TARTRATE 25 MG TABLET PO SCH ×2 (09:54→21:24)
[2017-03-30] MEDS: ZINC OXIDE 20% OINTMENT 28.35 GM TP SCH ×2 (09:55→22:26)
[2017-03-30] MEDS: TIOTROPIUM BROMIDE DPI 5 CAP/KIT (18 MCG/CAP) IH SCH (09:55)
[2017-03-30] MEDS: DOCUSATE SODIUM 100 MG CAPSULE PO SCH ×2 (09:56→17:27)
--- NOTE | 2017-03-30 12:20 | PDOC PROGRESS REPORT ---
Subjective Progress Note for:: 03/30/17 Subjective:: Pt states that he is ready to go to rehab. Pt states that he is doing ok today. Physical Exam Vital Signs: Temp Pulse Resp BP Pulse Ox 97.6 F 90 18 101/49 L 97 03/30/17 11:33 03/30/17 11:33 03/30/17 11:33 03/30/17 11:33 03/30/17 11:33 Intake & Output 03/29/17 03/30/17 03/31/17 06:59 06:59 06:59 Intake Total 1850 1160 Output Total 175 Balance 1675 1160 Weight 60.2 kg 60.2 kg General appearance: PRESENT: no acute distress, thin Head exam: PRESENT: atraumatic, normocephalic Eye exam: PRESENT: conjunctiva pink, EOMI. ABSENT: scleral icterus Ear exam: PRESENT: normal external ear exam Mouth exam: PRESENT: moist, tongue midline Neck exam: ABSENT: carotid bruit, JVD, lymphadenopathy, thyromegaly Respiratory exam: PRESENT: clear to auscultation [place]. ABSENT: rales, rhonchi, wheezes Cardiovascular exam: PRESENT: RRR. ABSENT: diastolic murmur, rubs, systolic murmur Pulses: PRESENT: normal dorsalis pedis pul Vascular exam: PRESENT: normal capillary refill GI/Abdominal exam: PRESENT: normal bowel sounds, soft. ABSENT: distended, guarding, mass, organolmegaly, rebound, tenderness Rectal exam: PRESENT: deferred Extremities exam: PRESENT: full ROM. ABSENT: calf tenderness, clubbing, pedal edema Neurological exam: PRESENT: alert, awake, oriented to person, oriented to place , oriented to time, oriented to situation, CN II-XII grossly intact. ABSENT: motor sensory deficit Psychiatric exam: PRESENT: appropriate affect, normal mood. ABSENT: homicidal ideation, suicidal ideation Skin exam: PRESENT: dry, intact, warm. ABSENT: cyanosis, rash Results Laboratory Results: 03/28/17 03:57 03/29/17 07:59 03/15/17 03/16/17 03/16/17 17:52 00:22 05:06 Troponin I 0.040 0.035 0.041 03/16/17 03/16/17 11:49 18:15 Troponin I 0.032 0.038 Impressions: Abdomen/Pelvis CT 03/16/17 15:25 IMPRESSION: No acute findings. 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 Chest CT 03/16/17 15:25 IMPRESSION: Extensive emphysema. No acute process. Hip/Pelvis X-Ray 03/18/17 00:00 IMPRESSION: Advanced joint space narrowing right hip with bony spurring. No fracture. Abdomen CT 03/22/17 00:00 IMPRESSION: Large right retroperitoneal mixed density hematoma extending from the inferior aspect of the ileus psoas muscle to the level of the right kidney, this measures 19 cm in craniocaudad dimension by 10 cm transversely by 8 cm thickness. Moderate bilateral pleural effusions and lower lobe airspace disease. Chest X-Ray 03/22/17 00:00 IMPRESSION: Pulmonary vascular congestion with mild interstitial edema. Pelvis CT 03/22/17 00:00 IMPRESSION: Right-sided retroperitoneal acute hematoma, incompletely included in the field of view, this may extend superiorly in the retroperitoneum up around the right kidney or liver. Findings called as a critical result to the attending physician, 1545 hours 03/22/2017 Assessment & Plan - Diagnosis (1) Hypertension Qualifiers: Hypertension type: essential hypertension Qualified Code(s): I10 - Essential (primary) hypertension Is this a current diagnosis for this admission?: Yes Plan: We will continue current blood pressure medication. Patient's blood pressure appears to fluctuate throughout the day. Norvasc was discontinued yesterday due to patient becoming too hypotensive (2) Traumatic retroperitoneal hematoma Qualifiers: Encounter type: subsequent encounter Qualified Code(s): S36.892D - Contusion of other intra-abdominal organs, subsequent encounter Is this a current diagnosis for this admission?: Yes Plan: Supportive care. Will continue to monitor. (3) Volume overload Qualifiers: Hypervolemia type: transfusion-associated Qualified Code(s): E87.71 - Transfusion associated circulatory overload Is this a current diagnosis for this admission?: Yes Plan: Resolved. (4) Acute respiratory failure with hypoxia and hypercapnia Is this a current diagnosis for this admission?: Yes Plan: Resolved (5) COPD (chronic obstructive pulmonary disease) Qualifiers: COPD type: chronic bronchitis Chronic bronchitis type: simple Qualified Code(s): J41.0 - Simple chronic bronchitis Is this a current diagnosis for this admission?: Yes Plan: Will continue current treatment. Spiriva and Symbicort. (6) Protein-calorie malnutrition, severe Is this a current diagnosis for this admission?: Yes Plan: Will continue supplemental drinks. Pt responding well to Megace. (7) Tobacco abuse Is this a current diagnosis for this admission?: Yes Plan: Encourage stopping Tob use. (8) Dyspnea Qualifiers: Dyspnea type: acute respiratory distress Qualified Code(s): R06.03 - Acute respiratory distress Is this a current diagnosis for this admission?: Yes Plan: Secondary to COPD exacerbation: Will continue current treatment. (9) CAD (coronary artery disease) Qualifiers: Coronary Disease-Associated Artery/Lesion type: unspecified vessel or lesion type Associated angina: angina presence unspecified Is this a current diagnosis for this admission?: Yes Plan: Will continue current treatment. (10) Hyperlipidemia Qualifiers: Hyperlipidemia type: unspecified Qualified Code(s): E78.5 - Hyperlipidemia , unspecified Is this a current diagnosis for this admission?: Yes Plan: Lipitor (11) Elevated troponin Is this a current diagnosis for this admission?: Yes Plan: Patient with slight equivocal elevation of troponins in setting of respiratory failure: Most likely supply demand mismatch. Patient has been chest pain-free throughout hospitalization. (12) DVT prophylaxis Is this a current diagnosis for this admission?: Yes Plan: SCDs - Time Time Spent with patient: 15-24 minutes
[2017-03-30] MEDS: MONTELUKAST SODIUM 10 MG TABLET PO SCH (21:24)
[2017-03-30] MEDS: ATORVASTATIN CALCIUM 40 MG TABLET PO SCH (21:24)
[2017-03-30] MEDS: OXYCODONE HCL IR 5 MG TABLET PO PRN (21:25)
[2017-03-30] MEDS: SENNOSIDES/DOCUSATE 8.6-50 MG 1 EACH TABLET PO SCH (21:25)
[2017-03-30] MEDS: ACETAMINOPHEN 325 MG TABLET PO PRN (23:33)
[2017-03-31] MEDS: LEVALBUTEROL HCL NEB 0.63 MG/3 ML AMPUL NEB SCH ×3 (01:58→13:37)
[2017-03-31] MEDS: GABAPENTIN 100 MG CAPSULE PO SCH ×2 (05:48→13:41)
[2017-03-31] MEDS: OXYCODONE HCL IR 5 MG TABLET PO PRN ×2 (05:49→13:40)
[2017-03-31] MEDS: LANSOPRAZOLE 30 MG TAB.RAP.DR PO SCH (05:49)
[2017-03-31] MEDS: BUDESONIDE/FORMOTEROL 160-4.5 MCG 60 PUFF/6 GM MDI IH SCH (09:22)
[2017-03-31] MEDS: METOPROLOL TARTRATE 25 MG TABLET PO SCH (09:22)
[2017-03-31] MEDS: MEGESTROL ACETATE SUSP 400 MG/10 ML UDCUP PO SCH (09:22)
[2017-03-31] MEDS: TIOTROPIUM BROMIDE DPI 5 CAP/KIT (18 MCG/CAP) IH SCH (09:23)
[2017-03-31] MEDS: RAMIPRIL 10 MG CAPSULE PO SCH (09:23)
[2017-03-31] MEDS: DOCUSATE SODIUM 100 MG CAPSULE PO SCH (09:23)
[2017-03-31] MEDS: ZINC OXIDE 20% OINTMENT 28.35 GM TP SCH (09:24)
--- NOTE | 2017-03-31 11:04 | PDOC DISCHARGE SUMMARY ---
General - Admit/Disc Date/PCP Admission Date/Primary Care Provider: 03/15/17 13:28 LAURIE KELLOGG MD Discharge Date: 03/31/17 - Discharge Diagnosis (1) Acute respiratory failure with hypoxia and hypercapnia Is this a current diagnosis for this admission?: Yes Summary: The patient's acute respiratory failure has resolved. His respiratory failure was secondary to an acute COPD exacerbation. (2) COPD exacerbation Summary: Resolved. The patient has been weaned off of steroids at this point. Continue bronchodilators as an outpatient. (3) Traumatic retroperitoneal hematoma Is this a current diagnosis for this admission?: Yes Summary: Stable. This was due to a mechanical fall here in the hospital. (4) Elevated troponin Is this a current diagnosis for this admission?: Yes Summary: Likely due to demand ischemia (5) CAD (coronary artery disease) Is this a current diagnosis for this admission?: Yes Summary: His aspirin therapy has been stopped due to his retroperitoneal bleed. He has no chest pain or symptoms at the time of discharge (6) Fall Is this a current diagnosis for this admission?: Yes Summary: The patient had an accidental fall in the hospital (7) Hip osteoarthritis Is this a current diagnosis for this admission?: Yes Summary: Continue low dose oxycodone (8) Hypertension Is this a current diagnosis for this admission?: Yes Summary: Stable (9) Protein-calorie malnutrition, severe Is this a current diagnosis for this admission?: Yes Summary: Continue to encourage good by mouth intake and supplements (10) Tobacco abuse Is this a current diagnosis for this admission?: Yes Summary: Certainly it would be in his best interest to quit smoking (11) Hematuria Summary: This will need to be followed as an outpatient (12) Acute blood loss anemia Is this a current diagnosis for this admission?: Yes Summary: Due to retroperitoneal hematoma. S/P transfusion and stable at discharge (13) Leukocytosis Summary: Secondary to treatment with steroids. Resolved - Additional Information Resuscitation Status: Full Code Discharge Activity: Activity As Tolerated, Balance Activity w/Rest, Slowly Increase Activity, Supervised Activity Home Medications: Atorvastatin Calcium [Lipitor 40 mg Tablet] 40 mg PO QHS 03/15/17 Ramipril [Altace 10 mg Capsule] 10 mg PO Q12 03/15/17 Acetaminophen [Tylenol 325 mg Tablet] 650 mg PO Q4HP PRN tablet 03/31/17 Budesonide/Formoterol Fumarate [Symbicort HFA 160-4.5 mcg Inhaler 6 gm] 2 puff IH Q12 inhaler 03/31/17 Docusate Sodium [Colace 100 mg Capsule] 100 mg PO BID capsule 03/31/17 Gabapentin [Neurontin 100 mg Capsule] 100 mg PO Q8 capsule 03/31/17 Levalbuterol HCl [Xopenex Neb 0.63 mg/3 ml Ampul] 0.63 mg NEB RTQ6 vial.neb Megestrol Acetate [Megace Nai 400 mg/10 ml Udcup] 400 mg PO DAILY udc Metoprolol Tartrate [Lopressor 25 mg Tablet] 25 mg PO Q12 tablet 03/31/17 Montelukast Sodium [Singulair 10 mg Tablet] 10 mg PO QHS tablet 03/31/17 Oxycodone HCl [Oxy-Ir 5 mg Tablet] 2.5 mg PO Q8HP PRN #10 tablet 03/31/17 Sennosides/Docusate 8.6-50 mg [Senna Plus Tablet] 2 each PO QHS tablet Tiotropium Wilson [Spiriva Handihaler 5 Cap/Kit (18 Mcg/Cap)] 1 cap IH DAILY kit 03/31/17 Zinc Oxide [Zinc Oxide 20% Ointment 28.35 gm] 1 applic TP Q12 tube 03/31/17 History of Present Illness History of Present Illness: ARACELI PICKETT is a 86 year old male who presented to the emergency room with increased shortness of breath. He was found to be having a COPD exacerbation and was quite hypoxic. He was initially placed on BiPAP. He was referred for admission Hospital Course Hospital Course: Please see complete medical records for details. This has been a long complicated hospitalization and this will be a brief summary. In short this gentleman was admitted to the hospital for an acute COPD exacerbation. He was treated with antibiotics and IV steroids and over time his breathing stabilized and his acute respiratory failure resolved. His hospitalization was complicated by suffering mechanical fall resulting in increased hip pain. He was seen by orthopedic surgery he did not find any evidence of fracture. Repeat CT imaging later revealed a large retroperitoneal hematoma. The patient hemoglobin did drop and he required transfusion. His antiplatelet therapy was stopped. He was followed closely and was seen by general surgery who did not recommend any intervention. At this point the patient is significantly debilitated after this acute illness. The family has opted for subacute rehabilitation at the time of discharge. I was notified by the discharge planners that the patient does not fact have a bed available today. He will be transitioned to that facility in stable condition. Physical Exam Vital Signs: Temp Pulse Resp BP Pulse Ox 98.1 F 96 16 129/50 H 96 03/31/17 07:23 03/31/17 07:58 03/31/17 07:58 03/31/17 07:23 03/31/17 07:58 Intake & Output 03/30/17 03/31/17 04/01/17 06:59 06:59 06:59 Intake Total 1160 1205 Balance 1160 1205 Weight 60.2 kg 60.2 kg General appearance: PRESENT: no acute distress Head exam: PRESENT: atraumatic, normocephalic Mouth exam: PRESENT: moist - Kristian Respiratory exam: PRESENT: clear to auscultation cortez, decreased breath sounds. ABSENT: rales, rhonchi, wheezes GI/Abdominal exam: PRESENT: normal bowel sounds, soft. ABSENT: distended, guarding, mass, organolmegaly, rebound, tenderness Rectal exam: PRESENT: deferred Extremities exam: PRESENT: full ROM. ABSENT: calf tenderness, clubbing, pedal edema Neurological exam: PRESENT: alert, awake, oriented to person, oriented to place , oriented to time, oriented to situation, CN II-XII grossly intact. ABSENT: motor sensory deficit Psychiatric exam: PRESENT: appropriate affect, normal mood. ABSENT: homicidal ideation, suicidal ideation Skin exam: PRESENT: dry, intact, warm. ABSENT: cyanosis, rash Results Laboratory Results: 03/28/17 03:57 03/29/17 07:59 03/15/17 03/16/17 03/16/17 17:52 00:22 05:06 Troponin I 0.040 0.035 0.041 03/16/17 03/16/17 11:49 18:15 Troponin I 0.032 0.038 Impressions: Abdomen/Pelvis CT 03/16/17 15:25 IMPRESSION: No acute findings. 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 Chest CT 03/16/17 15:25 IMPRESSION: Extensive emphysema. No acute process. Hip/Pelvis X-Ray 03/18/17 00:00 IMPRESSION: Advanced joint space narrowing right hip with bony spurring. No fracture. Abdomen CT 03/22/17 00:00 IMPRESSION: Large right retroperitoneal mixed density hematoma extending from the inferior aspect of the ileus psoas muscle to the level of the right kidney, this measures 19 cm in craniocaudad dimension by 10 cm transversely by 8 cm thickness. Moderate bilateral pleural effusions and lower lobe airspace disease. Chest X-Ray 03/22/17 00:00 IMPRESSION: Pulmonary vascular congestion with mild interstitial edema. Pelvis CT 03/22/17 00:00 IMPRESSION: Right-sided retroperitoneal acute hematoma, incompletely included in the field of view, this may extend superiorly in the retroperitoneum up around the right kidney or liver. Findings called as a critical result to the attending physician, 1545 hours 03/22/2017 Qualifiers PATEINT BEING DISCHARGED WITH ANY OF THE FOLLOWING DIAGNOSIS?: No - They feel like she is Plan Time Spent: Greater than 30 Minutes
[2017-03-31 12:07] VITALS: BP 105/41
== END 2017-03-31 14:54 | DRG 190 ==
LOC: ER 12:08 → EH 13:28 → UNDOADMIN 13:38 → EH 13:38 → 5 16:04
PROVIDERS: ADMIT Emergency Medicine; ATTEND Emergency Medicine
PROC: 5A09457 Assistance with Respiratory Ventilation, 24-96 Consecutive Hours, Continuous Positive Airway Pressure (ICD-10-PCS; principal; 2017-03-15)
PROC: 3E0F73Z Introduction of Anti-inflammatory into Respiratory Tract, Via Natural or Artificial Opening (ICD-10-PCS; 2017-03-15)
PROC: 30233N1 Transfusion of Nonautologous Red Blood Cells into Peripheral Vein, Percutaneous Approach (ICD-10-PCS; 2017-03-22)
PROC: 3E0234Z Introduction of Serum, Toxoid and Vaccine into Muscle, Percutaneous Approach (ICD-10-PCS; 2017-03-31)
DX: J44.1 Chronic obstructive pulmonary disease with (acute) exacerbation (principal); J96.01 Acute respiratory failure with hypoxia; J96.02 Acute respiratory failure with hypercapnia; E43 Unspecified severe protein-calorie malnutrition; S36.892A Contusion of other intra-abdominal organs, initial encounter; D62 Acute posthemorrhagic anemia; W01.0XXA Fall on same level from slipping, tripping and stumbling without subsequent striking against object, initial encounter; Y92.239 Unspecified place in hospital as the place of occurrence of the external cause; I25.10 Atherosclerotic heart disease of native coronary artery without angina pectoris; R74.8 Abnormal levels of other serum enzymes; M16.11 Unilateral primary osteoarthritis, right hip; F17.210 Nicotine dependence, cigarettes, uncomplicated; I10 Essential (primary) hypertension; E78.5 Hyperlipidemia, unspecified; R25.1 Tremor, unspecified; R31.0 Gross hematuria; E87.71 Transfusion associated circulatory overload; Z23 Encounter for immunization; Z68.20 Body mass index [BMI] 20.0-20.9, adult; Z79.899 Other long term (current) drug therapy; Z95.1 Presence of aortocoronary bypass graft; Z88.0 Allergy status to penicillin; Z88.2 Allergy status to sulfonamides; Z82.49 Family history of ischemic heart disease and other diseases of the circulatory system; Z81.1 Family history of alcohol abuse and dependence
CPT/HCPCS: 36415; 36430; 36600; 71010; 71260; 72192; 74160; 74177; 80048; 80053; 81001; 82803; 83605; 83735; 84100; 84439; 84443; 84484; 85025; 85027; 85610; 85730; 86850; 86900; 86901; 86920; 87040; 87070; 87077; 87086; 87205; 90686; 93005; 93010; 93306; 94640; 94660; 99291; G8978-GP; G8979-GP; G8987-GO; G8988-GO; G8989-GO; J1644; J1940; J1956; J2920; J2930; J3430; J3490; J7030; J7040; J7512; J7614; J7620; P9016